=== PATIENT | male | born 1965 | race African-American/Black ===

== ENCOUNTER 2018-04-20 12:25 | Inpatient (IN) | payer MEDICAID ==
[~2018-04-20] VITALS: Ht 180.3 cm; Wt 138.1 kg
[2018-04-20] MEDS ORDERED: ASPIRIN 81 MG TABLET CHEW PO ONE (13:00)
[2018-04-20 13:22] LABS: ALBUMIN 3.1 g/dL (3.4-5.0); ANION GAP 9 mmol/L (5-15); CALCIUM 8.3 mg/dL (8.5-10.1); CHLORIDE 105 mmol/L (98-107)
[2018-04-20 13:28] LABS: ALANINE AMINOTRANSFERASE 33 U/L (12-78); ALKALINE PHOSPHATASE 77 U/L (45-117); BASOPHILS # (AUTO) 0.06 x10^3/uL (0-0.1); BASOPHILS % (AUTO) 1 % (0-1); BILIRUBIN,TOTAL 0.8 mg/dL (0.2-1.0); CREATININE 1.66 mg/dL (0.7-1.3); EOSINOPHILS # (AUTO) 0.27 x10^3/uL (0-0.4); EOSINOPHILS % (AUTO) 3 % (1-7); LYMPHOCYTES # (AUTO) 2.59 x10^3/uL (1-3.4); LYMPHOCYTES % (AUTO) 29 % (22-44); MD NO; MEAN CORPUSCULAR HEMOGLOBIN 31.4 pg (27.5-34.5); MEAN CORPUSCULAR HGB CONC 33.7 g/dL (33.2-36.2); MEAN CORPUSCULAR VOLUME 93.1 fL (81-97); MEAN PLATELET VOLUME 12.4 fL (7.4-10.4); MONOCYTES # (AUTO) 0.92 x10^3/uL (0.2-0.8); MONOCYTES % (AUTO) 10 % (2-9); NEUTROPHILS # (AUTO) 4.99 x10^3/uL (1.8-6.8); NEUTROPHILS % (AUTO) 57 % (42-75); PLATELET COUNT 162 x10^3/uL (130-400); RED BLOOD COUNT 4.96 x10^6/uL (4.38-5.82); RED CELL DISTRIBUTION WIDTH 15.7 % (9.4-14.8); TOTAL PROTEIN 6.7 g/dL (6.4-8.2); TROPONIN I < 0.015 ng/mL (0.000-0.045)
[2018-04-20] MEDS ORDERED: PLEASE ENTER ALLERGIES MC SCH (14:00)
[2018-04-20] MEDS: SODIUM CHLORIDE 0.9% 1,000 ML IV SCH (14:32)
[2018-04-20] MEDS ORDERED: FURO20TA3 PO (14:35)
[2018-04-20] MEDS ORDERED: ATOR-2 PO (14:35)
[2018-04-20] MEDS ORDERED: HYDR-3343 PO (14:35)
[2018-04-20] MEDS ORDERED: POT25TAB PO (14:35)
[2018-04-20] MEDS ORDERED: SPIR25TA3 PO (14:35)
[2018-04-20] MEDS ORDERED: METO-99 PO (14:35)
[2018-04-20] MEDS ORDERED: TIOT18CA INH (14:35)
[2018-04-20] MEDS ORDERED: ONDANSETRON 2MG/ML, 2ML IVPush PRN (15:00)
[2018-04-20] MEDS ORDERED: FUROSEMIDE 40 MG/4 ML IV ONE (15:00)
[2018-04-20] MEDS ORDERED: ALBUTEROL SULFATE 2.5 MG/3 ML NPPB PRN (17:00)
[2018-04-20 17:05] VITALS: BP 115/76
[2018-04-20] MEDS ORDERED: IPRATROPIUM 0.5 MG/2.5 ML INHA ONE (17:41)
[2018-04-20 18:40] VITALS: BP 129/83
[2018-04-20 18:50] LABS: TROPONIN I < 0.015 ng/mL (0.000-0.045)
[2018-04-20] MEDS: HEPARIN 5,000 UNITS/ML, 1ML SQ SCH (22:45)
[2018-04-21 00:47] LABS: BASOPHILS # (AUTO) 0.07 x10^3/uL (0-0.1); BASOPHILS % (AUTO) 1 % (0-1); EOSINOPHILS # (AUTO) 0.28 x10^3/uL (0-0.4); EOSINOPHILS % (AUTO) 4 % (1-7); LYMPHOCYTES # (AUTO) 2.94 x10^3/uL (1-3.4); LYMPHOCYTES % (AUTO) 38 % (22-44); MD NO; MEAN CORPUSCULAR HEMOGLOBIN 32.1 pg (27.5-34.5); MEAN CORPUSCULAR HGB CONC 34.3 g/dL (33.2-36.2); MEAN CORPUSCULAR VOLUME 93.5 fL (81-97); MEAN PLATELET VOLUME 12.1 fL (7.4-10.4); MONOCYTES # (AUTO) 0.87 x10^3/uL (0.2-0.8); MONOCYTES % (AUTO) 11 % (2-9); NEUTROPHILS % (AUTO) 46 % (42-75); PLATELET COUNT 161 x10^3/uL (130-400); RED BLOOD COUNT 4.76 x10^6/uL (4.38-5.82); RED CELL DISTRIBUTION WIDTH 15.3 % (9.4-14.8)
[2018-04-21] MEDS ORDERED: ATOR20TA9 PO (00:49)
[2018-04-21] MEDS ORDERED: POTA20TA89 PO (00:49)
[2018-04-21] MEDS: IPRATROPIUM 0.5 MG/2.5 ML INHA NPPB SCH ×5 (01:00→20:26)
[2018-04-21 01:01] LABS: TROPONIN I < 0.015 ng/mL (0.000-0.045)
[2018-04-21] MEDS: ACETAMINOPHEN 325 MG TABLET PO PRN ×2 (01:01→20:37)
[2018-04-21 01:05] LABS: ALANINE AMINOTRANSFERASE 35 U/L (12-78); ALBUMIN 3.1 g/dL (3.4-5.0); ANION GAP 9 mmol/L (5-15); CALCIUM 8.5 mg/dL (8.5-10.1); CHLORIDE 107 mmol/L (98-107); CREATININE 1.61 mg/dL (0.7-1.3)
[2018-04-21 01:16] LABS: ALKALINE PHOSPHATASE 81 U/L (45-117); BILIRUBIN,TOTAL 0.6 mg/dL (0.2-1.0); THYROID STIMULATING HORMONE 0.881 mIU/L (0.358-3.740); TOTAL PROTEIN 6.7 g/dL (6.4-8.2)
[2018-04-21 02:21] VITALS: BP 115/66
[2018-04-21] MEDS: SODIUM CHLORIDE 0.9% 1,000 ML IV SCH (03:52)
[2018-04-21] MEDS ORDERED: PNEUMOCOCCAL 23 VACCINE IM-VACC ONE (07:00)
[2018-04-21 07:36] VITALS: BP 144/102
[2018-04-21] MEDS: HEPARIN 5,000 UNITS/ML, 1ML SQ SCH ×2 (08:44→20:37)
[2018-04-21] MEDS ORDERED: MAGNESIUM SULFATE PMX 2GM/50ML 50 ML IV ONE (09:00)
[2018-04-21] MEDS ORDERED: FUROSEMIDE 40 MG/4 ML IV ONE (09:30)
[2018-04-21] MEDS ORDERED: POTASSIUM CHLORIDE 20 MEQ TAB.ER.PRT PO ONE (09:30)
[2018-04-21 14:03] VITALS: BP 149/87
[2018-04-21 19:34] VITALS: BP 143/84
[2018-04-22 01:16] VITALS: BP 134/73
[2018-04-22] MEDS: IPRATROPIUM 0.5 MG/2.5 ML INHA NPPB SCH ×2 (03:10→08:31)
[2018-04-22 07:27] VITALS: BP 142/78
[2018-04-22] MEDS: HEPARIN 5,000 UNITS/ML, 1ML SQ SCH (09:33)
[2018-04-22] MEDS ORDERED: POTASSIUM CHLORIDE 20 MEQ TAB.ER.PRT PO ONE (10:30)
[2018-04-22] MEDS ORDERED: FUROSEMIDE 40 MG/4 ML IV ONE (10:30)
== END 2018-04-22 12:45 | disposition home or self-care (01) | DRG 313 ==
LOC: ED 14:09 → SUATTDRO 14:14 → EDIP 14:17 → 5SO 15:36
PROVIDERS: ADMIT Hospitalist; ATTEND Hospitalist
DX: R07.2 Precordial pain (principal); E43 Unspecified severe protein-calorie malnutrition; Z68.41 Body mass index [BMI] 40.0-44.9, adult; I16.1 Hypertensive emergency; N18.4 Chronic kidney disease, stage 4 (severe); I13.0 Hypertensive heart and chronic kidney disease with heart failure and stage 1 through stage 4 chronic kidney disease, or unspecified chronic kidney disease; J98.11 Atelectasis; E66.01 Morbid (severe) obesity due to excess calories; F17.210 Nicotine dependence, cigarettes, uncomplicated; E78.5 Hyperlipidemia, unspecified; I50.9 Heart failure, unspecified; I27.20 Pulmonary hypertension, unspecified; Z82.49 Family history of ischemic heart disease and other diseases of the circulatory system; Z86.79 Personal history of other diseases of the circulatory system; Z95.1 Presence of aortocoronary bypass graft; Z83.3 Family history of diabetes mellitus; Z23 Encounter for immunization; Z90.49 Acquired absence of other specified parts of digestive tract
CPT/HCPCS: 36415; 99285; J7644; 71046; 78582; 80053; 83735; 83880; 84100; 84443; 84484; 85025; 85379; 90732; 93005; 93308; 93321; 93325; 94640; J1644; J1940; A9540; A9558; C9898; J3475; J7030

== ENCOUNTER 2018-04-24 15:26 | Inpatient (IN) | payer MEDICAID ==
[~2018-04-24] VITALS: Ht 180.3 cm; Wt 137.5 kg
[~2018-04-24 15:26] MED LIST: ATOR-2 PO; ATOR20TA9 PO; FURO20TA3 PO; HYDR-3343 PO; METO-99 PO; POT25TAB PO; POTA20TA89 PO; SPIR25TA5 PO; TIOT18CA INH
[2018-04-24] MEDS ORDERED: METOPROLOL 1 MG/ML, 5ML ONE (16:16)
[2018-04-24 16:23] LABS: BASOPHILS # (AUTO) 0.08 x10^3/uL (0-0.1); BASOPHILS % (AUTO) 1 % (0-1); EOSINOPHILS # (AUTO) 0.22 x10^3/uL (0-0.4); EOSINOPHILS % (AUTO) 2 % (1-7); LYMPHOCYTES % (AUTO) 31 % (22-44); MD NO; MEAN CORPUSCULAR HEMOGLOBIN 31.5 pg (27.5-34.5); MEAN CORPUSCULAR HGB CONC 33.8 g/dL (33.2-36.2); MEAN PLATELET VOLUME 12.3 fL (7.4-10.4); MONOCYTES # (AUTO) 1.25 x10^3/uL (0.2-0.8); MONOCYTES % (AUTO) 14 % (2-9); NEUTROPHILS # (AUTO) 4.75 x10^3/uL (1.8-6.8); NEUTROPHILS % (AUTO) 52 % (42-75); PLATELET COUNT 176 x10^3/uL (130-400); RED BLOOD COUNT 5.19 x10^6/uL (4.38-5.82); RED CELL DISTRIBUTION WIDTH 15.7 % (9.4-14.8)
[2018-04-24] MEDS ORDERED: METOPROLOL 1 MG/ML, 5ML IVPush ONE (16:30)
[2018-04-24 16:32] LABS: ALANINE AMINOTRANSFERASE 34 U/L (12-78); ALBUMIN 3.2 g/dL (3.4-5.0); ANION GAP 7 mmol/L (5-15); CALCIUM 8.4 mg/dL (8.5-10.1); CHLORIDE 112 mmol/L (98-107); CREATININE 1.95 mg/dL (0.7-1.3)
[2018-04-24 16:36] LABS: ALKALINE PHOSPHATASE 83 U/L (45-117); BILIRUBIN,TOTAL 0.8 mg/dL (0.2-1.0); TOTAL PROTEIN 7.4 g/dL (6.4-8.2); TROPONIN I < 0.015 ng/mL (0.000-0.045)
[2018-04-24] MEDS ORDERED: SODIUM CHLORIDE 0.9% 1,000ML IVBOLUS ONE (17:00)
[2018-04-24] MEDS ORDERED: VERAPAMIL 2.5 MG/ML, 2ML IVPush ONE ×2 (17:00→17:30)
[2018-04-24] MEDS ORDERED: VERAPAMIL 2.5 MG/ML, 2ML ONE ×2 (17:04→17:18)
[2018-04-24] MEDS ORDERED: POLYETHYLENE GLYCOL 17 GM PACKET PO PRN (18:00)
[2018-04-24] MEDS: METOPROLOL TARTRATE 50 MG TABLET PO SCH ×2 (18:00→21:30)
[2018-04-24] MEDS ORDERED: BISACODYL 10 MG SUPP PR PRN (18:00)
[2018-04-24] MEDS ORDERED: DIGOXIN 0.25 MG/ML, 2ML ONE (18:00)
[2018-04-24] MEDS ORDERED: SODIUM CHLORIDE FLUSH 10ML SYR IVF PRN (18:00)
[2018-04-24] MEDS ORDERED: ONDANSETRON 2MG/ML, 2ML IVPush PRN (18:00)
[2018-04-24] MEDS ORDERED: DIGOXIN 0.25 MG/ML, 2ML IVPush ONE (18:00)
[2018-04-24] MEDS ORDERED: HEPARIN 25,000 UNITS/500ML PMX 500 ML ONE (18:29)
[2018-04-24 18:33] LABS: THYROID STIMULATING HORMONE 1.05 mIU/L (0.358-3.740)
[2018-04-24 18:41] VITALS: BP 123/69
[2018-04-24] MEDS ORDERED: MAGNESIUM SULFATE PMX 2GM/50ML 50 ML IV ONE (19:00)
[2018-04-24] MEDS ORDERED: HEPARIN 5,000 UNITS/ML, 1ML IV ONE (19:00)
[2018-04-24] MEDS: HEPARIN 25,000 UNITS/500ML PMX 500 ML IV PRN (19:11)
[2018-04-24 20:08] VITALS: BP 107/66
[2018-04-24] MEDS ORDERED: CLON0.1T PO (20:14)
[2018-04-24 21:26] VITALS: BP 103/70
[2018-04-24] MEDS: ATORVASTATIN 20 MG TABLET PO SCH (21:29)
[2018-04-24] MEDS: NICOTINE 14MG/24 HR PATCH.TD24 TD SCH (21:30)
[2018-04-24] MEDS: SODIUM CHLORIDE FLUSH 10ML SYR IVF SCH (21:31)
[2018-04-24 22:35] LABS: TROPONIN I 0.016 ng/mL (0.000-0.045)
[2018-04-24] MEDS: ALBUTEROL/IPRATROPIUM 2.5MG/0.5MG, 3 ML NPPB PRN (23:34)
[2018-04-25] VITALS (7 sets, daily range): BP systolic 108–154; BP diastolic 60–88
[2018-04-25] MEDS ORDERED: DIGOXIN 0.25 MG/ML, 2ML IVPush ONE
[2018-04-25] MEDS: HEPARIN 5,000 UNITS/ML, 1ML IV PRN ×3 (01:51→17:17)
[2018-04-25 04:32] LABS: BASOPHILS # (AUTO) 0.07 x10^3/uL (0-0.1); BASOPHILS % (AUTO) 1 % (0-1); EOSINOPHILS # (AUTO) 0.31 x10^3/uL (0-0.4); EOSINOPHILS % (AUTO) 4 % (1-7); LYMPHOCYTES % (AUTO) 35 % (22-44); MD NO; MEAN CORPUSCULAR HGB CONC 34.4 g/dL (33.2-36.2); MEAN PLATELET VOLUME 12.2 fL (7.4-10.4); MONOCYTES % (AUTO) 12 % (2-9); NEUTROPHILS # (AUTO) 4.11 x10^3/uL (1.8-6.8); NEUTROPHILS % (AUTO) 48 % (42-75); PLATELET COUNT 152 x10^3/uL (130-400); RED BLOOD COUNT 5.02 x10^6/uL (4.38-5.82); RED CELL DISTRIBUTION WIDTH 15.1 % (9.4-14.8)
[2018-04-25 04:44] LABS: ALANINE AMINOTRANSFERASE 31 U/L (12-78); ANION GAP 6 mmol/L (5-15); CALCIUM 8.6 mg/dL (8.5-10.1); CHLORIDE 111 mmol/L (98-107)
[2018-04-25 04:49] LABS: ALKALINE PHOSPHATASE 77 U/L (45-117); BILIRUBIN,TOTAL 0.7 mg/dL (0.2-1.0); CREATININE 1.79 mg/dL (0.7-1.3); TOTAL PROTEIN 6.9 g/dL (6.4-8.2)
[2018-04-25] MEDS: FUROSEMIDE 40 MG/4 ML IV SCH ×2 (09:23→17:15)
[2018-04-25] MEDS: SODIUM CHLORIDE FLUSH 10ML SYR IVF SCH ×2 (09:28→21:49)
[2018-04-25] MEDS: SENNA/DOCUSATE TABLET PO SCH (09:29)
[2018-04-25] MEDS: Tiotropium Bromide** (Spiriva**) 18 MCG INH SCH (09:57)
[2018-04-25] MEDS ORDERED: NITROGLYCERIN 0.4 MG BOTTLE (25 TABS) SL PRN (10:00)
[2018-04-25] MEDS ORDERED: NITROGLYCERIN 0.4 MG/SPRAY SL PRN (10:00)
[2018-04-25 10:09] LABS: TROPONIN I < 0.015 ng/mL (0.000-0.045)
[2018-04-25] MEDS: ASPIRIN 81 MG TABLET CHEW PO SCH (10:47)
[2018-04-25] MEDS: METOPROLOL TARTRATE 50 MG TABLET PO SCH ×3 (12:44→21:49)
[2018-04-25] MEDS: HEPARIN 25,000 UNITS/500ML PMX 500 ML IV PRN (13:37)
[2018-04-25] MEDS ORDERED: PHARMACY MAY ADJ FOR RENAL FX MC PRN (16:30)
[2018-04-25] MEDS: NICOTINE 14MG/24 HR PATCH.TD24 TD SCH (17:16)
[2018-04-25] MEDS: ALBUTEROL/IPRATROPIUM 2.5MG/0.5MG, 3 ML NPPB PRN (19:55)
[2018-04-25] MEDS: ATORVASTATIN 20 MG TABLET PO SCH (21:48)
[2018-04-26 03:00] VITALS: BP 118/72
[2018-04-26] MEDS: HEPARIN 25,000 UNITS/500ML PMX 500 ML IV PRN ×2 (04:52→17:51)
[2018-04-26 05:01] LABS: BASOPHILS # (AUTO) 0.13 x10^3/uL (0-0.1); BASOPHILS % (AUTO) 2 % (0-1); EOSINOPHILS # (AUTO) 0.27 x10^3/uL (0-0.4); EOSINOPHILS % (AUTO) 3 % (1-7); LYMPHOCYTES # (AUTO) 3.03 x10^3/uL (1-3.4); LYMPHOCYTES % (AUTO) 37 % (22-44); MD NO; MEAN CORPUSCULAR HGB CONC 34.1 g/dL (33.2-36.2); MEAN CORPUSCULAR VOLUME 93.9 fL (81-97); MEAN PLATELET VOLUME 12.8 fL (7.4-10.4); MONOCYTES # (AUTO) 0.91 x10^3/uL (0.2-0.8); MONOCYTES % (AUTO) 11 % (2-9); NEUTROPHILS # (AUTO) 3.96 x10^3/uL (1.8-6.8); NEUTROPHILS % (AUTO) 48 % (42-75); PLATELET COUNT 152 x10^3/uL (130-400); RED BLOOD COUNT 4.89 x10^6/uL (4.38-5.82)
[2018-04-26 05:17] LABS: ANION GAP 9 mmol/L (5-15); CALCIUM 8.3 mg/dL (8.5-10.1); CHLORIDE 110 mmol/L (98-107)
[2018-04-26 05:22] LABS: CHOLESTEROL, TOTAL 131 mg/dL (140-239); CREATININE 1.86 mg/dL (0.7-1.3); HDL CHOL % 25 % (26-37); HDL CHOLESTEROL (DIRECT) 33 mg/dL (40-60); LDL CHOLESTEROL,CALCULATED 74 mg/dL (54-169); LDL/HDL RATIO 2.2 (0.5-3.0); TRIGLYCERIDES 120 mg/dL (50-200); VLDL CHOLESTEROL 24 mg/dL (0-25)
[2018-04-26] MEDS: HEPARIN 5,000 UNITS/ML, 1ML IV PRN ×2 (05:55→18:58)
[2018-04-26] MEDS: METOPROLOL TARTRATE 50 MG TABLET PO SCH ×3 (06:36→22:45)
[2018-04-26] MEDS: Tiotropium Bromide** (Spiriva**) 18 MCG INH SCH (08:07)
[2018-04-26 08:20] VITALS: BP 129/86
[2018-04-26] MEDS: SENNA/DOCUSATE TABLET PO SCH (09:00)
[2018-04-26] MEDS: SODIUM CHLORIDE FLUSH 10ML SYR IVF SCH ×2 (09:02→20:09)
[2018-04-26] MEDS: FUROSEMIDE 40 MG/4 ML IV SCH (09:02)
[2018-04-26] MEDS: ASPIRIN 81 MG TABLET CHEW PO SCH (09:02)
[2018-04-26 13:45] VITALS: BP 150/99
[2018-04-26] MEDS: ALBUTEROL/IPRATROPIUM 2.5MG/0.5MG, 3 ML NPPB PRN (14:00)
[2018-04-26] MEDS ORDERED: SODIUM BICARB 8.4%,50ML SYR. 150 MEQ in DEXTROSE 5% 1,000 ML IV SCH (16:00)
[2018-04-26] MEDS: NICOTINE 14MG/24 HR PATCH.TD24 TD SCH (17:52)
[2018-04-26 19:14] VITALS: BP 119/77
[2018-04-26] MEDS: ATORVASTATIN 20 MG TABLET PO SCH (20:07)
[2018-04-26] MEDS ORDERED: ACETYLCYSTEINE 600 MG CAPSULE PO SCH (21:00)
[2018-04-27 01:34] LABS: ANION GAP 7 mmol/L (5-15); CALCIUM 8.7 mg/dL (8.5-10.1); CHLORIDE 108 mmol/L (98-107); CREATININE 1.82 mg/dL (0.7-1.3)
[2018-04-27 02:00] VITALS: BP 122/78
[2018-04-27] MEDS: HEPARIN 25,000 UNITS/500ML PMX 500 ML IV PRN ×3 (06:14→12:34)
[2018-04-27] MEDS: METOPROLOL TARTRATE 50 MG TABLET PO SCH ×3 (06:16→20:32)
[2018-04-27] MEDS: ASPIRIN 81 MG TABLET CHEW PO SCH (08:23)
[2018-04-27] MEDS: SODIUM CHLORIDE FLUSH 10ML SYR IVF SCH ×2 (08:23→20:33)
[2018-04-27 08:24] VITALS: BP 138/74
[2018-04-27] MEDS: Tiotropium Bromide** (Spiriva**) 18 MCG INH SCH (08:24)
[2018-04-27] MEDS: SENNA/DOCUSATE TABLET PO SCH (08:24)
[2018-04-27] MEDS ORDERED: FUROSEMIDE 40 MG/4 ML IV SCH (09:00)
[2018-04-27] MEDS ORDERED: FENTANYL PF 100 MCG/2ML ONE (09:24)
[2018-04-27] MEDS ORDERED: MIDAZOLAM 1 MG/ML, 5ML ONE (09:24)
[2018-04-27] MEDS ORDERED: NITROGLYCERIN 5 MG/ML, 10ML ONE (09:25)
[2018-04-27] MEDS ORDERED: VERAPAMIL 2.5 MG/ML, 2ML ONE (09:25)
[2018-04-27] MEDS ORDERED: DIPHENHYDRAMINE 50 MG/ML, 1ML ONE (09:25)
[2018-04-27] MEDS ORDERED: LIDOCAINE-MPF 2%, 2ML ONE (09:26)
[2018-04-27] MEDS ORDERED: HEPARIN 1,000 UNITS/ML, 10ML ONE (10:08)
[2018-04-27] MEDS ORDERED: BIVALIRUDIN 250 MG ONE (10:11)
[2018-04-27] MEDS ORDERED: TICAGRELOR 90 MG TABLET ONE (10:53)
[2018-04-27] MEDS: SODIUM CHLORIDE 0.9% 1,000 ML IV SCH ×2 (11:39→18:27)
[2018-04-27] MEDS: ALBUTEROL/IPRATROPIUM 2.5MG/0.5MG, 3 ML NPPB PRN (12:20)
[2018-04-27] MEDS ORDERED: PROPOFOL 10 MG/ML, 20ML ONE (13:15)
[2018-04-27 14:43] VITALS: BP 132/85
[2018-04-27] MEDS ORDERED: AMIODARONE 150 MG in DEXTROSE 5% 100 ML IV ONE (15:00)
[2018-04-27] MEDS ORDERED: AMIODARONE 900 MG in DEXTROSE 5% 482 ML IV PRN (15:00)
[2018-04-27] MEDS ORDERED: FILTER 0.22 MICRON IV PRN (15:30)
[2018-04-27] MEDS: NICOTINE 14MG/24 HR PATCH.TD24 TD SCH (18:30)
[2018-04-27] MEDS: HEPARIN 5,000 UNITS/ML, 1ML IV PRN (20:21)
[2018-04-27 20:24] VITALS: BP 115/61
[2018-04-27] MEDS: ATORVASTATIN 20 MG TABLET PO SCH (20:31)
[2018-04-27] MEDS: TICAGRELOR 90 MG TABLET PO SCH (20:32)
[2018-04-28] MEDS: HEPARIN 25,000 UNITS/500ML PMX 500 ML IV PRN ×2 (01:21→13:44)
[2018-04-28] MEDS: ACETAMINOPHEN 325 MG TABLET PO PRN ×4 (01:25→21:49)
[2018-04-28 01:30] VITALS: BP_SYST 125; BP_SYST 156; BP_DIAS 101; BP_DIAS 71
[2018-04-28 02:45] LABS: ANION GAP 7 mmol/L (5-15); CALCIUM 8.2 mg/dL (8.5-10.1); CHLORIDE 105 mmol/L (98-107); CREATININE 1.77 mg/dL (0.7-1.3)
[2018-04-28] MEDS: SODIUM CHLORIDE 0.9% 1,000 ML IV SCH (03:39)
[2018-04-28 05:12] VITALS: BP 154/91
[2018-04-28] MEDS: METOPROLOL TARTRATE 50 MG TABLET PO SCH ×3 (05:16→21:37)
[2018-04-28 06:27] VITALS: BP 154/94
[2018-04-28] MEDS: TICAGRELOR 90 MG TABLET PO SCH ×2 (08:05→21:37)
[2018-04-28] MEDS: ASPIRIN 81 MG TABLET CHEW PO SCH (08:05)
[2018-04-28] MEDS: FUROSEMIDE 40 MG TABLET PO SCH (08:05)
[2018-04-28] MEDS: SENNA/DOCUSATE TABLET PO SCH (09:00)
[2018-04-28] MEDS: Tiotropium Bromide** (Spiriva**) 18 MCG INH SCH (09:00)
[2018-04-28] MEDS: POTASSIUM CHLORIDE 20 MEQ TAB.ER.PRT PO SCH ×2 (09:05→17:23)
[2018-04-28] MEDS: SODIUM CHLORIDE FLUSH 10ML SYR IVF SCH ×2 (09:14→21:38)
[2018-04-28] MEDS: AMIODARONE 200 MG TABLET PO SCH ×2 (11:31→21:37)
[2018-04-28] MEDS: ALBUTEROL/IPRATROPIUM 2.5MG/0.5MG, 3 ML NPPB PRN (11:45)
[2018-04-28 14:00] VITALS: BP 162/84
[2018-04-28] MEDS: NICOTINE 14MG/24 HR PATCH.TD24 TD SCH (17:23)
[2018-04-28 19:34] VITALS: BP 146/98
[2018-04-28] MEDS: ATORVASTATIN 20 MG TABLET PO SCH (21:37)
[2018-04-28 21:38] VITALS: BP 135/85
[2018-04-29] VITALS (7 sets, daily range): BP systolic 130–170; BP diastolic 69–104
[2018-04-29] MEDS: HEPARIN 25,000 UNITS/500ML PMX 500 ML IV PRN (02:23)
[2018-04-29 05:16] LABS: CHLORIDE 106 mmol/L (98-107)
[2018-04-29 05:24] LABS: ANION GAP 9 mmol/L (5-15); CALCIUM 8.9 mg/dL (8.5-10.1); CREATININE 1.68 mg/dL (0.7-1.3)
[2018-04-29] MEDS: ACETAMINOPHEN 325 MG TABLET PO PRN (05:38)
[2018-04-29] MEDS: METOPROLOL TARTRATE 50 MG TABLET PO SCH ×3 (05:38→21:01)
[2018-04-29] MEDS: Tiotropium Bromide** (Spiriva**) 18 MCG INH SCH (09:00)
[2018-04-29] MEDS: SENNA/DOCUSATE TABLET PO SCH (09:02)
[2018-04-29] MEDS: SODIUM CHLORIDE FLUSH 10ML SYR IVF SCH ×2 (09:02→21:01)
[2018-04-29] MEDS: AMIODARONE 200 MG TABLET PO SCH ×2 (09:02→21:01)
[2018-04-29] MEDS: ASPIRIN 81 MG TABLET CHEW PO SCH (09:02)
[2018-04-29] MEDS: FUROSEMIDE 40 MG TABLET PO SCH (09:03)
[2018-04-29] MEDS: TICAGRELOR 90 MG TABLET PO SCH ×2 (09:03→21:53)
[2018-04-29] MEDS: ALBUTEROL/IPRATROPIUM 2.5MG/0.5MG, 3 ML NPPB PRN ×2 (09:18→19:39)
[2018-04-29] MEDS ORDERED: OMNIPAQUE 350 MG/ML, 150 ML BOTTLE ONE (10:15)
[2018-04-29] MEDS: APIXABAN 5 MG TABLET PO SCH ×2 (12:04→21:53)
[2018-04-29 16:13] LABS: ANION GAP 5 mmol/L (5-15); CALCIUM 9.2 mg/dL (8.5-10.1); CHLORIDE 105 mmol/L (98-107)
[2018-04-29 16:14] LABS: CREATININE 1.76 mg/dL (0.7-1.3)
[2018-04-29] MEDS: POTASSIUM CHLORIDE 20 MEQ TAB.ER.PRT PO SCH (17:44)
[2018-04-29] MEDS: NICOTINE 14MG/24 HR PATCH.TD24 TD SCH (17:44)
[2018-04-29] MEDS: ATORVASTATIN 20 MG TABLET PO SCH (21:01)
[2018-04-29] MEDS ORDERED: hydrALAzine 20 MG/ML, 1ML IV PRN (21:30)
[2018-04-30 00:30] VITALS: BP_SYST 135; BP_SYST 147; BP_SYST 158; BP_DIAS 73; BP_DIAS 85; BP_DIAS 97
[2018-04-30] MEDS ORDERED: LABETALOL 5MG/ML, 20ML IVPush ONE (01:00)
[2018-04-30 02:45] VITALS: BP 112/59
[2018-04-30 05:12] VITALS: BP 150/84
[2018-04-30] MEDS: METOPROLOL TARTRATE 50 MG TABLET PO SCH ×2 (05:13→13:03)
[2018-04-30 06:43] VITALS: BP 165/94
[2018-04-30 07:06] VITALS: BP 144/95
[2018-04-30] MEDS: SENNA/DOCUSATE TABLET PO SCH (09:00)
[2018-04-30] MEDS: POTASSIUM CHLORIDE 20 MEQ TAB.ER.PRT PO SCH (09:50)
[2018-04-30] MEDS: FUROSEMIDE 40 MG TABLET PO SCH (09:51)
[2018-04-30] MEDS: APIXABAN 5 MG TABLET PO SCH (09:51)
[2018-04-30] MEDS: AMIODARONE 200 MG TABLET PO SCH (09:51)
[2018-04-30] MEDS: ASPIRIN 81 MG TABLET CHEW PO SCH (09:51)
[2018-04-30] MEDS: TICAGRELOR 90 MG TABLET PO SCH (09:51)
[2018-04-30] MEDS: SODIUM CHLORIDE FLUSH 10ML SYR IVF SCH (09:52)
[2018-04-30] MEDS: Tiotropium Bromide** (Spiriva**) 18 MCG INH SCH (09:52)
[2018-04-30] MEDS: ACETAMINOPHEN 325 MG TABLET PO PRN (10:02)
[2018-04-30 11:01] VITALS: BP 126/82
[2018-04-30] MEDS ORDERED: ASPI-515 PO (11:33)
[2018-04-30] MEDS ORDERED: AMIO200T42 PO (11:33)
[2018-04-30] MEDS ORDERED: PRED20TA PO (11:33)
[2018-04-30] MEDS ORDERED: TICA90TA PO (11:33)
[2018-04-30] MEDS ORDERED: METO50TA82 PO (11:33)
[2018-04-30] MEDS ORDERED: NITR0.4T SL (11:33)
[2018-04-30] MEDS ORDERED: APIX5TAB PO (11:33)
[2018-04-30] MEDS ORDERED: ATOR20TA9 PO (11:33)
[2018-04-30] MEDS ORDERED: POTA20TA6 PO ×2 (11:33→14:55)
[2018-04-30] MEDS ORDERED: FURO40TA6 PO (11:35)
== END 2018-04-30 14:03 | disposition home or self-care (01) | DRG 248 ==
LOC: ED 17:42 → EDIP 17:43 → ED 17:55 → 5SO 18:45 → DCLOUNGE 04-30 13:43
PROVIDERS: ADMIT Hospitalist; ATTEND Hospitalist
PROC: 02703DZ Dilation of Coronary Artery, One Artery with Intraluminal Device, Percutaneous Approach (ICD-10-PCS; 2018-04-27)
PROC: 4A023N7 Measurement of Cardiac Sampling and Pressure, Left Heart, Percutaneous Approach (ICD-10-PCS; 2018-04-27)
PROC: B2111ZZ Fluoroscopy of Multiple Coronary Arteries using Low Osmolar Contrast (ICD-10-PCS; 2018-04-27)
PROC: B2151ZZ Fluoroscopy of Left Heart using Low Osmolar Contrast (ICD-10-PCS; 2018-04-27)
PROC: 5A2204Z Restoration of Cardiac Rhythm, Single (ICD-10-PCS; principal; 2018-04-27 13:00)
DX: I25.10 Atherosclerotic heart disease of native coronary artery without angina pectoris (principal); I50.33 Acute on chronic diastolic (congestive) heart failure; D68.59 Other primary thrombophilia; E44.1 Mild protein-calorie malnutrition; I13.0 Hypertensive heart and chronic kidney disease with heart failure and stage 1 through stage 4 chronic kidney disease, or unspecified chronic kidney disease; I48.92 Unspecified atrial flutter; J98.11 Atelectasis; N17.9 Acute kidney failure, unspecified; Z68.41 Body mass index [BMI] 40.0-44.9, adult; E66.01 Morbid (severe) obesity due to excess calories; E78.5 Hyperlipidemia, unspecified; E87.6 Hypokalemia; F17.210 Nicotine dependence, cigarettes, uncomplicated; I48.91 Unspecified atrial fibrillation; N18.3 Chronic kidney disease, stage 3 (moderate); M10.9 Gout, unspecified; Z71.6 Tobacco abuse counseling; Z79.899 Other long term (current) drug therapy; Z82.49 Family history of ischemic heart disease and other diseases of the circulatory system; Z86.79 Personal history of other diseases of the circulatory system; Z91.14 Patient's other noncompliance with medication regimen; Z95.5 Presence of coronary angioplasty implant and graft
CPT/HCPCS: 36415; 73630; 92960; 93458; 99285; J7620; 71046; 71275; 80048; 80053; 80061; 80162; 83735; 83880; 84443; 84484; 84550; 85025; 85520; 93005; 93312; 93321; 93325; 94640; 94660; 96374; 96375; 99156; 99157; C1769; C1876; C1894; J0583; J1644; J1940; J2250; J2704; J3010; J3490; J7070; Q9967; C1725; C1887; J0282; J1160; J1200; J3475; J7030; J7512

== ENCOUNTER 2018-05-09 09:33 | Emergency (ER) | payer MEDICAID ==
[~2018-05-09] VITALS: Ht 180.3 cm; Wt 139.5 kg
[~2018-05-09 09:33] MED LIST changes: +AMIO200T42 PO; +APIX5TAB PO; +ASPI-515 PO; +CLON0.1T PO; +FURO40TA6 PO; +METO50TA82 PO; +NITR0.4T SL; +POTA20TA6 PO; +PRED20TA PO; +TICA90TA PO
[2018-05-09] MEDS ORDERED: METO25TA35 PO (09:55)
[2018-05-09] MEDS ORDERED: CLON0.25 PO (09:56)
[2018-05-09 10:38] LABS: BASOPHILS # (AUTO) 0.05 x10^3/uL (0-0.1); BASOPHILS % (AUTO) 1 % (0-1); EOSINOPHILS # (AUTO) 0.19 x10^3/uL (0-0.4); EOSINOPHILS % (AUTO) 2 % (1-7); LYMPHOCYTES # (AUTO) 1.89 x10^3/uL (1-3.4); LYMPHOCYTES % (AUTO) 20 % (22-44); MD NO; MEAN PLATELET VOLUME 12.2 fL (7.4-10.4); MONOCYTES # (AUTO) 0.62 x10^3/uL (0.2-0.8); MONOCYTES % (AUTO) 7 % (2-9); NEUTROPHILS # (AUTO) 6.79 x10^3/uL (1.8-6.8); NEUTROPHILS % (AUTO) 71 % (42-75); PLATELET COUNT 172 x10^3/uL (130-400); RED BLOOD COUNT 4.94 x10^6/uL (4.38-5.82); RED CELL DISTRIBUTION WIDTH 15.8 % (9.4-14.8)
[2018-05-09 10:48] LABS: INTERNATIONAL NORMALIZED RATIO 1.06 (0.93-1.1); PROTHROMBIN TIME 10.9 Seconds (9.6-11.5)
[2018-05-09 10:50] LABS: ALANINE AMINOTRANSFERASE 34 U/L (12-78); ALBUMIN 3.2 g/dL (3.4-5.0); ANION GAP 7 mmol/L (5-15); CALCIUM 8.3 mg/dL (8.5-10.1); CHLORIDE 113 mmol/L (98-107); CREATININE 1.62 mg/dL (0.7-1.3)
[2018-05-09 10:54] LABS: ALKALINE PHOSPHATASE 83 U/L (45-117); BILIRUBIN,TOTAL 0.7 mg/dL (0.2-1.0); TOTAL PROTEIN 7.1 g/dL (6.4-8.2); TROPONIN I < 0.015 ng/mL (0.000-0.045)
[2018-05-09 12:08] VITALS: BP 187/104
== END 2018-05-09 12:22 | disposition left against medical advice (07) ==
LOC: ED 12:16
DX: M10.9 Gout, unspecified (principal); E78.5 Hyperlipidemia, unspecified; I50.9 Heart failure, unspecified; I11.0 Hypertensive heart disease with heart failure
CPT/HCPCS: 36415; 71045; 80053; 83880; 84484; 85025; 85610; 85730; 93005; 99285

== ENCOUNTER 2018-05-09 13:39 | Inpatient (IN) | payer MEDICAID ==
[~2018-05-09] VITALS: Ht 180.3 cm; Wt 138.7 kg
[~2018-05-09 13:39] MED LIST changes: +CLON0.25 PO; +METO25TA35 PO
[2018-05-09] MEDS ORDERED: SODIUM CHLORIDE FLUSH 10ML SYR IVF ONE (14:30)
[2018-05-09] MEDS ORDERED: COLCHICINE 0.6 MG TABLET PO ONE (14:30)
[2018-05-09] MEDS ORDERED: MORPHINE SULFATE 4 MG/ML, 1ML IVPush PRN (14:30)
[2018-05-09] MEDS ORDERED: COLCHICINE 0.6 MG TABLET ONE (14:37)
[2018-05-09] MEDS: PLEASE ENTER HEIGHT AND WEIGHT MC SCH ×2 (14:43→14:45)
[2018-05-09 14:56] LABS: TROPONIN I < 0.015 ng/mL (0.000-0.045)
[2018-05-09 17:35] VITALS: BP 158/99
[2018-05-09] MEDS ORDERED: ENOXAPARIN 40 MG/0.4 ML SQ SCH (19:00)
[2018-05-09] MEDS ORDERED: morphine SULFATE 10 MG/ML, 1ML IVPush PRN (19:00)
[2018-05-09] MEDS ORDERED: ONDANSETRON 2MG/ML, 2ML IVPush PRN (19:00)
[2018-05-09] MEDS ORDERED: LABETALOL 5MG/ML, 20ML IVPush PRN (19:00)
[2018-05-09] MEDS ORDERED: ONDANSETRON ODT 4 MG PO PRN (19:00)
[2018-05-09] MEDS ORDERED: POLYETHYLENE GLYCOL 17 GM PACKET PO PRN (19:00)
[2018-05-09] MEDS ORDERED: NITROGLYCERIN 0.4 MG BOTTLE (25 TABS) SL PRN (19:30)
[2018-05-09] MEDS ORDERED: CLONAZEPAM 0.25 MG PO SCH (19:30)
[2018-05-09 19:54] LABS: ALBUMIN 3.2 g/dL (3.4-5.0); ANION GAP 7 mmol/L (5-15); BASOPHILS # (AUTO) 0.06 x10^3/uL (0-0.1); BASOPHILS % (AUTO) 1 % (0-1); CALCIUM 8.5 mg/dL (8.5-10.1); CHLORIDE 112 mmol/L (98-107); CREATININE 1.49 mg/dL (0.7-1.3); EOSINOPHILS # (AUTO) 0.24 x10^3/uL (0-0.4); EOSINOPHILS % (AUTO) 3 % (1-7); LYMPHOCYTES # (AUTO) 2.68 x10^3/uL (1-3.4); LYMPHOCYTES % (AUTO) 29 % (22-44); MD NO; MEAN CORPUSCULAR HEMOGLOBIN 32.1 pg (27.5-34.5); MEAN CORPUSCULAR HGB CONC 34.1 g/dL (33.2-36.2); MEAN CORPUSCULAR VOLUME 94.2 fL (81-97); MEAN PLATELET VOLUME 12.2 fL (7.4-10.4); MONOCYTES # (AUTO) 1.12 x10^3/uL (0.2-0.8); MONOCYTES % (AUTO) 12 % (2-9); NEUTROPHILS # (AUTO) 5.28 x10^3/uL (1.8-6.8); NEUTROPHILS % (AUTO) 56 % (42-75); PLATELET COUNT 165 x10^3/uL (130-400); RED BLOOD COUNT 4.91 x10^6/uL (4.38-5.82); RED CELL DISTRIBUTION WIDTH 15.8 % (9.4-14.8)
[2018-05-09 19:57] LABS: FREE T4 (FREE THYROXINE) 1.19 ng/dL (0.76-1.46)
[2018-05-09 20:04] VITALS: BP 223/128
[2018-05-09 20:11] VITALS: BP 198/129
[2018-05-09] MEDS: methylPREDNISolone SOD SUCC 125 MG/2 ML IVPush SCH (20:58)
[2018-05-09] MEDS: ATORVASTATIN 40 MG TABLET PO SCH (20:59)
[2018-05-09] MEDS: AMIODARONE 200 MG TABLET PO SCH (20:59)
[2018-05-09] MEDS: METOPROLOL TARTRATE 50 MG TABLET PO SCH (21:00)
[2018-05-09] MEDS: APIXABAN 5 MG TABLET PO SCH (21:00)
[2018-05-09] MEDS ORDERED: IPRATROPIUM 0.5 MG/2.5 ML INHA HHN SCH (21:30)
[2018-05-09] MEDS ORDERED: ACETAMINOPHEN 325 MG TABLET ONE (21:55)
[2018-05-09] MEDS: ACETAMINOPHEN 325 MG TABLET PO PRN (22:13)
[2018-05-09] MEDS: TICAGRELOR 90 MG TABLET PO SCH (22:14)
[2018-05-10] MEDS ORDERED: ALBUTEROL/IPRATROPIUM 2.5MG/0.5MG, 3 ML ONE ×2 (00:55→06:40)
[2018-05-10 03:35] VITALS: BP 144/92
[2018-05-10] MEDS: methylPREDNISolone SOD SUCC 125 MG/2 ML IVPush SCH ×3 (05:37→21:07)
[2018-05-10] MEDS: ACETAMINOPHEN 325 MG TABLET PO PRN ×3 (05:46→21:08)
[2018-05-10 05:58] LABS: BASOPHILS # (AUTO) 0.02 x10^3/uL (0-0.1); BASOPHILS % (AUTO) 0 % (0-1); EOSINOPHILS % (AUTO) 0 % (1-7); LYMPHOCYTES # (AUTO) 0.76 x10^3/uL (1-3.4); LYMPHOCYTES % (AUTO) 8 % (22-44); MD NO; MEAN CORPUSCULAR HEMOGLOBIN 31.7 pg (27.5-34.5); MEAN CORPUSCULAR HGB CONC 34.1 g/dL (33.2-36.2); MEAN CORPUSCULAR VOLUME 93.1 fL (81-97); MEAN PLATELET VOLUME 12.7 fL (7.4-10.4); MONOCYTES # (AUTO) 0.04 x10^3/uL (0.2-0.8); MONOCYTES % (AUTO) 1 % (2-9); NEUTROPHILS # (AUTO) 8.45 x10^3/uL (1.8-6.8); NEUTROPHILS % (AUTO) 91 % (42-75); PLATELET COUNT 179 x10^3/uL (130-400); RED BLOOD COUNT 5.11 x10^6/uL (4.38-5.82)
[2018-05-10 06:14] LABS: ALBUMIN 3.3 g/dL (3.4-5.0)
[2018-05-10 06:27] LABS: ALANINE AMINOTRANSFERASE 33 U/L (12-78); ALKALINE PHOSPHATASE 86 U/L (45-117); ANION GAP 10 mmol/L (5-15); BILIRUBIN,TOTAL 0.9 mg/dL (0.2-1.0); CHLORIDE 111 mmol/L (98-107); CREATININE 1.89 mg/dL (0.7-1.3); THYROID STIMULATING HORMONE 0.802 mIU/L (0.358-3.740); TOTAL PROTEIN 7.8 g/dL (6.4-8.2)
[2018-05-10 06:34] VITALS: BP 125/82
[2018-05-10] MEDS ORDERED: ALBUTEROL/IPRATROPIUM 2.5MG/0.5MG, 3 ML NPPB PRN (07:00)
[2018-05-10] MEDS: ASPIRIN 81 MG TABLET EC PO SCH (08:30)
[2018-05-10] MEDS: APIXABAN 5 MG TABLET PO SCH ×2 (08:30→21:09)
[2018-05-10] MEDS: AMIODARONE 200 MG TABLET PO SCH ×2 (08:31→21:08)
[2018-05-10] MEDS: SENNA/DOCUSATE TABLET PO SCH (08:31)
[2018-05-10] MEDS: TICAGRELOR 90 MG TABLET PO SCH ×2 (08:31→21:08)
[2018-05-10] MEDS: METOPROLOL TARTRATE 50 MG TABLET PO SCH ×3 (08:31→21:08)
[2018-05-10] MEDS: ALBUTEROL/IPRATROPIUM 2.5MG/0.5MG, 3 ML NPPB SCH ×3 (08:45→20:55)
[2018-05-10] MEDS ORDERED: IPRATROPIUM 0.5 MG/2.5 ML INHA HHN SCH (09:00)
[2018-05-10] MEDS ORDERED: COLCHICINE 0.6 MG TABLET PO SCH (09:00)
[2018-05-10] MEDS ORDERED: ALBUTEROL SULFATE 2.5 MG/3 ML NPPB SCH (09:00)
[2018-05-10] MEDS: SODIUM CHLORIDE 0.9% 500 ML IV SCH ×2 (10:34→17:03)
[2018-05-10] MEDS: NICOTINE 14MG/24 HR PATCH.TD24 TD SCH (12:43)
[2018-05-10 12:50] VITALS: BP 143/85
[2018-05-10] MEDS: Tiotropium Bromide** (Spiriva**) 18 MCG) INH SCH (16:30)
[2018-05-10 20:24] VITALS: BP 151/85
[2018-05-10] MEDS: ATORVASTATIN 40 MG TABLET PO SCH (21:07)
[2018-05-10] MEDS: NEUTRA PHOS K 250 MG TABLET PO SCH (21:08)
[2018-05-10] MEDS ORDERED: LABETALOL 5MG/ML, 20ML IVPush PRN (21:30)
[2018-05-11] MEDS: ALBUTEROL/IPRATROPIUM 2.5MG/0.5MG, 3 ML NPPB SCH ×4 (03:05→19:33)
[2018-05-11 03:08] VITALS: BP 162/78
[2018-05-11] MEDS: methylPREDNISolone SOD SUCC 125 MG/2 ML IVPush SCH (05:19)
[2018-05-11 05:41] LABS: ALBUMIN 3.1 g/dL (3.4-5.0); CALCIUM 8.8 mg/dL (8.5-10.1); CHLORIDE 112 mmol/L (98-107)
[2018-05-11 05:50] LABS: ANION GAP 7 mmol/L (5-15); CREATININE 1.73 mg/dL (0.7-1.3)
[2018-05-11 06:06] LABS: BASOPHILS # (AUTO) 0.01 x10^3/uL (0-0.1); BASOPHILS % (AUTO) 0 % (0-1); EOSINOPHILS % (AUTO) 0 % (1-7); LYMPHOCYTES # (AUTO) 0.93 x10^3/uL (1-3.4); LYMPHOCYTES % (AUTO) 5 % (22-44); MD SCAN; MEAN CORPUSCULAR HEMOGLOBIN 31.9 pg (27.5-34.5); MEAN CORPUSCULAR HGB CONC 33.7 g/dL (33.2-36.2); MEAN CORPUSCULAR VOLUME 94.7 fL (81-97); MEAN PLATELET VOLUME 12.2 fL (7.4-10.4); MONOCYTES # (AUTO) 0.58 x10^3/uL (0.2-0.8); MONOCYTES % (AUTO) 3 % (2-9); NEUTROPHILS # (AUTO) 16.65 x10^3/uL (1.8-6.8); NEUTROPHILS % (AUTO) 92 % (42-75); PLATELET COUNT 176 x10^3/uL (130-400); RED BLOOD COUNT 4.71 x10^6/uL (4.38-5.82); RED CELL DISTRIBUTION WIDTH 16.1 % (9.4-14.8)
[2018-05-11 08:13] VITALS: BP 124/62
[2018-05-11] MEDS: NEUTRA PHOS K 250 MG TABLET PO SCH ×2 (09:43→19:50)
[2018-05-11] MEDS: TICAGRELOR 90 MG TABLET PO SCH ×2 (09:43→19:51)
[2018-05-11] MEDS: METOPROLOL TARTRATE 50 MG TABLET PO SCH ×3 (09:44→19:51)
[2018-05-11] MEDS: AMIODARONE 200 MG TABLET PO SCH ×2 (09:44→19:51)
[2018-05-11] MEDS: APIXABAN 5 MG TABLET PO SCH ×2 (09:44→19:51)
[2018-05-11] MEDS: ASPIRIN 81 MG TABLET EC PO SCH (09:44)
[2018-05-11] MEDS: Tiotropium Bromide** (Spiriva**) 18 MCG) INH SCH (09:44)
[2018-05-11] MEDS: SENNA/DOCUSATE TABLET PO SCH (09:45)
[2018-05-11] MEDS: NICOTINE 14MG/24 HR PATCH.TD24 TD SCH (12:36)
[2018-05-11 13:03] VITALS: BP 162/84
[2018-05-11 14:38] VITALS: BP 145/68
[2018-05-11 19:49] VITALS: BP 163/80
[2018-05-11] MEDS: ATORVASTATIN 40 MG TABLET PO SCH (19:51)
[2018-05-12 01:47] VITALS: BP 143/82
[2018-05-12] MEDS: ALBUTEROL/IPRATROPIUM 2.5MG/0.5MG, 3 ML NPPB SCH ×3 (03:00→15:00)
[2018-05-12 06:02] LABS: ALANINE AMINOTRANSFERASE 44 U/L (12-78); ANION GAP 7 mmol/L (5-15); CALCIUM 8.7 mg/dL (8.5-10.1); CHLORIDE 114 mmol/L (98-107); CREATININE 1.57 mg/dL (0.7-1.3)
[2018-05-12 06:04] LABS: ALKALINE PHOSPHATASE 87 U/L (45-117); BILIRUBIN,TOTAL 0.3 mg/dL (0.2-1.0); TOTAL PROTEIN 6.7 g/dL (6.4-8.2)
[2018-05-12 06:13] LABS: MEAN CORPUSCULAR HEMOGLOBIN 31.1 pg (27.5-34.5); MEAN CORPUSCULAR HGB CONC 32.8 g/dL (33.2-36.2); MEAN CORPUSCULAR VOLUME 94.8 fL (81-97); MEAN PLATELET VOLUME 12.5 fL (7.4-10.4); PLATELET COUNT 183 x10^3/uL (130-400); RED BLOOD COUNT 4.62 x10^6/uL (4.38-5.82); RED CELL DISTRIBUTION WIDTH 16.3 % (9.4-14.8)
[2018-05-12 07:23] LABS: BASOPHILS # (AUTO) 0.01 x10^3/uL (0-0.1); BASOPHILS % (AUTO) 0 % (0-1); EOSINOPHILS # (AUTO) 0.02 x10^3/uL (0-0.4); EOSINOPHILS % (AUTO) 0 % (1-7); LYMPHOCYTES # (AUTO) 1.11 x10^3/uL (1-3.4); LYMPHOCYTES % (AUTO) 7 % (22-44); MD SCAN; MONOCYTES # (AUTO) 0.86 x10^3/uL (0.2-0.8); MONOCYTES % (AUTO) 6 % (2-9); NEUTROPHILS # (AUTO) 13.11 x10^3/uL (1.8-6.8); NEUTROPHILS % (AUTO) 87 % (42-75)
[2018-05-12] MEDS: SENNA/DOCUSATE TABLET PO SCH (09:00)
[2018-05-12] MEDS: Tiotropium Bromide** (Spiriva**) 18 MCG) INH SCH (09:00)
[2018-05-12 09:25] VITALS: BP 159/71
[2018-05-12] MEDS: METOPROLOL TARTRATE 50 MG TABLET PO SCH ×2 (09:32→15:32)
[2018-05-12] MEDS: ASPIRIN 81 MG TABLET EC PO SCH (09:32)
[2018-05-12] MEDS: TICAGRELOR 90 MG TABLET PO SCH (09:33)
[2018-05-12] MEDS: NEUTRA PHOS K 250 MG TABLET PO SCH (09:33)
[2018-05-12] MEDS: APIXABAN 5 MG TABLET PO SCH (09:34)
[2018-05-12] MEDS: AMIODARONE 200 MG TABLET PO SCH (09:39)
[2018-05-12] MEDS: NICOTINE 14MG/24 HR PATCH.TD24 TD SCH (12:10)
[2018-05-12] MEDS ORDERED: PRED10TA PO (13:47)
[2018-05-12] MEDS ORDERED: ALLO300T PO (13:50)
[2018-05-12 15:04] VITALS: BP 167/85
== END 2018-05-12 18:30 | disposition home or self-care (01) | DRG 682 ==
LOC: ED 15:38 → EDIP 15:54 → 4EST 17:31
PROVIDERS: ADMIT Hospitalist; ATTEND Hospitalist
DX: N17.9 Acute kidney failure, unspecified (principal); J96.01 Acute respiratory failure with hypoxia; E44.1 Mild protein-calorie malnutrition; Z68.41 Body mass index [BMI] 40.0-44.9, adult; I13.0 Hypertensive heart and chronic kidney disease with heart failure and stage 1 through stage 4 chronic kidney disease, or unspecified chronic kidney disease; I48.92 Unspecified atrial flutter; I50.32 Chronic diastolic (congestive) heart failure; J44.1 Chronic obstructive pulmonary disease with (acute) exacerbation; D68.69 Other thrombophilia; M10.9 Gout, unspecified; D72.829 Elevated white blood cell count, unspecified; E66.01 Morbid (severe) obesity due to excess calories; F17.200 Nicotine dependence, unspecified, uncomplicated; I25.10 Atherosclerotic heart disease of native coronary artery without angina pectoris; I48.91 Unspecified atrial fibrillation; I71.2 Thoracic aortic aneurysm, without rupture; N18.9 Chronic kidney disease, unspecified; T38.0X5A Adverse effect of glucocorticoids and synthetic analogues, initial encounter; Z82.49 Family history of ischemic heart disease and other diseases of the circulatory system; Z86.79 Personal history of other diseases of the circulatory system; Z95.5 Presence of coronary angioplasty implant and graft; Z90.49 Acquired absence of other specified parts of digestive tract
CPT/HCPCS: 36415; 73620; 99285; J7620; 71250; 76770; 80048; 80053; 82040; 83735; 83880; 84100; 84439; 84443; 84484; 84550; 85025; 87040; 93005; 93970; 94640; J2405; J2930; J7040; J7512

== ENCOUNTER 2018-05-20 21:29 | Inpatient (IN) | payer MEDICAID ==
[~2018-05-20] VITALS: Ht 180.3 cm; Wt 137.5 kg
[~2018-05-20 21:29] MED LIST changes: +ALLO300T PO; +PRED10TA PO
[2018-05-20] MEDS ORDERED: SODIUM CHLORIDE FLUSH 10ML SYR IVF ONE (22:00)
[2018-05-20 22:02] LABS: BASOPHILS # (AUTO) 0.06 x10^3/uL (0-0.1); BASOPHILS % (AUTO) 1 % (0-1); EOSINOPHILS # (AUTO) 0.23 x10^3/uL (0-0.4); EOSINOPHILS % (AUTO) 3 % (1-7); LYMPHOCYTES # (AUTO) 2.21 x10^3/uL (1-3.4); LYMPHOCYTES % (AUTO) 27 % (22-44); MD NO; MEAN CORPUSCULAR HEMOGLOBIN 31.7 pg (27.5-34.5); MEAN CORPUSCULAR HGB CONC 33.9 g/dL (33.2-36.2); MEAN CORPUSCULAR VOLUME 93.4 fL (81-97); MEAN PLATELET VOLUME 11.7 fL (7.4-10.4); MONOCYTES # (AUTO) 0.49 x10^3/uL (0.2-0.8); MONOCYTES % (AUTO) 6 % (2-9); NEUTROPHILS # (AUTO) 5.15 x10^3/uL (1.8-6.8); NEUTROPHILS % (AUTO) 63 % (42-75); PLATELET COUNT 174 x10^3/uL (130-400); RED BLOOD COUNT 5.13 x10^6/uL (4.38-5.82); RED CELL DISTRIBUTION WIDTH 16.6 % (9.4-14.8)
[2018-05-20 22:12] LABS: ALANINE AMINOTRANSFERASE 44 U/L (12-78); ANION GAP 8 mmol/L (5-15); CALCIUM 8.2 mg/dL (8.5-10.1); CHLORIDE 111 mmol/L (98-107); CREATININE 1.55 mg/dL (0.7-1.3); INTERNATIONAL NORMALIZED RATIO 0.99 (0.93-1.1); PROTHROMBIN TIME 10.2 Seconds (9.6-11.5)
[2018-05-20 22:15] LABS: ALKALINE PHOSPHATASE 96 U/L (45-117); BILIRUBIN,TOTAL 0.6 mg/dL (0.2-1.0); TOTAL PROTEIN 6.4 g/dL (6.4-8.2)
[2018-05-20] MEDS: METOPROLOL TARTRATE 50 MG TABLET PO SCH (23:30)
[2018-05-20] MEDS ORDERED: NITROGLYCERIN 0.4 MG BOTTLE (25 TABS) SL PRN (23:30)
[2018-05-20] MEDS ORDERED: BISACODYL 10 MG SUPP PR PRN (23:30)
[2018-05-20] MEDS ORDERED: ACETAMINOPHEN 325 MG TABLET PO PRN (23:30)
[2018-05-20] MEDS ORDERED: ATORVASTATIN 40 MG TABLET PO SCH (23:30)
[2018-05-20] MEDS ORDERED: POLYETHYLENE GLYCOL 17 GM PACKET PO PRN (23:30)
[2018-05-20] MEDS ORDERED: ONDANSETRON 2MG/ML, 2ML IVPush PRN (23:30)
[2018-05-21] MEDS: TICAGRELOR 90 MG TABLET PO SCH ×2 (00:53→08:51)
[2018-05-21] MEDS: APIXABAN 5 MG TABLET PO SCH ×2 (00:54→08:51)
[2018-05-21] MEDS: AMIODARONE 200 MG TABLET PO SCH ×2 (00:54→08:51)
[2018-05-21] MEDS: SODIUM CHLORIDE FLUSH 10ML SYR IVF SCH ×2 (00:54→08:52)
[2018-05-21] MEDS ORDERED: IPRATROPIUM 0.5 MG/2.5 ML INHA ONE ×2 (02:16→06:45)
[2018-05-21 02:38] VITALS: BP 150/98
[2018-05-21 04:47] LABS: BASOPHILS # (AUTO) 0.04 x10^3/uL (0-0.1); BASOPHILS % (AUTO) 1 % (0-1); EOSINOPHILS % (AUTO) 3 % (1-7); LYMPHOCYTES # (AUTO) 2.17 x10^3/uL (1-3.4); LYMPHOCYTES % (AUTO) 26 % (22-44); MD NO; MEAN CORPUSCULAR HEMOGLOBIN 32.2 pg (27.5-34.5); MEAN CORPUSCULAR HGB CONC 34.1 g/dL (33.2-36.2); MEAN CORPUSCULAR VOLUME 94.5 fL (81-97); MEAN PLATELET VOLUME 11.6 fL (7.4-10.4); MONOCYTES # (AUTO) 0.64 x10^3/uL (0.2-0.8); MONOCYTES % (AUTO) 8 % (2-9); NEUTROPHILS # (AUTO) 5.23 x10^3/uL (1.8-6.8); NEUTROPHILS % (AUTO) 63 % (42-75); PLATELET COUNT 170 x10^3/uL (130-400); RED BLOOD COUNT 5.05 x10^6/uL (4.38-5.82); RED CELL DISTRIBUTION WIDTH 16.5 % (9.4-14.8)
[2018-05-21 05:07] VITALS: BP 143/80
[2018-05-21 07:02] VITALS: BP 143/83
[2018-05-21] MEDS: METOPROLOL TARTRATE 50 MG TABLET PO SCH (08:52)
[2018-05-21] MEDS ORDERED: ASPIRIN 81 MG TABLET EC PO SCH (09:00)
[2018-05-21] MEDS ORDERED: SENNA/DOCUSATE TABLET PO SCH (09:00)
[2018-05-21] MEDS ORDERED: FUROSEMIDE 40 MG TABLET PO SCH (09:00)
[2018-05-21] MEDS ORDERED: ALLOPURINOL 300 MG TABLET PO SCH (09:00)
[2018-05-21] MEDS ORDERED: POTASSIUM CHLORIDE 20 MEQ TAB.ER.PRT PO SCH (09:00)
[2018-05-21] MEDS: IPRATROPIUM 0.5 MG/2.5 ML INHA HHN SCH ×2 (09:51→15:40)
[2018-05-21 13:08] VITALS: BP 131/89
[2018-05-21 15:05] VITALS: BP 142/79
== END 2018-05-21 16:04 | disposition home or self-care (01) | DRG 204 ==
LOC: ED 22:12 → EDIP 22:55 → 4NOR 05-21
PROVIDERS: ADMIT Internal Medicine; ATTEND Internal Medicine
DX: R04.2 Hemoptysis (principal); I50.32 Chronic diastolic (congestive) heart failure; I13.0 Hypertensive heart and chronic kidney disease with heart failure and stage 1 through stage 4 chronic kidney disease, or unspecified chronic kidney disease; D68.69 Other thrombophilia; E44.0 Moderate protein-calorie malnutrition; J98.11 Atelectasis; Z68.41 Body mass index [BMI] 40.0-44.9, adult; I25.10 Atherosclerotic heart disease of native coronary artery without angina pectoris; E66.01 Morbid (severe) obesity due to excess calories; N18.3 Chronic kidney disease, stage 3 (moderate); E03.9 Hypothyroidism, unspecified; F17.210 Nicotine dependence, cigarettes, uncomplicated; I48.91 Unspecified atrial fibrillation; M10.9 Gout, unspecified; E78.5 Hyperlipidemia, unspecified; Z79.01 Long term (current) use of anticoagulants; Z72.89 Other problems related to lifestyle; Z95.5 Presence of coronary angioplasty implant and graft; Z90.49 Acquired absence of other specified parts of digestive tract; Z79.899 Other long term (current) drug therapy
CPT/HCPCS: 36415; 99285; J7644; 71045; 71046; 80053; 84439; 84443; 85025; 85610; 85730; 94640

== ENCOUNTER 2018-08-12 23:07 | Inpatient (IN) | payer MEDICAID ==
[~2018-08-12] VITALS: Ht 180.3 cm; Wt 143.6 kg
[2018-08-13] MEDS ORDERED: DIPHENHYDRAMINE 50 MG/ML, 1ML IVPush ONE (00:30)
[2018-08-13] MEDS ORDERED: methylPREDNISolone SOD SUCC 125 MG/2 ML IVPush ONE (00:30)
[2018-08-13] MEDS ORDERED: methylPREDNISolone SOD SUCC 125 MG/2 ML ONE (00:36)
[2018-08-13] MEDS ORDERED: DIPHENHYDRAMINE 50 MG/ML, 1ML ONE (00:36)
[2018-08-13 00:41] LABS: BASOPHILS # (AUTO) 0.04 x10^3/uL (0-0.1); BASOPHILS % (AUTO) 1 % (0-1); EOSINOPHILS % (AUTO) 3 % (1-7); LYMPHOCYTES # (AUTO) 2.08 x10^3/uL (1-3.4); LYMPHOCYTES % (AUTO) 23 % (22-44); MD NO; MEAN CORPUSCULAR HEMOGLOBIN 30.5 pg (27.5-34.5); MEAN CORPUSCULAR HGB CONC 33.3 g/dL (33.2-36.2); MEAN CORPUSCULAR VOLUME 91.6 fL (81-97); MEAN PLATELET VOLUME 11.6 fL (7.4-10.4); MONOCYTES # (AUTO) 1.25 x10^3/uL (0.2-0.8); MONOCYTES % (AUTO) 14 % (2-9); NEUTROPHILS # (AUTO) 5.23 x10^3/uL (1.8-6.8); NEUTROPHILS % (AUTO) 59 % (42-75); PLATELET COUNT 164 x10^3/uL (130-400); RED BLOOD COUNT 4.36 x10^6/uL (4.38-5.82); RED CELL DISTRIBUTION WIDTH 15.4 % (9.4-14.8)
[2018-08-13 00:53] LABS: ALBUMIN 3.2 g/dL (3.4-5.0); ANION GAP 6 mmol/L (5-15); CALCIUM 8.3 mg/dL (8.5-10.1); CHLORIDE 112 mmol/L (98-107); CREATININE 1.49 mg/dL (0.7-1.3)
[2018-08-13] MEDS ORDERED: CLOP75TA PO (02:17)
[2018-08-13] MEDS ORDERED: IRBE1TAB37 PO (02:17)
[2018-08-13] MEDS ORDERED: AMLO10TA6 PO (02:17)
[2018-08-13] MEDS ORDERED: ALBU18HF INH (02:25)
[2018-08-13 02:43] LABS: TROPONIN I < 0.015 ng/mL (0.000-0.045)
[2018-08-13 03:17] VITALS: BP 158/98
[2018-08-13] MEDS ORDERED: ALBUTEROL/IPRATROPIUM 2.5MG/0.5MG, 3 ML NPPB PRN (05:30)
[2018-08-13] MEDS ORDERED: D5%-0.45NACL+KCL 20MEQ 1,000 ML IV SCH (05:38)
[2018-08-13] MEDS ORDERED: NITROGLYCERIN 0.4 MG BOTTLE (25 TABS) SL PRN ×2 (06:00)
[2018-08-13] MEDS: ENOXAPARIN 40 MG/0.4 ML SQ SCH ×2 (06:00→06:16)
[2018-08-13] MEDS ORDERED: ACETAMINOPHEN 325 MG TABLET PO PRN (06:00)
[2018-08-13] MEDS ORDERED: hydrALAzine 20 MG/ML, 1ML IVPush PRN (06:00)
[2018-08-13] MEDS ORDERED: ONDANSETRON 2MG/ML, 2ML IVPush PRN (06:00)
[2018-08-13] MEDS ORDERED: morphine SULFATE 10 MG/ML, 1ML IVPush PRN (06:00)
[2018-08-13] MEDS: methylPREDNISolone SOD SUCC 40 MG/ML IV SCH ×3 (06:15→22:17)
[2018-08-13] MEDS: CEFTRIAXONE PMX 1GM/50ML 50 ML IV SCH (06:15)
[2018-08-13] MEDS: DIPHENHYDRAMINE 25 MG CAPSULE PO SCH ×3 (06:16→17:27)
[2018-08-13] MEDS: FUROSEMIDE 40 MG/4 ML IV SCH ×3 (06:16→17:27)
[2018-08-13 06:40] LABS: TROPONIN I < 0.015 ng/mL (0.000-0.045)
[2018-08-13 06:48] VITALS: BP 140/75
[2018-08-13 07:19] LABS: RAPID INFLUENZA A Negative (Negative); RAPID INFLUENZA B Negative (Negative)
[2018-08-13] MEDS: ALBUTEROL/IPRATROPIUM 2.5MG/0.5MG, 3 ML NPPB SCH ×3 (07:20→22:30)
[2018-08-13] MEDS: POLYETHYLENE GLYCOL 17 GM PACKET PO SCH (08:35)
[2018-08-13] MEDS: FAMOTIDINE 20 MG TABLET PO SCH ×2 (08:37→22:16)
[2018-08-13] MEDS: POTASSIUM CHLORIDE 20 MEQ TAB.ER.PRT PO SCH (08:37)
[2018-08-13] MEDS: HYDROCHLOROTHIAZIDE 12.5 MG CAPSULE PO SCH (08:38)
[2018-08-13] MEDS: AZITHROMYCIN 500 MG TABLET PO SCH (08:38)
[2018-08-13] MEDS: CLOPIDOGREL 75 MG TABLET PO SCH (08:38)
[2018-08-13] MEDS: METOPROLOL TARTRATE 50 MG TABLET PO SCH ×2 (08:39→22:17)
[2018-08-13] MEDS: ASPIRIN 81 MG TABLET EC PO SCH (08:39)
[2018-08-13] MEDS: AMIODARONE 200 MG TABLET PO SCH ×2 (08:40→22:16)
[2018-08-13] MEDS ORDERED: IPRATROPIUM 0.5 MG/2.5 ML INHA HHN SCH (09:00)
[2018-08-13] MEDS ORDERED: IRBESARTAN 150 MG TABLET PO SCH (09:00)
[2018-08-13 11:19] LABS: TROPONIN I < 0.015 ng/mL (0.000-0.045)
[2018-08-13 13:07] VITALS: BP 127/73
[2018-08-13 19:42] VITALS: BP 139/86
[2018-08-13] MEDS ORDERED: ATORVASTATIN 40 MG TABLET PO SCH (21:00)
[2018-08-14] MEDS: DIPHENHYDRAMINE 25 MG CAPSULE PO SCH
[2018-08-14 00:51] VITALS: BP 148/90
[2018-08-14] MEDS: ALBUTEROL/IPRATROPIUM 2.5MG/0.5MG, 3 ML NPPB SCH ×3 (03:30→16:20)
[2018-08-14] MEDS: ENOXAPARIN 40 MG/0.4 ML SQ SCH (05:47)
[2018-08-14] MEDS: methylPREDNISolone SOD SUCC 40 MG/ML IV SCH (05:48)
[2018-08-14] MEDS: CEFTRIAXONE PMX 1GM/50ML 50 ML IV SCH (05:48)
[2018-08-14 06:16] LABS: ALANINE AMINOTRANSFERASE 25 U/L (12-78); ALBUMIN 3.2 g/dL (3.4-5.0); ANION GAP 11 mmol/L (5-15); CALCIUM 8.9 mg/dL (8.5-10.1); CHLORIDE 108 mmol/L (98-107); MEAN CORPUSCULAR HEMOGLOBIN 30.9 pg (27.5-34.5); MEAN CORPUSCULAR HGB CONC 34.2 g/dL (33.2-36.2); MEAN CORPUSCULAR VOLUME 90.4 fL (81-97); RED BLOOD COUNT 4.26 x10^6/uL (4.38-5.82); RED CELL DISTRIBUTION WIDTH 15.9 % (9.4-14.8)
[2018-08-14] MEDS: GUAIFENESIN/DM 200-20MG, 10ML UDC PO PRN ×2 (06:18→15:13)
[2018-08-14 06:19] LABS: ALKALINE PHOSPHATASE 104 U/L (45-117); BILIRUBIN,TOTAL 0.3 mg/dL (0.2-1.0); CREATININE 1.45 mg/dL (0.7-1.3); TOTAL PROTEIN 6.7 g/dL (6.4-8.2)
[2018-08-14 06:31] VITALS: BP 127/76
[2018-08-14 06:45] LABS: BASOPHILS # (AUTO) 0.02 x10^3/uL (0-0.1); BASOPHILS % (AUTO) 0 % (0-1); EOSINOPHILS % (AUTO) 0 % (1-7); LYMPHOCYTES # (AUTO) 1.12 x10^3/uL (1-3.4); LYMPHOCYTES % (AUTO) 9 % (22-44); MD SCAN; MEAN PLATELET VOLUME 12.1 fL (7.4-10.4); MONOCYTES # (AUTO) 0.94 x10^3/uL (0.2-0.8); MONOCYTES % (AUTO) 7 % (2-9); NEUTROPHILS % (AUTO) 84 % (42-75); PLATELET COUNT 221 x10^3/uL (130-400)
[2018-08-14] MEDS: POLYETHYLENE GLYCOL 17 GM PACKET PO SCH (09:00)
[2018-08-14] MEDS: POTASSIUM CHLORIDE 20 MEQ TAB.ER.PRT PO SCH (09:00)
[2018-08-14] MEDS: AZITHROMYCIN 500 MG TABLET PO SCH (10:27)
[2018-08-14] MEDS: AMIODARONE 200 MG TABLET PO SCH (10:27)
[2018-08-14] MEDS: FAMOTIDINE 20 MG TABLET PO SCH (10:27)
[2018-08-14] MEDS: HYDROCHLOROTHIAZIDE 12.5 MG CAPSULE PO SCH (10:27)
[2018-08-14] MEDS: ASPIRIN 81 MG TABLET EC PO SCH (10:27)
[2018-08-14] MEDS: CLOPIDOGREL 75 MG TABLET PO SCH (10:27)
[2018-08-14] MEDS: METOPROLOL TARTRATE 50 MG TABLET PO SCH (10:28)
[2018-08-14] MEDS: FUROSEMIDE 40 MG/4 ML IV SCH (10:28)
[2018-08-14] MEDS ORDERED: CLOP75TA52 PO (10:37)
[2018-08-14] MEDS ORDERED: APIX5TAB PO (10:37)
[2018-08-14 12:11] VITALS: BP 126/79
[2018-08-14] MEDS ORDERED: FUROSEMIDE 20 MG TABLET PO SCH (17:00)
[2018-08-14] MEDS ORDERED: CLON0.1T PO (17:10)
[2018-08-14] MEDS ORDERED: AMLO10TA6 PO (17:10)
[2018-08-14] MEDS ORDERED: POTA10TA11 PO (17:10)
[2018-08-14] MEDS ORDERED: FURO20TA3 PO (17:10)
[2018-08-14] MEDS ORDERED: TIOT18CA INH (17:10)
[2018-08-14] MEDS ORDERED: AMIO200T42 PO (17:10)
[2018-08-14] MEDS ORDERED: ALBU18HF INH (17:10)
[2018-08-14] MEDS ORDERED: METO25TA35 PO (17:10)
[2018-08-14] MEDS ORDERED: CLOP75TA PO (17:10)
[2018-08-14] MEDS ORDERED: HYDR12.53 PO (17:10)
[2018-08-14] MEDS ORDERED: AZIT500T5 PO (17:10)
[2018-08-14] MEDS ORDERED: PRED10TA PO (17:10)
[2018-08-14] MEDS ORDERED: ATOR20TA9 PO (17:10)
[2018-08-14] MEDS ORDERED: ASPI-515 PO (17:10)
== END 2018-08-14 17:45 | disposition home or self-care (01) | DRG 291 ==
LOC: ED 08-13 00:26 → 4WST 08-13 02:34
PROVIDERS: ADMIT Hospitalist; ATTEND Hospitalist
DX: I13.0 Hypertensive heart and chronic kidney disease with heart failure and stage 1 through stage 4 chronic kidney disease, or unspecified chronic kidney disease (principal); I50.43 Acute on chronic combined systolic (congestive) and diastolic (congestive) heart failure; D68.69 Other thrombophilia; E44.0 Moderate protein-calorie malnutrition; E87.0 Hyperosmolality and hypernatremia; J44.1 Chronic obstructive pulmonary disease with (acute) exacerbation; Z68.41 Body mass index [BMI] 40.0-44.9, adult; E66.2 Morbid (severe) obesity with alveolar hypoventilation; E78.5 Hyperlipidemia, unspecified; F17.210 Nicotine dependence, cigarettes, uncomplicated; I25.10 Atherosclerotic heart disease of native coronary artery without angina pectoris; I48.91 Unspecified atrial fibrillation; M10.9 Gout, unspecified; N18.9 Chronic kidney disease, unspecified; R13.10 Dysphagia, unspecified; T38.0X5A Adverse effect of glucocorticoids and synthetic analogues, initial encounter; T78.3XXA Angioneurotic edema, initial encounter; J38.4 Edema of larynx; Z90.49 Acquired absence of other specified parts of digestive tract; Y92.89 Other specified places as the place of occurrence of the external cause; Z59.0 Homelessness; Z95.5 Presence of coronary angioplasty implant and graft; Z91.19 Patient's noncompliance with other medical treatment and regimen
CPT/HCPCS: 36415; 36600; 70360; 87400; 99285; J7620; 71045; 80048; 80053; 82040; 82803; 83735; 83880; 84100; 84484; 85025; 87081; 87880; 93005; 94640; 96374; 96375; C8929; G0378; J0696; J1650; J1940; Q9957; J1200; J2920; J2930; J3480; Q0163

== ENCOUNTER 2018-08-19 21:19 | Inpatient (IN) | payer MEDICAID ==
[~2018-08-19] VITALS: Ht 180.3 cm; Wt 143.9 kg
[~2018-08-19 21:19] MED LIST changes: +ALBU18HF INH; +AMLO10TA6 PO; +AZIT500T5 PO; +CLOP75TA PO; +CLOP75TA52 PO; +HYDR12.53 PO; +IRBE1TAB37 PO; +POTA10TA11 PO
[2018-08-19] MEDS ORDERED: ACETAMINOPHEN 500 MG TABLET PO ONE (21:30)
[2018-08-19] MEDS ORDERED: ACETAMINOPHEN 500 MG TABLET ONE (21:37)
[2018-08-19] MEDS ORDERED: ALBUTEROL/IPRATROPIUM 2.5MG/0.5MG, 3 ML NPPB PRN (21:40)
[2018-08-19] MEDS ORDERED: ALBUTEROL SULFATE 2.5 MG/3 ML NPPB ONE (22:00)
[2018-08-19 22:02] LABS: BASOPHILS # (AUTO) 0.02 x10^3/uL (0-0.1); BASOPHILS % (AUTO) 0 % (0-1); EOSINOPHILS # (AUTO) 0.19 x10^3/uL (0-0.4); EOSINOPHILS % (AUTO) 3 % (1-7); LYMPHOCYTES % (AUTO) 19 % (22-44); MD NO; MEAN CORPUSCULAR HEMOGLOBIN 29.7 pg (27.5-34.5); MEAN CORPUSCULAR HGB CONC 33.1 g/dL (33.2-36.2); MEAN CORPUSCULAR VOLUME 89.9 fL (81-97); MEAN PLATELET VOLUME 11.1 fL (7.4-10.4); MONOCYTES # (AUTO) 0.65 x10^3/uL (0.2-0.8); MONOCYTES % (AUTO) 9 % (2-9); NEUTROPHILS # (AUTO) 4.81 x10^3/uL (1.8-6.8); NEUTROPHILS % (AUTO) 69 % (42-75); PLATELET COUNT 187 x10^3/uL (130-400); RED BLOOD COUNT 4.36 x10^6/uL (4.38-5.82); RED CELL DISTRIBUTION WIDTH 15.9 % (9.4-14.8)
[2018-08-19 22:13] LABS: ALANINE AMINOTRANSFERASE 50 U/L (12-78); ALBUMIN 2.9 g/dL (3.4-5.0); ANION GAP 10 mmol/L (5-15); CALCIUM 8.1 mg/dL (8.5-10.1); CHLORIDE 113 mmol/L (98-107); CREATININE 1.63 mg/dL (0.7-1.3)
[2018-08-19 22:18] LABS: ALKALINE PHOSPHATASE 84 U/L (45-117); BILIRUBIN,TOTAL 0.5 mg/dL (0.2-1.0); TOTAL PROTEIN 6.2 g/dL (6.4-8.2); TROPONIN I < 0.015 ng/mL (0.000-0.045)
[2018-08-19] MEDS ORDERED: AZITHROMYCIN 250 MG TABLET ONE (22:24)
[2018-08-19] MEDS ORDERED: CEFTRIAXONE PMX 1GM/50ML 50 ML ONE (22:24)
[2018-08-19] MEDS ORDERED: POTASSIUM CHLORIDE 20 MEQ PACKET ONE (22:24)
[2018-08-19] MEDS ORDERED: CEFTRIAXONE PMX 1GM/50ML 50 ML IV ONE (22:30)
[2018-08-19] MEDS ORDERED: POTASSIUM CHLORIDE 20 MEQ TAB.ER.PRT PO ONE ×2 (22:30→23:30)
[2018-08-19] MEDS ORDERED: AZITHROMYCIN 500 MG TABLET PO ONE (22:30)
[2018-08-19] MEDS ORDERED: ALBUTEROL SULFATE 2.5 MG/3 ML ONE (22:39)
[2018-08-19] MEDS ORDERED: morphine SULFATE 10 MG/ML, 1ML IVPush PRN (23:30)
[2018-08-19] MEDS ORDERED: PROMETHAZINE 25 MG/ML, 1ML IM PRN (23:30)
[2018-08-19] MEDS ORDERED: GABAPENTIN 300 MG CAPSULE PO PRN (23:30)
[2018-08-19] MEDS ORDERED: FUROSEMIDE 40 MG/4 ML IV ONE (23:30)
[2018-08-19] MEDS ORDERED: ONDANSETRON 2MG/ML, 2ML IVPush PRN (23:30)
[2018-08-19] MEDS ORDERED: hydrALAzine 20 MG/ML, 1ML IVPush PRN (23:30)
[2018-08-19] MEDS ORDERED: LABETALOL 5MG/ML, 20ML IVPush PRN (23:30)
[2018-08-19] MEDS ORDERED: ONDANSETRON ODT 4 MG PO PRN (23:30)
[2018-08-19] MEDS ORDERED: BISACODYL 10 MG SUPP PR PRN (23:30)
[2018-08-19] MEDS ORDERED: POLYETHYLENE GLYCOL 17 GM PACKET PO PRN (23:30)
[2018-08-19] MEDS ORDERED: DOCUSATE 100 MG CAPSULE PO PRN (23:30)
[2018-08-19 23:49] LABS: HEMOGLOBIN A1C 6.5 % (4.2-6.3)
[2018-08-19 23:50] LABS: FREE T4 (FREE THYROXINE) 1.25 ng/dL (0.76-1.46); THYROID STIMULATING HORMONE 2.11 mIU/L (0.358-3.740)
[2018-08-19 23:52] VITALS: BP 135/94
[2018-08-20] MEDS: methylPREDNISolone SOD SUCC 125 MG/2 ML IVPush SCH ×2 (00:22→06:16)
[2018-08-20] MEDS: HEPARIN 5,000 UNITS/ML, 1ML SQ SCH ×3 (00:23→16:00)
[2018-08-20] MEDS: DOXYCYCLINE 100MG TABLET PO SCH ×3 (00:40→20:41)
[2018-08-20] MEDS: ATORVASTATIN 40 MG TABLET PO SCH ×2 (00:49→20:41)
[2018-08-20] MEDS: AMIODARONE 200 MG TABLET PO SCH ×3 (00:50→20:41)
[2018-08-20 01:14] LABS: MICROSCOPIC NOT IND
[2018-08-20 01:16] LABS: CULTURE INDICATED? NO
[2018-08-20 03:12] VITALS: BP 164/99
[2018-08-20 04:51] LABS: BASOPHILS % (AUTO) 0 % (0-1); EOSINOPHILS # (AUTO) 0.02 x10^3/uL (0-0.4); EOSINOPHILS % (AUTO) 0 % (1-7); LYMPHOCYTES # (AUTO) 0.84 x10^3/uL (1-3.4); LYMPHOCYTES % (AUTO) 14 % (22-44); MD NO; MEAN CORPUSCULAR HEMOGLOBIN 30.9 pg (27.5-34.5); MEAN CORPUSCULAR HGB CONC 34.2 g/dL (33.2-36.2); MEAN CORPUSCULAR VOLUME 90.1 fL (81-97); MEAN PLATELET VOLUME 11.4 fL (7.4-10.4); MONOCYTES # (AUTO) 0.14 x10^3/uL (0.2-0.8); MONOCYTES % (AUTO) 2 % (2-9); NEUTROPHILS # (AUTO) 4.98 x10^3/uL (1.8-6.8); NEUTROPHILS % (AUTO) 83 % (42-75); PLATELET COUNT 186 x10^3/uL (130-400); RED BLOOD COUNT 4.62 x10^6/uL (4.38-5.82)
[2018-08-20 05:01] LABS: ALBUMIN 3.2 g/dL (3.4-5.0); ANION GAP 7 mmol/L (5-15); CALCIUM 8.5 mg/dL (8.5-10.1); CHLORIDE 111 mmol/L (98-107)
[2018-08-20 05:04] LABS: ALANINE AMINOTRANSFERASE 50 U/L (12-78); ALKALINE PHOSPHATASE 92 U/L (45-117); BILIRUBIN,TOTAL 0.6 mg/dL (0.2-1.0); CHOL/HDL RATIO 2.9; CHOLESTEROL, TOTAL 131 mg/dL (140-239); CREATININE 1.47 mg/dL (0.7-1.3); HDL CHOL % 34 % (26-37); HDL CHOLESTEROL (DIRECT) 45 mg/dL (40-60); LDL CHOLESTEROL,CALCULATED 70 mg/dL (54-169); LDL/HDL RATIO 1.6 (0.5-3.0); TOTAL PROTEIN 6.8 g/dL (6.4-8.2); TRIGLYCERIDES 80 mg/dL (50-200); VLDL CHOLESTEROL 16 mg/dL (0-25)
[2018-08-20] MEDS ORDERED: ALBUTEROL/IPRATROPIUM 2.5MG/0.5MG, 3 ML NPPB SCH (06:00)
[2018-08-20] MEDS: CARVEDILOL 6.25 MG TABLET PO SCH ×2 (06:17→16:40)
[2018-08-20 07:25] VITALS: BP 134/79
[2018-08-20] MEDS: CLOPIDOGREL 75 MG TABLET PO SCH (09:01)
[2018-08-20] MEDS: AMLODIPINE 10 MG TAB PO SCH (09:01)
[2018-08-20] MEDS: POTASSIUM CHLORIDE 20 MEQ TAB.ER.PRT PO SCH ×2 (09:02→16:40)
[2018-08-20] MEDS: FUROSEMIDE 20 MG/2 ML IV SCH ×2 (09:02→16:40)
[2018-08-20] MEDS ORDERED: ALBUTEROL/IPRATROPIUM 2.5MG/0.5MG, 3 ML NPPB PRN (09:30)
[2018-08-20] MEDS: ALBUTEROL/IPRATROPIUM 2.5MG/0.5MG, 3 ML NPPB SCH ×3 (11:12→19:11)
[2018-08-20 13:40] VITALS: BP 149/90
[2018-08-20] MEDS: methylPREDNISolone SOD SUCC 40 MG/ML IVPush SCH (16:40)
[2018-08-20 20:22] VITALS: BP 148/77
[2018-08-20] MEDS: ACETAMINOPHEN 325 MG TABLET PO PRN (20:43)
[2018-08-21] MEDS: methylPREDNISolone SOD SUCC 40 MG/ML IVPush SCH ×2 (01:21→08:45)
[2018-08-21] MEDS: ACETAMINOPHEN 325 MG TABLET PO PRN ×2 (01:21→05:54)
[2018-08-21 01:29] VITALS: BP 150/94
[2018-08-21 04:43] LABS: ANION GAP 7 mmol/L (5-15); CALCIUM 9.3 mg/dL (8.5-10.1); CHLORIDE 111 mmol/L (98-107)
[2018-08-21] MEDS: CARVEDILOL 6.25 MG TABLET PO SCH (05:54)
[2018-08-21 07:20] VITALS: BP 137/76
[2018-08-21] MEDS ORDERED: FUROSEMIDE 40 MG TABLET PO SCH (07:30)
[2018-08-21] MEDS: HEPARIN 5,000 UNITS/ML, 1ML SQ SCH ×2 (08:00)
[2018-08-21] MEDS ORDERED: GUAI5SYR PO (08:44)
[2018-08-21] MEDS ORDERED: LORA10TA45 PO (08:44)
[2018-08-21] MEDS: DOXYCYCLINE 100MG TABLET PO SCH (08:45)
[2018-08-21] MEDS: POTASSIUM CHLORIDE 20 MEQ TAB.ER.PRT PO SCH (08:45)
[2018-08-21] MEDS: AMIODARONE 200 MG TABLET PO SCH (08:45)
[2018-08-21] MEDS: AMLODIPINE 10 MG TAB PO SCH (08:45)
[2018-08-21] MEDS: CLOPIDOGREL 75 MG TABLET PO SCH (08:45)
== END 2018-08-21 10:49 | disposition home or self-care (01) | DRG 291 ==
LOC: ED 22:06 → 3NE 22:40 → 4EST 23:39 → DCLOUNGE 08-21 09:45
PROVIDERS: ADMIT Internal Medicine; ATTEND Internal Medicine
DX: I13.0 Hypertensive heart and chronic kidney disease with heart failure and stage 1 through stage 4 chronic kidney disease, or unspecified chronic kidney disease (principal); I50.33 Acute on chronic diastolic (congestive) heart failure; E43 Unspecified severe protein-calorie malnutrition; J44.1 Chronic obstructive pulmonary disease with (acute) exacerbation; J98.11 Atelectasis; Z68.42 Body mass index [BMI] 45.0-49.9, adult; J44.0 Chronic obstructive pulmonary disease with (acute) lower respiratory infection; D68.69 Other thrombophilia; M1A.9XX0 Chronic gout, unspecified, without tophus (tophi); N18.3 Chronic kidney disease, stage 3 (moderate); T78.3XXA Angioneurotic edema, initial encounter; F17.200 Nicotine dependence, unspecified, uncomplicated; E87.6 Hypokalemia; E78.5 Hyperlipidemia, unspecified; E66.01 Morbid (severe) obesity due to excess calories; M54.9 Dorsalgia, unspecified; I48.0 Paroxysmal atrial fibrillation; I25.10 Atherosclerotic heart disease of native coronary artery without angina pectoris; G47.33 Obstructive sleep apnea (adult) (pediatric); Z91.14 Patient's other noncompliance with medication regimen; Z91.19 Patient's noncompliance with other medical treatment and regimen; Z95.5 Presence of coronary angioplasty implant and graft; Z90.49 Acquired absence of other specified parts of digestive tract; Z88.8 Allergy status to other drugs, medicaments and biological substances; Z88.5 Allergy status to narcotic agent; Z91.013 Allergy to seafood
CPT/HCPCS: 36415; 99285; J7613; J7620; 71045; 80048; 80053; 80061; 81003; 83036; 83605; 83735; 83880; 84439; 84443; 84484; 85025; 87040; 93005; 94640; G0378; J0696; J1644; J1940; J2920; J2930

== ENCOUNTER 2018-08-26 09:13 | Emergency (ER) | payer MEDICAID ==
[~2018-08-26] VITALS: Ht 180.3 cm; Wt 141.0 kg
[~2018-08-26 09:13] MED LIST changes: +GUAI5SYR PO; +LORA10TA45 PO
[2018-08-26] MEDS ORDERED: ALBUTEROL/IPRATROPIUM 2.5MG/0.5MG, 3 ML ONE (09:28)
[2018-08-26] MEDS ORDERED: methylPREDNISolone SOD SUCC 125 MG/2 ML IVP ONE (09:30)
[2018-08-26] MEDS ORDERED: ALBUTEROL/IPRATROPIUM 2.5MG/0.5MG, 3 ML NPPB ONE (09:30)
[2018-08-26] MEDS ORDERED: methylPREDNISolone SOD SUCC 125 MG/2 ML ONE (09:44)
[2018-08-26 09:54] LABS: MEAN CORPUSCULAR HEMOGLOBIN 29.9 pg (27.5-34.5); MEAN CORPUSCULAR VOLUME 90.7 fL (81-97); MEAN PLATELET VOLUME 11.2 fL (7.4-10.4); PLATELET COUNT 177 x10^3/uL (130-400); RED BLOOD COUNT 4.54 x10^6/uL (4.38-5.82); RED CELL DISTRIBUTION WIDTH 16.1 % (9.4-14.8)
[2018-08-26 10:03] LABS: INTERNATIONAL NORMALIZED RATIO 1.05 (0.93-1.1); PROTHROMBIN TIME 11.1 Seconds (9.6-11.5)
[2018-08-26 10:04] LABS: ALBUMIN 3.2 g/dL (3.4-5.0); ANION GAP 5 mmol/L (5-15); CALCIUM 8.1 mg/dL (8.5-10.1); CHLORIDE 112 mmol/L (98-107)
[2018-08-26 10:10] LABS: ALANINE AMINOTRANSFERASE 39 U/L (12-78); ALKALINE PHOSPHATASE 80 U/L (45-117); BILIRUBIN,TOTAL 0.5 mg/dL (0.2-1.0); CREATININE 1.42 mg/dL (0.7-1.3); TOTAL PROTEIN 6.2 g/dL (6.4-8.2)
[2018-08-26 10:30] LABS: BASOPHILS # (AUTO) 0.02 x10^3/uL (0-0.1); BASOPHILS % (AUTO) 0 % (0-1); EOSINOPHILS # (AUTO) 0.01 x10^3/uL (0-0.4); EOSINOPHILS % (AUTO) 0 % (1-7); LYMPHOCYTES # (AUTO) 1.05 x10^3/uL (1-3.4); LYMPHOCYTES % (AUTO) 11 % (22-44); MD SCAN; MONOCYTES # (AUTO) 0.61 x10^3/uL (0.2-0.8); MONOCYTES % (AUTO) 6 % (2-9); NEUTROPHILS # (AUTO) 8.03 x10^3/uL (1.8-6.8); NEUTROPHILS % (AUTO) 83 % (42-75)
[2018-08-26 12:42] VITALS: BP 145/94
== END 2018-08-26 12:44 | disposition home or self-care (01) ==
LOC: ED 09:51
DX: J44.1 Chronic obstructive pulmonary disease with (acute) exacerbation (principal); I50.9 Heart failure, unspecified; E78.5 Hyperlipidemia, unspecified; I48.92 Unspecified atrial flutter; E66.9 Obesity, unspecified; I11.0 Hypertensive heart disease with heart failure; Z87.891 Personal history of nicotine dependence
CPT/HCPCS: 36415; 71045; 71250; 80053; 83880; 85025; 85610; 85730; 93005; 94640; 96374; 99284; J2930; J7620

== ENCOUNTER 2018-09-09 08:56 | Emergency (ER) | payer MEDICAID ==
[~2018-09-09] VITALS: Ht 180.3 cm; Wt 145.0 kg
[~2018-09-09 08:56] MED LIST changes: +ATOR20TA37 PO; -ATOR20TA9 PO; +HYDR12.517 PO; -HYDR12.53 PO
[2018-09-09] MEDS ORDERED: ALBUTEROL/IPRATROPIUM 2.5MG/0.5MG, 3 ML NPPB ONE (09:00)
[2018-09-09] MEDS ORDERED: ALBUTEROL/IPRATROPIUM 2.5MG/0.5MG, 3 ML ONE (09:02)
[2018-09-09 09:37] LABS: ALANINE AMINOTRANSFERASE 35 U/L (12-78); ANION GAP 8 mmol/L (5-15); CALCIUM 8.1 mg/dL (8.5-10.1); CHLORIDE 110 mmol/L (98-107); CREATININE 1.19 mg/dL (0.7-1.3)
[2018-09-09 09:40] LABS: MEAN CORPUSCULAR HEMOGLOBIN 30.2 pg (27.5-34.5); MEAN CORPUSCULAR HGB CONC 33.5 g/dL (33.2-36.2); MEAN CORPUSCULAR VOLUME 90.3 fL (81-97); RED BLOOD COUNT 4.58 x10^6/uL (4.38-5.82); RED CELL DISTRIBUTION WIDTH 17.6 % (9.4-14.8)
[2018-09-09 09:42] LABS: ALKALINE PHOSPHATASE 84 U/L (45-117); BILIRUBIN,TOTAL 0.9 mg/dL (0.2-1.0); TOTAL PROTEIN 6.2 g/dL (6.4-8.2); TROPONIN I < 0.015 ng/mL (0.000-0.045)
[2018-09-09 10:03] LABS: BASOPHILS # (AUTO) 0.05 x10^3/uL (0-0.1); BASOPHILS % (AUTO) 1 % (0-1); EOSINOPHILS # (AUTO) 0.27 x10^3/uL (0-0.4); EOSINOPHILS % (AUTO) 4 % (1-7); LYMPHOCYTES % (AUTO) 22 % (22-44); MD SCAN; MEAN PLATELET VOLUME 11.5 fL (7.4-10.4); MONOCYTES # (AUTO) 0.79 x10^3/uL (0.2-0.8); MONOCYTES % (AUTO) 10 % (2-9); NEUTROPHILS # (AUTO) 4.88 x10^3/uL (1.8-6.8); NEUTROPHILS % (AUTO) 63 % (42-75); PLATELET COUNT 142 x10^3/uL (130-400)
[2018-09-09 11:15] VITALS: BP 179/96
== END 2018-09-09 11:51 | disposition home or self-care (01) ==
LOC: ED 08:59
DX: J42 Unspecified chronic bronchitis (principal); E78.5 Hyperlipidemia, unspecified; I50.9 Heart failure, unspecified; I11.0 Hypertensive heart disease with heart failure
CPT/HCPCS: 36415; 71045; 80053; 83605; 83880; 84484; 85025; 93005; 99284; J7620

== ENCOUNTER 2018-10-12 12:28 | Inpatient (IN) | payer MEDICAID ==
[~2018-10-12] VITALS: Ht 182.9 cm; Wt 140.0 kg
[~2018-10-12 12:28] MED LIST changes: -CLON0.1T PO; +CLON0.1T22 PO
--- NOTE | 2018-10-12 12:33 | NUR ---
BIB EMS FROM [facility]. PT C/O LEFT SIDE NON RADIATING CP, INCREASES WITH PALPATIONS AND WHEN LYING PRONE. CHORONIC SOB ON HOME 02 2.5L AT NIGHT BUT RPTS INCREASED SOB OVER PAST WEEK. EKG COMPLETED, MONITORS IN PLACE. CALL LIGHT W/I REACH
[2018-10-12] MEDS ORDERED: METO-99 PO (12:53)
[2018-10-12] MEDS ORDERED: FURO40TA6 PO (12:53)
[2018-10-12] MEDS ORDERED: DOXA1TAB2 PO (12:55)
--- NOTE | 2018-10-12 12:57 | NUR ---
DR FRANKLIN AT BEDSIDE. ASSESSMENT REVIEWED, POC DISCUSSED. ORDERS REC'D. CALL LIGHT W/I REACH
[2018-10-12 13:38] LABS: MEAN CORPUSCULAR HEMOGLOBIN 30.3 pg (27.5-34.5); MEAN CORPUSCULAR HGB CONC 33.6 g/dL (33.2-36.2); MEAN CORPUSCULAR VOLUME 90.1 fL (81-97); MEAN PLATELET VOLUME 11.9 fL (7.4-10.4); PLATELET COUNT 163 x10^3/uL (130-400); RED BLOOD COUNT 4.34 x10^6/uL (4.38-5.82)
[2018-10-12 13:44] LABS: ANION GAP 7 mmol/L (5-15); CALCIUM 8.2 mg/dL (8.5-10.1); CHLORIDE 112 mmol/L (98-107); CREATININE 1.19 mg/dL (0.7-1.3)
[2018-10-12 13:48] LABS: TROPONIN I < 0.015 ng/mL (0.000-0.045)
[2018-10-12 13:56] LABS: BASOPHILS # (AUTO) 0.04 x10^3/uL (0-0.1); BASOPHILS % (AUTO) 1 % (0-1); EOSINOPHILS # (AUTO) 0.33 x10^3/uL (0-0.4); EOSINOPHILS % (AUTO) 5 % (1-7); LYMPHOCYTES % (AUTO) 25 % (22-44); MD SCAN; MONOCYTES # (AUTO) 0.78 x10^3/uL (0.2-0.8); MONOCYTES % (AUTO) 13 % (2-9); NEUTROPHILS # (AUTO) 3.46 x10^3/uL (1.8-6.8); NEUTROPHILS % (AUTO) 57 % (42-75)
[2018-10-12] MEDS ORDERED: FUROSEMIDE 40 MG/4 ML IV ONE (14:30)
[2018-10-12] MEDS ORDERED: POTASSIUM CHLORIDE 40 MEQ in SODIUM CHLORIDE 0.9% 500 ML IV ONE (14:30)
--- NOTE | 2018-10-12 15:06 | NUR ---
PT VERY UNCOMFORTABLE ON SHON, DUE TO HIS LARGE GIRTH HE IS DIFFICULTY FOR HIM TO BREATHE. PT OOB TO RECLINER CHAIR WITH EFFECT. CALL LIGHT W/I REACH, VSS.
[2018-10-12] MEDS ORDERED: FUROSEMIDE 40 MG/4 ML ONE (15:08)
[2018-10-12] MEDS ORDERED: ONDANSETRON ODT 4 MG PO PRN (15:30)
[2018-10-12] MEDS ORDERED: BISACODYL 10 MG SUPP PR PRN (15:30)
[2018-10-12] MEDS ORDERED: ALBUTEROL SULFATE 2.5 MG/3 ML NPPB PRN ×2 (15:30→18:00)
[2018-10-12] MEDS ORDERED: hydrALAzine 20 MG/ML, 1ML IVPush PRN (15:30)
[2018-10-12] MEDS ORDERED: NITROGLYCERIN 0.4 MG BOTTLE (25 TABS) SL PRN (15:30)
[2018-10-12] MEDS ORDERED: TRAZODONE 50MG TABLET PO PRN (15:30)
[2018-10-12] MEDS ORDERED: DOCUSATE 100 MG CAPSULE PO PRN (15:30)
[2018-10-12] MEDS ORDERED: ONDANSETRON 2MG/ML, 2ML IVPush PRN (15:30)
[2018-10-12] MEDS ORDERED: POLYETHYLENE GLYCOL 17 GM PACKET PO PRN (15:30)
[2018-10-12] MEDS ORDERED: PLEASE ENTER ALLERGIES MC SCH (16:00)
[2018-10-12 16:28] LABS: FREE T4 (FREE THYROXINE) 1.31 ng/dL (0.76-1.46); TROPONIN I < 0.015 ng/mL (0.000-0.045)
[2018-10-12] MEDS ORDERED: NICOTINE 21 MG/24 HR PATCH.TD24 ONE (16:50)
[2018-10-12] MEDS ORDERED: HEPARIN 5,000 UNITS/ML, 1ML ONE (16:50)
[2018-10-12] MEDS ORDERED: methylPREDNISolone SOD SUCC 125 MG/2 ML ONE (16:51)
[2018-10-12] MEDS ORDERED: CEFTRIAXONE PMX 1GM/50ML 50 ML ONE (16:51)
[2018-10-12] MEDS: HEPARIN 5,000 UNITS/ML, 1ML SQ SCH (16:59)
[2018-10-12] MEDS: CEFTRIAXONE PMX 1GM/50ML 50 ML IV SCH (16:59)
[2018-10-12] MEDS: NICOTINE 21 MG/24 HR PATCH.TD24 TD SCH (17:00)
[2018-10-12] MEDS: methylPREDNISolone SOD SUCC 125 MG/2 ML IVPush SCH ×2 (17:06→22:11)
--- NOTE | 2018-10-12 17:45 | NUR ---
CARDIAC DIET MEAL TRAY PROVIDED
[2018-10-12] MEDS ORDERED: ALBUTEROL SULFATE 2.5 MG/3 ML ONE (19:02)
[2018-10-12] MEDS: ALBUTEROL SULFATE 2.5 MG/3 ML NPPB SCH (19:44)
[2018-10-12 19:48] VITALS: BP 185/110
[2018-10-12] MEDS: FUROSEMIDE 40 MG TABLET PO SCH (20:02)
[2018-10-12] MEDS: ATORVASTATIN 20 MG TABLET PO SCH (20:02)
[2018-10-12] MEDS: DOXAZOSIN 1MG TABLET PO SCH (20:03)
[2018-10-12] MEDS: METOPROLOL TARTRATE 100 MG TABLET PO SCH (20:04)
[2018-10-12] MEDS: ACETAMINOPHEN 325 MG TABLET PO PRN (20:11)
[2018-10-12] MEDS: NYSTATIN 500,000 UNITS/5 ML UDC PO SCH (20:48)
[2018-10-12] MEDS ORDERED: FUROSEMIDE 40 MG TABLET PO ONE (21:00)
[2018-10-12] MEDS ORDERED: BUDESONIDE 0.5 MG/2 ML INHA INH SCH (21:00)
[2018-10-12 21:49] LABS: TROPONIN I < 0.015 ng/mL (0.000-0.045)
[2018-10-12 22:11] VITALS: BP 125/81
[2018-10-12] MEDS: GUAIFENESIN/COD200MG-20MG/10ML LIQUID PO PRN (22:11)
[2018-10-13 00:42] VITALS: BP 159/75
[2018-10-13] MEDS ORDERED: CLON0.5T11 PO (01:02)
[2018-10-13] MEDS: HEPARIN 5,000 UNITS/ML, 1ML SQ SCH ×4 (01:38→23:52)
[2018-10-13] MEDS: ACETAMINOPHEN 325 MG TABLET PO PRN (02:36)
[2018-10-13] MEDS: CEFTRIAXONE PMX 1GM/50ML 50 ML IV SCH ×2 (05:23→17:13)
[2018-10-13] MEDS: methylPREDNISolone SOD SUCC 125 MG/2 ML IVPush SCH ×4 (05:24→23:07)
[2018-10-13] MEDS: NYSTATIN 500,000 UNITS/5 ML UDC PO SCH ×4 (05:28→20:13)
[2018-10-13 05:29] LABS: BASOPHILS # (AUTO) 0.03 x10^3/uL (0-0.1); BASOPHILS % (AUTO) 1 % (0-1); EOSINOPHILS # (AUTO) 0.01 x10^3/uL (0-0.4); EOSINOPHILS % (AUTO) 0 % (1-7); LYMPHOCYTES # (AUTO) 0.67 x10^3/uL (1-3.4); LYMPHOCYTES % (AUTO) 11 % (22-44); MD NO; MEAN CORPUSCULAR HEMOGLOBIN 30.4 pg (27.5-34.5); MEAN CORPUSCULAR HGB CONC 33.4 g/dL (33.2-36.2); MEAN CORPUSCULAR VOLUME 91.1 fL (81-97); MEAN PLATELET VOLUME 12.3 fL (7.4-10.4); MONOCYTES # (AUTO) 0.03 x10^3/uL (0.2-0.8); MONOCYTES % (AUTO) 1 % (2-9); NEUTROPHILS # (AUTO) 5.31 x10^3/uL (1.8-6.8); NEUTROPHILS % (AUTO) 88 % (42-75); PLATELET COUNT 177 x10^3/uL (130-400); RED CELL DISTRIBUTION WIDTH 16.8 % (9.4-14.8)
[2018-10-13 05:34] LABS: ANION GAP 6 mmol/L (5-15); CHLORIDE 111 mmol/L (98-107); CREATININE 1.39 mg/dL (0.7-1.3)
[2018-10-13 07:19] VITALS: BP 155/103
[2018-10-13] MEDS: PANTOPROZOLE 40MG TABLET PO SCH (07:44)
[2018-10-13] MEDS: CETIRIZINE 10 MG TABLET PO SCH (07:45)
[2018-10-13] MEDS: METOPROLOL TARTRATE 100 MG TABLET PO SCH ×2 (07:45→20:12)
[2018-10-13] MEDS: FUROSEMIDE 40 MG TABLET PO SCH ×2 (07:47→20:13)
[2018-10-13] MEDS: CLOPIDOGREL 75 MG TABLET PO SCH (07:49)
[2018-10-13] MEDS: AMLODIPINE 10 MG TAB PO SCH (07:49)
[2018-10-13] MEDS: ALBUTEROL SULFATE 2.5 MG/3 ML NPPB SCH ×2 (09:00→21:15)
[2018-10-13 12:00] VITALS: BP 125/75
[2018-10-13] MEDS: NICOTINE 21 MG/24 HR PATCH.TD24 TD SCH (15:24)
[2018-10-13] MEDS: GUAIFENESIN/COD200MG-20MG/10ML LIQUID PO PRN (15:34)
[2018-10-13 19:36] VITALS: BP 136/87
[2018-10-13 20:11] VITALS: BP 140/92
[2018-10-13] MEDS: ATORVASTATIN 20 MG TABLET PO SCH (20:12)
[2018-10-13] MEDS: DOXAZOSIN 1MG TABLET PO SCH (20:13)
[2018-10-14 00:41] VITALS: BP 144/88
[2018-10-14 04:19] VITALS: BP 135/75
[2018-10-14] MEDS: ACETAMINOPHEN 325 MG TABLET PO PRN (04:20)
[2018-10-14] MEDS: NYSTATIN 500,000 UNITS/5 ML UDC PO SCH ×2 (05:10→10:54)
[2018-10-14] MEDS: methylPREDNISolone SOD SUCC 125 MG/2 ML IVPush SCH ×2 (05:10→10:55)
[2018-10-14] MEDS: CEFTRIAXONE PMX 1GM/50ML 50 ML IV SCH (05:11)
[2018-10-14 05:32] LABS: BASOPHILS # (AUTO) 0.08 x10^3/uL (0-0.1); BASOPHILS % (AUTO) 1 % (0-1); EOSINOPHILS % (AUTO) 0 % (1-7); LYMPHOCYTES # (AUTO) 0.89 x10^3/uL (1-3.4); LYMPHOCYTES % (AUTO) 7 % (22-44); MD NO; MEAN CORPUSCULAR HEMOGLOBIN 30.4 pg (27.5-34.5); MEAN CORPUSCULAR HGB CONC 33.6 g/dL (33.2-36.2); MEAN CORPUSCULAR VOLUME 90.6 fL (81-97); MONOCYTES # (AUTO) 0.41 x10^3/uL (0.2-0.8); MONOCYTES % (AUTO) 3 % (2-9); NEUTROPHILS # (AUTO) 12.27 x10^3/uL (1.8-6.8); NEUTROPHILS % (AUTO) 90 % (42-75); PLATELET COUNT 189 x10^3/uL (130-400); RED BLOOD COUNT 4.52 x10^6/uL (4.38-5.82)
[2018-10-14 05:43] LABS: ANION GAP 10 mmol/L (5-15); CALCIUM 9.1 mg/dL (8.5-10.1); CHLORIDE 111 mmol/L (98-107)
[2018-10-14 07:56] VITALS: BP 153/88
[2018-10-14] MEDS: CLOPIDOGREL 75 MG TABLET PO SCH (08:04)
[2018-10-14] MEDS: CETIRIZINE 10 MG TABLET PO SCH (08:04)
[2018-10-14] MEDS: METOPROLOL TARTRATE 100 MG TABLET PO SCH (08:04)
[2018-10-14] MEDS: AMLODIPINE 10 MG TAB PO SCH (08:04)
[2018-10-14] MEDS: HEPARIN 5,000 UNITS/ML, 1ML SQ SCH (08:05)
[2018-10-14] MEDS: PANTOPROZOLE 40MG TABLET PO SCH (08:09)
[2018-10-14] MEDS: FUROSEMIDE 40 MG TABLET PO SCH (09:00)
[2018-10-14] MEDS ORDERED: PANT40TA5 PO (10:58)
[2018-10-14] MEDS ORDERED: METH4TAB2 PO (10:58)
[2018-10-14] MEDS: GUAIFENESIN/COD200MG-20MG/10ML LIQUID PO PRN (11:04)
[2018-10-14] MEDS: ALBUTEROL SULFATE 2.5 MG/3 ML NPPB SCH (11:10)
== END 2018-10-14 14:59 | disposition home or self-care (01) | DRG 291 ==
LOC: ED 14:11 → EDIP 14:12 → 5SO 19:37
PROVIDERS: ADMIT Hospitalist; ATTEND Hospitalist
PROC: 5A09357 Assistance with Respiratory Ventilation, Less than 24 Consecutive Hours, Continuous Positive Airway Pressure (ICD-10-PCS; principal; 2018-10-13)
DX: I13.0 Hypertensive heart and chronic kidney disease with heart failure and stage 1 through stage 4 chronic kidney disease, or unspecified chronic kidney disease (principal); I50.33 Acute on chronic diastolic (congestive) heart failure; J81.0 Acute pulmonary edema; J44.1 Chronic obstructive pulmonary disease with (acute) exacerbation; Z68.41 Body mass index [BMI] 40.0-44.9, adult; Z99.81 Dependence on supplemental oxygen; Z91.19 Patient's noncompliance with other medical treatment and regimen; F17.200 Nicotine dependence, unspecified, uncomplicated; T78.3XXA Angioneurotic edema, initial encounter; M10.9 Gout, unspecified; I48.0 Paroxysmal atrial fibrillation; I25.10 Atherosclerotic heart disease of native coronary artery without angina pectoris; N18.9 Chronic kidney disease, unspecified; G47.33 Obstructive sleep apnea (adult) (pediatric); E78.5 Hyperlipidemia, unspecified; E66.9 Obesity, unspecified; Z95.5 Presence of coronary angioplasty implant and graft; Z90.49 Acquired absence of other specified parts of digestive tract; Z98.49 Cataract extraction status, unspecified eye; Z87.01 Personal history of pneumonia (recurrent)
CPT/HCPCS: 36415; 99285; J7613; 71045; 80048; 82040; 83605; 83880; 84439; 84443; 84484; 85025; 85651; 87040; 87070; 87077; 87205; 93005; 93306; 94640; 94660; 96365; 96366; 96368; 96372; 96375; G0378; J0696; J1644; J1940; J3480; J2930; J7040

== ENCOUNTER 2018-10-18 18:44 | Emergency (ER) | payer MEDICAID ==
[~2018-10-18 18:44] MED LIST changes: -AMLO10TA6 PO; +AMLO10TA8 PO; +CLON0.5T11 PO; +DOXA1TAB2 PO; +METH4TAB2 PO; +PANT40TA5 PO
--- NOTE | 2018-10-18 19:05 | NUR ---
REPORT FROM KEMI TAVARES.
--- NOTE | 2018-10-18 19:10 | NUR ---
PT AWAITING CT.
--- NOTE | 2018-10-18 19:14 | NUR ---
PT TO CT VIA [facility].
--- NOTE | 2018-10-18 19:17 | NUR ---
report to CHAITANYA Villegas, Patient ADEN WHELAN from [facility], placed on monitoring coordinator and pulse ox upon intial contact, MD Bernal to bedside at approx 1850, patient off to CT now via gurney, labs and xray have been to bedside prior to CT. patient pleasant and conversant, reports L arm pain/tingling, posterior neck pain, and chronic chest pain.
[2018-10-18 19:20] LABS: INTERNATIONAL NORMALIZED RATIO 1.02 (0.93-1.1); PROTHROMBIN TIME 10.8 Seconds (9.6-11.5)
[2018-10-18 19:22] LABS: ALBUMIN 3.2 g/dL (3.4-5.0); ANION GAP 6 mmol/L (5-15); CALCIUM 8.2 mg/dL (8.5-10.1); CHLORIDE 112 mmol/L (98-107); CREATININE 1.34 mg/dL (0.7-1.3)
[2018-10-18 19:24] LABS: BASOPHILS # (AUTO) 0.06 x10^3/uL (0-0.1); BASOPHILS % (AUTO) 1 % (0-1); EOSINOPHILS # (AUTO) 0.35 x10^3/uL (0-0.4); EOSINOPHILS % (AUTO) 5 % (1-7); LYMPHOCYTES # (AUTO) 1.85 x10^3/uL (1-3.4); LYMPHOCYTES % (AUTO) 26 % (22-44); MD NO; MEAN CORPUSCULAR HEMOGLOBIN 30.3 pg (27.5-34.5); MEAN CORPUSCULAR HGB CONC 33.5 g/dL (33.2-36.2); MEAN CORPUSCULAR VOLUME 90.4 fL (81-97); MEAN PLATELET VOLUME 11.6 fL (7.4-10.4); MONOCYTES # (AUTO) 0.41 x10^3/uL (0.2-0.8); MONOCYTES % (AUTO) 6 % (2-9); NEUTROPHILS # (AUTO) 4.52 x10^3/uL (1.8-6.8); NEUTROPHILS % (AUTO) 63 % (42-75); PLATELET COUNT 175 x10^3/uL (130-400); RED BLOOD COUNT 4.78 x10^6/uL (4.38-5.82)
[2018-10-18 19:26] LABS: TROPONIN I < 0.015 ng/mL (0.000-0.045)
--- NOTE | 2018-10-18 19:45 | NUR ---
PT RESTING IN BED, MONITOR IN PLACE. NO ACUTE DISTRESS NOTED.
--- NOTE | 2018-10-18 20:05 | NUR ---
MD TO BEDSIDE FOR PT UPDATE AND D/C.
[2018-10-18 20:15] VITALS: BP 136/90
--- NOTE | 2018-10-18 20:15 | NUR ---
Patient given discharge instructions and they have confirmed that they understand the instructions. Patient pushed in wheelchair to discharge. Pt left with all personal belongings, discharge paperwork, prescription, and taxi voucher.
== END 2018-10-18 20:17 | disposition home or self-care (01) ==
LOC: ED 19:37
DX: M54.12 Radiculopathy, cervical region (principal); R05 Cough; R07.9 Chest pain, unspecified; F17.200 Nicotine dependence, unspecified, uncomplicated; I11.0 Hypertensive heart disease with heart failure; I50.9 Heart failure, unspecified; J44.9 Chronic obstructive pulmonary disease, unspecified; E66.9 Obesity, unspecified; I48.92 Unspecified atrial flutter; Z72.9 Problem related to lifestyle, unspecified
CPT/HCPCS: 36415; 71045; 72125; 80048; 82040; 83880; 84484; 85025; 85610; 85730; 93005; 99284

== ENCOUNTER 2018-10-30 19:09 | Emergency (ER) | payer MEDICAID ==
[~2018-10-30] VITALS: Ht 185.4 cm; Wt 142.2 kg
[2018-10-30 19:22] VITALS: BP 182/112
--- NOTE | 2018-10-30 20:20 | NUR ---
pt ambulated to room from lobby with steady gait.
--- NOTE | 2018-10-30 20:51 | NUR ---
pt resting in [facility] at this time;
== END 2018-10-30 22:14 | disposition home or self-care (01) ==
LOC: ED 21:39
DX: S46.312A Strain of muscle, fascia and tendon of triceps, left arm, initial encounter (principal); I50.9 Heart failure, unspecified; E78.5 Hyperlipidemia, unspecified; I11.0 Hypertensive heart disease with heart failure; J44.9 Chronic obstructive pulmonary disease, unspecified; I48.92 Unspecified atrial flutter; N28.9 Disorder of kidney and ureter, unspecified; X58.XXXA Exposure to other specified factors, initial encounter; Y93.89 Activity, other specified; Y92.89 Other specified places as the place of occurrence of the external cause; Y99.8 Other external cause status
CPT/HCPCS: 93005; 99283

== ENCOUNTER 2018-11-16 12:05 | Emergency (ER) | payer MEDICAID ==
[~2018-11-16] VITALS: Ht 154.9 cm; Wt 136.8 kg
[2018-11-16 12:20] VITALS: BP 167/86
--- NOTE | 2018-11-16 12:25 | NUR ---
pt bib [facility] pt with left arm numbness since today. pt moving left arm and has good equal bilateral info print press operator. assessment completed. awaiting md. call light in reach.
--- NOTE | 2018-11-16 13:30 | NUR ---
PT RESTING IN BED. US AT BEDSIDE
--- NOTE | 2018-11-16 14:07 | NUR ---
Report from Gayle TAVARES.
--- NOTE | 2018-11-16 14:09 | NUR ---
REPORT GIVEN TO MEGAN TAVARES
== END 2018-11-16 15:18 | disposition home or self-care (01) ==
LOC: ED 12:54
DX: M79.632 Pain in left forearm (principal); E78.5 Hyperlipidemia, unspecified; I11.0 Hypertensive heart disease with heart failure; I50.9 Heart failure, unspecified; J44.9 Chronic obstructive pulmonary disease, unspecified; Z72.9 Problem related to lifestyle, unspecified
CPT/HCPCS: 99284

== ENCOUNTER 2018-12-15 04:18 | Inpatient (IN) | payer MEDICAID ==
[~2018-12-15] VITALS: Ht 185.4 cm; Wt 136.0 kg
--- NOTE | 2018-12-15 04:48 | NUR ---
YASIR MAX AT BEDSIDE EVALUATING PT
[2018-12-15] MEDS ORDERED: SODIUM CHLORIDE FLUSH 10ML SYR IVF ONE (05:00)
--- NOTE | 2018-12-15 05:02 | NUR ---
DURING ASSESSMENT BY THE PA, THE PT REPORTS INCREASING SOB WITH EXERTION. PT WILL RECEIVE A CARDIAC WORKOUT
[2018-12-15 05:23] LABS: BASOPHILS # (AUTO) 0.06 x10^3/uL (0-0.1); BASOPHILS % (AUTO) 1 % (0-1); EOSINOPHILS % (AUTO) 4 % (1-7); LYMPHOCYTES # (AUTO) 1.72 x10^3/uL (1-3.4); LYMPHOCYTES % (AUTO) 22 % (22-44); MD NO; MEAN CORPUSCULAR HGB CONC 33.4 g/dL (33.2-36.2); MEAN CORPUSCULAR VOLUME 86.9 fL (81-97); MEAN PLATELET VOLUME 11.2 fL (7.4-10.4); MONOCYTES # (AUTO) 0.77 x10^3/uL (0.2-0.8); MONOCYTES % (AUTO) 10 % (2-9); NEUTROPHILS # (AUTO) 4.96 x10^3/uL (1.8-6.8); NEUTROPHILS % (AUTO) 64 % (42-75); PLATELET COUNT 162 x10^3/uL (130-400); RED BLOOD COUNT 4.56 x10^6/uL (4.38-5.82); RED CELL DISTRIBUTION WIDTH 16.4 % (9.4-14.8)
[2018-12-15] MEDS ORDERED: FAMOTIDINE 20 MG TABLET ONE (05:23)
[2018-12-15] MEDS ORDERED: DIPHENHYDRAMINE 50 MG CAPSULE ONE (05:23)
--- NOTE | 2018-12-15 05:26 | NUR ---
PT MEDICATED PER EMAR. 5 RIGHTS ADDRESSED. PT WAS SLEEPING UPON ENTERING ROOM, AROUSES TO VERBAL STIMULI. SINUS TACH ON MONITOR AT 110, SPO2 93% ON RA.
[2018-12-15 05:30] LABS: ALANINE AMINOTRANSFERASE 33 U/L (12-78); ALBUMIN 2.9 g/dL (3.4-5.0); ANION GAP 7 mmol/L (5-15); CALCIUM 8.1 mg/dL (8.5-10.1); CHLORIDE 117 mmol/L (98-107)
[2018-12-15] MEDS ORDERED: FAMOTIDINE 20 MG TABLET PO ONE (05:30)
[2018-12-15] MEDS ORDERED: DIPHENHYDRAMINE 25 MG CAPSULE PO ONE (05:30)
[2018-12-15 05:34] LABS: ALKALINE PHOSPHATASE 76 U/L (45-117); BILIRUBIN,TOTAL 0.5 mg/dL (0.2-1.0); TOTAL PROTEIN 6.5 g/dL (6.4-8.2); TROPONIN I < 0.015 ng/mL (0.000-0.045)
--- NOTE | 2018-12-15 05:56 | NUR ---
IV ESTABLISHED IN RIGHT AC. PT TO BE ADMITTED PER DR. FORMAN
[2018-12-15] MEDS ORDERED: FUROSEMIDE 40 MG/4 ML IV ONE (06:00)
[2018-12-15] MEDS ORDERED: FUROSEMIDE 40 MG/4 ML ONE (06:26)
[2018-12-15] MEDS ORDERED: SODIUM CHLORIDE FLUSH 10ML SYR IVF PRN (06:30)
--- NOTE | 2018-12-15 06:32 | NUR ---
PT MEDICATED PER EMAR. 5 RIGHTS ADDRESSED.
--- NOTE | 2018-12-15 07:00 | NUR ---
REPORT TO CHAITANYA ALDANA
--- NOTE | 2018-12-15 07:09 | NUR ---
RECEIVED REPORT FROM JUSTINE TAVARES. PT RESTING IN BED.
--- NOTE | 2018-12-15 07:38 | NUR ---
PT CONTINUES TO PULL OFF HIS OXYGEN AND DESTROY THE BED, WITH SHEETS ON FLOOR.
--- NOTE | 2018-12-15 08:30 | NUR ---
PT GIVEN CARDIAC DIET TRAY.
--- NOTE | 2018-12-15 09:15 | NUR ---
PT SITTING AT EDGE OF BED. EATING AND USING URINAL. PT EASILY AWOKEN WITH TOUCH. SPOKE WITH RT ABOUT PT BEING ON BIPAP. PT IS TOLERATING OXGEN AT 2 LITERS NC. AT 95%. PT INS NO RESP DISTRESS.
--- NOTE | 2018-12-15 09:28 | NUR ---
education given on the beenfits of optiflow and abg blood draw. Pt agreed to the plan of care as discussed by Dr. Harkins. RT notified. technical sales consultant at bs.
--- NOTE | 2018-12-15 09:38 | NUR ---
LAB INTO DRAW ABGS.
--- NOTE | 2018-12-15 09:48 | NUR ---
3RD PET CARE ATTENDANT ATTEMPT FOR ABG.
--- NOTE | 2018-12-15 10:21 | NUR ---
PT ON HIGH FLOW OPTI-FLOW AT 40%. PT PULLING OFF CANNULA AND INSTRUCTED TO KEEP IT OFF
--- NOTE | 2018-12-15 10:21 | NUR ---
Yoon hernandez in ED - 12/15/18 at 1041 by BONNIE HI FLOW NASAL CANNULA ON PT. PT TRYING TO TAKE OXYGEN OFF.
--- NOTE | 2018-12-15 10:40 | NUR ---
ABG RESULTED BACK. PER DR. VILCHIS- PT WILL BE OFF OF OPTI-FLOW AND WILL STILL GO TO ICU DUE TO LIPS SWELLING AND ANGIOEDEMA
--- NOTE | 2018-12-15 11:53 | NUR ---
Break RN note: Pt sitting on edge of gurney, drowsy but arousable. Pt states he wants to sit up instead of lie down. Pt denies other needs.
[2018-12-15] MEDS ORDERED: DILTIAZEM 5 MG/ML, 5ML IVPush PRN (12:00)
[2018-12-15] MEDS ORDERED: ONDANSETRON 2MG/ML, 2ML IVPush PRN (12:00)
[2018-12-15] MEDS: ENOXAPARIN 40 MG/0.4 ML SQ SCH ×2 (12:00→12:12)
[2018-12-15] MEDS ORDERED: MAGNESIUM SULFATE PMX 2GM/50ML 50 ML IV ONE (12:00)
[2018-12-15] MEDS ORDERED: ENOXAPARIN 40 MG/0.4 ML ONE (12:07)
[2018-12-15] MEDS ORDERED: methylPREDNISolone SOD SUCC 125 MG/2 ML ONE (12:07)
[2018-12-15] MEDS: methylPREDNISolone SOD SUCC 125 MG/2 ML IVPush SCH ×2 (12:12→18:25)
[2018-12-15 12:28] LABS: TROPONIN I < 0.015 ng/mL (0.000-0.045)
--- NOTE | 2018-12-15 13:00 | NUR ---
urine collected and sent to lab.
[2018-12-15 13:07] LABS: MICROSCOPIC NOT IND
[2018-12-15 13:08] LABS: CULTURE INDICATED? NO
[2018-12-15 13:21] LABS: AMPHETAMINE SCREEN, URINE Negative (Negative); BARBITURATE SCREEN, URINE Negative (Negative); BENZODIAZEPINE SCREEN, URINE Negative (Negative); CANNABINOID SCREEN, URINE Negative (Negative); COCAINE SCREEN, URINE Negative (Negative); METHADONE SCREEN, URINE Negative (Negative); OPIATE SCREEN, URINE Negative (Negative)
--- NOTE | 2018-12-15 14:07 | NUR ---
pt resting in bed. awaiting ccu bed.
--- NOTE | 2018-12-15 15:19 | NUR ---
received bed and will call report
--- NOTE | 2018-12-15 15:28 | NUR ---
report given to florentino martins icu- pt ready for transfer.
[2018-12-15 18:54] LABS: TROPONIN I < 0.015 ng/mL (0.000-0.045)
[2018-12-15 19:32] VITALS: BP 128/87
[2018-12-15] MEDS ORDERED: FAMOTIDINE 20 MG/2 ML IVPush SCH (21:00)
[2018-12-16] MEDS: methylPREDNISolone SOD SUCC 125 MG/2 ML IVPush SCH ×2 (00:23→05:36)
[2018-12-16 04:30] LABS: BASOPHILS # (AUTO) 0.03 x10^3/uL (0-0.1); BASOPHILS % (AUTO) 1 % (0-1); EOSINOPHILS % (AUTO) 0 % (1-7); LYMPHOCYTES # (AUTO) 1.04 x10^3/uL (1-3.4); LYMPHOCYTES % (AUTO) 14 % (22-44); MD NO; MEAN CORPUSCULAR HEMOGLOBIN 28.1 pg (27.5-34.5); MEAN CORPUSCULAR HGB CONC 32.5 g/dL (33.2-36.2); MEAN CORPUSCULAR VOLUME 86.3 fL (81-97); MEAN PLATELET VOLUME 11.8 fL (7.4-10.4); MONOCYTES # (AUTO) 0.08 x10^3/uL (0.2-0.8); MONOCYTES % (AUTO) 1 % (2-9); NEUTROPHILS # (AUTO) 6.23 x10^3/uL (1.8-6.8); NEUTROPHILS % (AUTO) 84 % (42-75); PLATELET COUNT 173 x10^3/uL (130-400); RED BLOOD COUNT 4.74 x10^6/uL (4.38-5.82); RED CELL DISTRIBUTION WIDTH 16.3 % (9.4-14.8)
[2018-12-16 04:39] LABS: ALANINE AMINOTRANSFERASE 28 U/L (12-78); ALBUMIN 2.9 g/dL (3.4-5.0); ANION GAP 8 mmol/L (5-15); CALCIUM 8.5 mg/dL (8.5-10.1); CHLORIDE 114 mmol/L (98-107); CREATININE 1.25 mg/dL (0.7-1.3)
[2018-12-16 04:41] LABS: ALKALINE PHOSPHATASE 74 U/L (45-117); BILIRUBIN,TOTAL 0.5 mg/dL (0.2-1.0); TOTAL PROTEIN 6.6 g/dL (6.4-8.2)
[2018-12-16] MEDS: DILTIAZEM 125 MG in SODIUM CHLORIDE 0.9% 100 ML IV SCH (08:17)
[2018-12-16] MEDS ORDERED: ASPIRIN 325 MG TABLET ONE (08:40)
[2018-12-16] MEDS: METOPROLOL TARTRATE 50 MG TABLET PO SCH ×2 (08:50→20:36)
[2018-12-16] MEDS ORDERED: ASPIRIN 325 MG TABLET PO SCH (09:00)
[2018-12-16] MEDS ORDERED: ASPIRIN 325 MG TABLET PO ONE (09:30)
[2018-12-16] MEDS: ENOXAPARIN 40 MG/0.4 ML SQ SCH (13:56)
[2018-12-16] MEDS: methylPREDNISolone SOD SUCC 40 MG/ML IVPush SCH ×3 (13:56→23:35)
[2018-12-16 16:18] VITALS: BP 137/87
[2018-12-16] MEDS ORDERED: ACETAMINOPHEN 325 MG TABLET PO PRN (20:00)
[2018-12-16 20:32] VITALS: BP 129/77
[2018-12-16] MEDS: ALBUTEROL SULFATE 2.5 MG/3 ML NPPB PRN (23:49)
[2018-12-17 01:37] VITALS: BP 116/76
[2018-12-17] MEDS: methylPREDNISolone SOD SUCC 40 MG/ML IVPush SCH ×4 (05:02→23:12)
[2018-12-17] MEDS: ASPIRIN 325 MG TABLET PO SCH (05:02)
[2018-12-17] MEDS: DILTIAZEM 125 MG in SODIUM CHLORIDE 0.9% 100 ML IV SCH (05:03)
[2018-12-17 06:34] LABS: MEAN CORPUSCULAR HEMOGLOBIN 28.9 pg (27.5-34.5); MEAN CORPUSCULAR HGB CONC 32.9 g/dL (33.2-36.2); MEAN CORPUSCULAR VOLUME 87.8 fL (81-97); MEAN PLATELET VOLUME 12.2 fL (7.4-10.4); PLATELET COUNT 193 x10^3/uL (130-400); RED BLOOD COUNT 4.58 x10^6/uL (4.38-5.82); RED CELL DISTRIBUTION WIDTH 16.9 % (9.4-14.8)
[2018-12-17 06:43] LABS: CALCIUM 8.7 mg/dL (8.5-10.1); CHLORIDE 113 mmol/L (98-107)
[2018-12-17 06:49] LABS: ALANINE AMINOTRANSFERASE 33 U/L (12-78); ALBUMIN 2.9 g/dL (3.4-5.0); ALKALINE PHOSPHATASE 77 U/L (45-117); ANION GAP 7 mmol/L (5-15); BILIRUBIN,TOTAL 0.4 mg/dL (0.2-1.0); CREATININE 1.52 mg/dL (0.7-1.3); TOTAL PROTEIN 6.9 g/dL (6.4-8.2)
[2018-12-17 06:53] LABS: BASOPHILS # (AUTO) 0.01 x10^3/uL (0-0.1); BASOPHILS % (AUTO) 0 % (0-1); EOSINOPHILS % (AUTO) 0 % (1-7); LYMPHOCYTES # (AUTO) 0.79 x10^3/uL (1-3.4); LYMPHOCYTES % (AUTO) 7 % (22-44); MD SCAN; MONOCYTES # (AUTO) 0.44 x10^3/uL (0.2-0.8); MONOCYTES % (AUTO) 4 % (2-9); NEUTROPHILS # (AUTO) 10.98 x10^3/uL (1.8-6.8); NEUTROPHILS % (AUTO) 90 % (42-75)
[2018-12-17 07:32] VITALS: BP 116/75
[2018-12-17] MEDS: METOPROLOL TARTRATE 50 MG TABLET PO SCH ×2 (09:00→20:36)
[2018-12-17 10:49] VITALS: BP 130/82
[2018-12-17] MEDS ORDERED: FUROSEMIDE 40 MG/4 ML IV ONE (11:00)
[2018-12-17] MEDS: ENOXAPARIN 40 MG/0.4 ML SQ SCH (11:40)
[2018-12-17 12:43] VITALS: BP 129/78
[2018-12-17] MEDS: FUROSEMIDE 20 MG/2 ML IV SCH (16:23)
[2018-12-17 20:34] VITALS: BP 145/94
[2018-12-18 01:31] VITALS: BP 158/88
[2018-12-18] MEDS: DILTIAZEM 125 MG in SODIUM CHLORIDE 0.9% 100 ML IV SCH (01:47)
[2018-12-18] MEDS: ASPIRIN 325 MG TABLET PO SCH (05:25)
[2018-12-18] MEDS: methylPREDNISolone SOD SUCC 40 MG/ML IVPush SCH ×3 (05:25→17:43)
[2018-12-18 05:56] LABS: ANION GAP 5 mmol/L (5-15); CALCIUM 8.5 mg/dL (8.5-10.1); CHLORIDE 112 mmol/L (98-107); CREATININE 1.67 mg/dL (0.7-1.3)
[2018-12-18 07:06] VITALS: BP 135/87
[2018-12-18] MEDS: FUROSEMIDE 20 MG/2 ML IV SCH ×2 (08:14→17:43)
[2018-12-18] MEDS: METOPROLOL TARTRATE 50 MG TABLET PO SCH ×2 (08:14→21:47)
[2018-12-18] MEDS: ENOXAPARIN 40 MG/0.4 ML SQ SCH (12:11)
[2018-12-18 12:34] VITALS: BP 155/90
[2018-12-18] MEDS: ALBUTEROL SULFATE 2.5 MG/3 ML NPPB PRN (14:06)
[2018-12-19] MEDS: methylPREDNISolone SOD SUCC 40 MG/ML IVPush SCH ×3 (00:01→11:54)
[2018-12-19] MEDS: ASPIRIN 325 MG TABLET PO SCH (06:00)
[2018-12-19] MEDS: METOPROLOL TARTRATE 50 MG TABLET PO SCH (07:59)
[2018-12-19] MEDS: FUROSEMIDE 20 MG/2 ML IV SCH (08:00)
[2018-12-19] MEDS: ENOXAPARIN 40 MG/0.4 ML SQ SCH (11:54)
== END 2018-12-19 13:35 | disposition home or self-care (01) | DRG 915 ==
LOC: ED 05:13 → EDIP 06:20 → ICU 15:51 → 5SO 12-16 15:22 → CCU 12-18 13:30 → DCLOUNGE 12-19 13:30
PROVIDERS: ADMIT Hospitalist; ATTEND Hospitalist
PROC: 5A09357 Assistance with Respiratory Ventilation, Less than 24 Consecutive Hours, Continuous Positive Airway Pressure (ICD-10-PCS; principal; 2018-12-18)
DX: T78.3XXA Angioneurotic edema, initial encounter (principal); I50.33 Acute on chronic diastolic (congestive) heart failure; J96.01 Acute respiratory failure with hypoxia; G93.41 Metabolic encephalopathy; I13.0 Hypertensive heart and chronic kidney disease with heart failure and stage 1 through stage 4 chronic kidney disease, or unspecified chronic kidney disease; I48.92 Unspecified atrial flutter; J44.1 Chronic obstructive pulmonary disease with (acute) exacerbation; D68.69 Other thrombophilia; E87.1 Hypo-osmolality and hyponatremia; I71.2 Thoracic aortic aneurysm, without rupture; E66.9 Obesity, unspecified; E78.5 Hyperlipidemia, unspecified; E87.6 Hypokalemia; F17.200 Nicotine dependence, unspecified, uncomplicated; G47.33 Obstructive sleep apnea (adult) (pediatric); I25.10 Atherosclerotic heart disease of native coronary artery without angina pectoris; I27.20 Pulmonary hypertension, unspecified; I48.0 Paroxysmal atrial fibrillation; N18.3 Chronic kidney disease, stage 3 (moderate); Z59.0 Homelessness; Z79.82 Long term (current) use of aspirin; Z91.14 Patient's other noncompliance with medication regimen; Z91.19 Patient's noncompliance with other medical treatment and regimen; Z95.5 Presence of coronary angioplasty implant and graft; Z88.6 Allergy status to analgesic agent; Z91.013 Allergy to seafood; Z68.39 Body mass index [BMI] 39.0-39.9, adult
CPT/HCPCS: 36415; 36600; 99285; J3490; J7613; 71045; 80048; 80053; 80307; 81003; 82140; 82803; 83735; 83880; 84100; 84443; 84484; 85025; 87081; 93005; 94640; 94660; 96365; 96375; G0378; J1650; J1940; 92523-GN; J2920; J2930; J3475; Q0163

== ENCOUNTER 2018-12-21 12:47 | Emergency (ER) | payer MEDICAID ==
[~2018-12-21] VITALS: Ht 185.4 cm; Wt 136.4 kg
--- NOTE | 2018-12-21 13:16 | NUR ---
SUSAN WHELAN FROM THE [facility] WHERE HE DEVELOPED CHEST PAIN AT 8:00 AM. PT PLACED IN ROOM AND PLACED ON BP, CARDIAC AND CONT. PULSE OXIMETER. ASSESSMENT COMPLETED. EKG DONE AND PRESENTED TO
[2018-12-21] MEDS ORDERED: ASPIRIN 81 MG TABLET CHEW PO ONE (13:30)
[2018-12-21] MEDS ORDERED: KETOROLAC 30 MG/1 ML ONE (13:57)
[2018-12-21] MEDS ORDERED: ASPIRIN 81 MG TABLET CHEW ONE (13:57)
[2018-12-21] MEDS ORDERED: KETOROLAC 30 MG/1 ML IM ONE (14:00)
[2018-12-21 14:18] LABS: ALANINE AMINOTRANSFERASE 113 U/L (12-78); ALBUMIN 3.1 g/dL (3.4-5.0); ANION GAP 8 mmol/L (5-15); CALCIUM 7.7 mg/dL (8.5-10.1); CHLORIDE 113 mmol/L (98-107)
[2018-12-21 14:23] LABS: ALKALINE PHOSPHATASE 77 U/L (45-117); BILIRUBIN,TOTAL 0.7 mg/dL (0.2-1.0); CREATININE 1.49 mg/dL (0.7-1.3); TOTAL PROTEIN 6.3 g/dL (6.4-8.2); TROPONIN I < 0.015 ng/mL (0.000-0.045)
[2018-12-21 14:36] LABS: MD YES; MEAN CORPUSCULAR HEMOGLOBIN 27.8 pg (27.5-34.5); MEAN CORPUSCULAR HGB CONC 31.6 g/dL (33.2-36.2); MEAN CORPUSCULAR VOLUME 87.9 fL (81-97); MEAN PLATELET VOLUME 13.1 fL (7.4-10.4); PLATELET COUNT 189 x10^3/uL (130-400); RED BLOOD COUNT 5.33 x10^6/uL (4.38-5.82); RED CELL DISTRIBUTION WIDTH 16.7 % (9.4-14.8)
[2018-12-21 14:38] LABS: EOS% (MANUAL) 1 % (1-7); LYMPH#(MANUAL) 1.55 x10^3/uL (1-3.4); LYMPHS% (MANUAL) 15 % (22-44); METAMYELOCYTES% (MANUAL) 1 % (0-1); MONOS#(MANUAL) 0.52 x10^3/uL (0.3-2.7); MONOS% (MANUAL) 5 % (2-9); SEG#(MANUAL) 8.03 x10^3/uL (1.8-6.8); SEGS% (MANUAL) 78 % (42-75)
[2018-12-21 14:42] LABS: ANISOCYTOSIS 1+; TARGET CELLS 1+
[2018-12-21 14:43] LABS: POLYCHROMASIA 1+
[2018-12-21 14:46] LABS: <PLATELET ESTIMATE> ADEQUATE; <PLT MORPHOLOGY> NORMAL PLT MORPH
--- NOTE | 2018-12-21 14:57 | NUR ---
PT RESTING IN BED. PT FALLING ASLEEP IN BED.
[2018-12-21] MEDS ORDERED: OMNIPAQUE 350 MG/ML, 150 ML BOTTLE ONE (15:29)
[2018-12-21] MEDS ORDERED: ESMOLOL/NS PMX 250 ML IV ONE (15:53)
[2018-12-21] MEDS ORDERED: DILTIAZEM 5 MG/ML, 10ML ONE (16:13)
--- NOTE | 2018-12-21 16:20 | NUR ---
PT GIVEN CARDIZEM FOR HIGH HEART RATE.
[2018-12-21] MEDS ORDERED: DILTIAZEM 5 MG/ML, 5ML IVPush ONE (16:30)
[2018-12-21 16:32] VITALS: BP 163/82
--- NOTE | 2018-12-21 16:48 | NUR ---
PER ERP DR. LIU RODRIGUES FOR OREN.
== END 2018-12-21 16:49 | disposition home or self-care (01) ==
LOC: ED 16:47
DX: I48.2 Chronic atrial fibrillation (principal); I71.01 Dissection of thoracic aorta
CPT/HCPCS: 36415; 71045; 71275; 80053; 84484; 85025; 93005; 96372; 96374; 99284; J1885; Q9967

== ENCOUNTER 2019-05-14 09:11 | Emergency (ER) | payer MEDICAID ==
[~2019-05-14] VITALS: Ht 182.9 cm; Wt 134.8 kg
[2019-05-14 11:40] VITALS: BP 119/55
== END 2019-05-14 12:16 | disposition home or self-care (01) ==
LOC: ED 11:33
DX: R07.89 Other chest pain (principal); R06.00 Dyspnea, unspecified; R60.0 Localized edema; J44.9 Chronic obstructive pulmonary disease, unspecified; E78.5 Hyperlipidemia, unspecified; I11.0 Hypertensive heart disease with heart failure; I50.9 Heart failure, unspecified; R51 Headache
CPT/HCPCS: 36415; 70450; 71046; 80053; 80307; 83880; 84484; 85025; 93005; 99284

== ENCOUNTER 2019-08-01 17:39 | Inpatient (IN) | payer MEDICAID ==
[~2019-08-01] VITALS: Ht 182.9 cm; Wt 159.5 kg
[~2019-08-01 17:39] MED LIST changes: +ASPI-496 PO; +AZIT500T10 PO; -AZIT500T5 PO; +HYDR50TA13 PO; -NITR0.4T SL; +NITR0.4T41 SL; +TOPI100T24 PO
--- NOTE | 2019-08-01 18:21 | NUR ---
PT PLACED ON ALL ROOM MONITORING DEVICES. VSS. EKG COMPLETED ON ARRIVAL. PT STATES HE FEELS MUCH BETTER SINCE GETTING ALBUTEROL AND DUONEB WITH [facility]. CALL LIGHT WITHIN REACH, WARM BLANKET PROVIDED.
[2019-08-01] MEDS ORDERED: methylPREDNISolone SOD SUCC 125 MG/2 ML IV ONE (18:30)
[2019-08-01] MEDS ORDERED: SODIUM CHLORIDE FLUSH 10ML SYR IVF ONE (18:30)
[2019-08-01 18:56] LABS: MEAN CORPUSCULAR HGB CONC 32.2 g/dL (33.2-36.2); MEAN CORPUSCULAR VOLUME 83.7 fL (81-97); PLATELET COUNT 162 x10^3/uL (130-400); RED BLOOD COUNT 5.25 x10^6/uL (4.38-5.82); RED CELL DISTRIBUTION WIDTH 21.7 % (9.4-14.8)
--- NOTE | 2019-08-01 18:56 | NUR ---
REPORT TO TONY TAVARES, TRANSFER OF CARE AT THIS TIME.
[2019-08-01 18:58] LABS: ALBUMIN 2.9 g/dL (3.4-5.0); ANION GAP 4 mmol/L (5-15); CHLORIDE 112 mmol/L (98-107); CREATININE 1.22 mg/dL (0.7-1.3)
[2019-08-01 19:06] LABS: TROPONIN I < 0.015 ng/mL (0.000-0.045)
[2019-08-01 19:13] LABS: ANISOCYTOSIS 1+; BASOPHILS # (AUTO) 0.04 x10^3/uL (0-0.1); BASOPHILS % (AUTO) 1 % (0-1); EOSINOPHILS # (AUTO) 0.32 x10^3/uL (0-0.4); EOSINOPHILS % (AUTO) 4 % (1-7); LYMPHOCYTES # (AUTO) 2.44 x10^3/uL (1-3.4); LYMPHOCYTES % (AUTO) 29 % (22-44); MD MORPH REVIEW ONLY; MONOCYTES # (AUTO) 0.68 x10^3/uL (0.2-0.8); MONOCYTES % (AUTO) 8 % (2-9); NEUTROPHILS # (AUTO) 4.97 x10^3/uL (1.8-6.8); NEUTROPHILS % (AUTO) 59 % (42-75)
[2019-08-01 19:14] LABS: <PLATELET ESTIMATE> ADEQUATE; GIANT PLATELETS 1+; LARGE PLATELETS 1+; OVALOCYTES 1+; POLYCHROMASIA 1+; TARGET CELLS 1+
--- NOTE | 2019-08-01 19:55 | NUR ---
PT RESTING CALMLY IN BED WITH EYES CLOSED. PT VSS, SEE CHARTED. PT GIVEN URINAL TO VOID. WILL CONTINUE TO MONITOR.
[2019-08-01] MEDS ORDERED: methylPREDNISolone SOD SUCC 125 MG/2 ML ONE (20:34)
[2019-08-01] MEDS ORDERED: SODIUM CHLORIDE FLUSH 10ML SYR IVF PRN (21:00)
[2019-08-01] MEDS ORDERED: APIX5TAB PO (21:02)
[2019-08-01] MEDS ORDERED: LISI-170 PO (21:02)
[2019-08-01] MEDS ORDERED: ACET-1600 PO (21:02)
[2019-08-01] MEDS ORDERED: SPIR25TA5 PO (21:02)
[2019-08-01] MEDS ORDERED: DILT240C55 PO (21:02)
[2019-08-01] MEDS ORDERED: TIOT4MIS5 INH (21:02)
--- NOTE | 2019-08-01 21:24 | NUR ---
REPORT GIVEN TO KEITH RN FLOOR RN
[2019-08-01 22:00] VITALS: BP 152/96
[2019-08-01] MEDS ORDERED: ALBUTEROL/IPRATROPIUM 2.5MG/0.5MG, 3 ML NPPB PRN (23:00)
[2019-08-01 23:24] LABS: TROPONIN I < 0.015 ng/mL (0.000-0.045)
[2019-08-02] MEDS ORDERED: ONDANSETRON ODT 4 MG PO PRN (00:30)
[2019-08-02] MEDS ORDERED: LIDODERM 5% PATCH TD PRN (00:30)
[2019-08-02] MEDS ORDERED: DIPHENHYDRAMINE 25 MG CAPSULE PO PRN (00:30)
[2019-08-02] MEDS: ENOXAPARIN 40 MG/0.4 ML SQ SCH ×2 (00:30→23:59)
[2019-08-02] MEDS ORDERED: DOCUSATE 100 MG CAPSULE PO PRN (00:30)
[2019-08-02] MEDS: CEFTRIAXONE PMX 2GM/50ML 50 ML IV SCH (01:07)
[2019-08-02] MEDS: BENZONATATE 100 MG CAPSULE PO SCH ×4 (01:13→21:48)
[2019-08-02 01:21] VITALS: BP 152/96
[2019-08-02] MEDS: AZITHROMYCIN 500 MG in SODIUM CHLORIDE 0.9% 250 ML IV SCH (01:46)
[2019-08-02 02:00] VITALS: BP 142/86
[2019-08-02 02:27] LABS: RAPID INFLUENZA A Negative (Negative); RAPID INFLUENZA B Negative (Negative)
[2019-08-02] MEDS: methylPREDNISolone SOD SUCC 40 MG/ML IVPush SCH ×4 (03:27→21:48)
[2019-08-02] MEDS: ALBUTEROL/IPRATROPIUM 2.5MG/0.5MG, 3 ML NPPB SCH ×5 (06:45→23:44)
[2019-08-02 07:38] VITALS: BP 141/81
[2019-08-02 13:13] VITALS: BP 157/72
[2019-08-02 19:13] VITALS: BP 145/78
[2019-08-03] MEDS: CEFTRIAXONE PMX 2GM/50ML 50 ML IV SCH (01:01)
[2019-08-03 01:51] VITALS: BP 155/92
[2019-08-03] MEDS: AZITHROMYCIN 500 MG in SODIUM CHLORIDE 0.9% 250 ML IV SCH (02:08)
[2019-08-03] MEDS: methylPREDNISolone SOD SUCC 40 MG/ML IVPush SCH ×2 (04:11→09:30)
[2019-08-03 04:57] LABS: ANION GAP 5 mmol/L (5-15); CALCIUM 8.6 mg/dL (8.5-10.1); CHLORIDE 115 mmol/L (98-107); CREATININE 1.18 mg/dL (0.7-1.3)
[2019-08-03 04:59] LABS: MEAN CORPUSCULAR HEMOGLOBIN 27.3 pg (27.5-34.5); MEAN CORPUSCULAR HGB CONC 32.3 g/dL (33.2-36.2); MEAN CORPUSCULAR VOLUME 84.5 fL (81-97); MEAN PLATELET VOLUME 11.9 fL (7.4-10.4); PLATELET COUNT 155 x10^3/uL (130-400); RED BLOOD COUNT 5.07 x10^6/uL (4.38-5.82); RED CELL DISTRIBUTION WIDTH 21.2 % (9.4-14.8)
[2019-08-03 05:32] VITALS: BP 156/97
[2019-08-03] MEDS: METOPROLOL TARTRATE 25 MG TABLET PO SCH ×2 (05:35→17:36)
[2019-08-03] MEDS: ASPIRIN 81 MG TABLET EC PO SCH (05:35)
[2019-08-03 05:48] LABS: BASOPHILS % (AUTO) 0 % (0-1); EOSINOPHILS # (AUTO) 0.06 x10^3/uL (0-0.4); EOSINOPHILS % (AUTO) 1 % (1-7); LYMPHOCYTES # (AUTO) 1.38 x10^3/uL (1-3.4); LYMPHOCYTES % (AUTO) 11 % (22-44); MD SCAN; MONOCYTES # (AUTO) 0.65 x10^3/uL (0.2-0.8); MONOCYTES % (AUTO) 5 % (2-9); NEUTROPHILS # (AUTO) 10.12 x10^3/uL (1.8-6.8); NEUTROPHILS % (AUTO) 83 % (42-75)
[2019-08-03] MEDS: ALBUTEROL/IPRATROPIUM 2.5MG/0.5MG, 3 ML NPPB SCH ×5 (07:00→23:00)
[2019-08-03 07:45] VITALS: BP 153/93
[2019-08-03] MEDS: BENZONATATE 100 MG CAPSULE PO SCH ×3 (08:17→21:24)
[2019-08-03] MEDS: NICOTINE 21 MG/24 HR PATCH.TD24 TD SCH (09:33)
[2019-08-03] MEDS: ACETAMINOPHEN 325 MG TABLET PO PRN ×2 (12:28→17:53)
[2019-08-03 12:51] VITALS: BP 160/95
[2019-08-03] MEDS: methylPREDNISolone SOD SUCC 125 MG/2 ML IVPush SCH (18:33)
[2019-08-03 19:03] VITALS: BP 153/94
[2019-08-03] MEDS ORDERED: ENOXAPARIN 40 MG/0.4 ML SQ SCH (21:00)
[2019-08-03] MEDS ORDERED: ENOXAPARIN 30 MG/0.3 ML SQ SCH (21:00)
[2019-08-03] MEDS: ENOXAPARIN 30 MG/0.3 ML SQ SCH (21:00)
[2019-08-04] VITALS (8 sets, daily range): BP systolic 142–178; BP diastolic 83–110
[2019-08-04] MEDS: CEFTRIAXONE PMX 2GM/50ML 50 ML IV SCH (01:03)
[2019-08-04] MEDS: methylPREDNISolone SOD SUCC 125 MG/2 ML IVPush SCH ×3 (01:03→12:41)
[2019-08-04] MEDS: AZITHROMYCIN 500 MG in SODIUM CHLORIDE 0.9% 250 ML IV SCH (01:20)
[2019-08-04] MEDS: ALBUTEROL/IPRATROPIUM 2.5MG/0.5MG, 3 ML NPPB SCH ×6 (02:48→22:20)
[2019-08-04] MEDS: METOPROLOL TARTRATE 25 MG TABLET PO SCH (05:15)
[2019-08-04] MEDS: ASPIRIN 81 MG TABLET EC PO SCH (05:15)
[2019-08-04] MEDS: GUAIFENESIN 200 MG TABLET PO SCH ×2 (06:15→09:00)
[2019-08-04] MEDS: hydrALAzine 20 MG/ML, 1ML IVPush PRN (08:08)
[2019-08-04] MEDS: ENOXAPARIN 30 MG/0.3 ML SQ SCH ×2 (09:00→19:56)
[2019-08-04] MEDS: NICOTINE 21 MG/24 HR PATCH.TD24 TD SCH (09:30)
[2019-08-04] MEDS: BENZONATATE 100 MG CAPSULE PO SCH ×3 (09:30→19:57)
[2019-08-04] MEDS: methylPREDNISolone SOD SUCC 40 MG/ML IVPush SCH (18:02)
[2019-08-04] MEDS: METOPROLOL TARTRATE 50 MG TABLET PO SCH (18:02)
[2019-08-04] MEDS: ACETAMINOPHEN 325 MG TABLET PO PRN (18:06)
[2019-08-04] MEDS: LISINOPRIL 20 MG TABLET PO SCH (19:57)
[2019-08-04] MEDS ORDERED: GUAIFENESIN/DM 200-20MG, 10ML UDC PO ONE (20:30)
[2019-08-05 00:08] VITALS: BP 174/112
[2019-08-05] MEDS: hydrALAzine 20 MG/ML, 1ML IVPush PRN (00:12)
[2019-08-05] MEDS: CEFTRIAXONE PMX 2GM/50ML 50 ML IV SCH (00:37)
[2019-08-05] MEDS: methylPREDNISolone SOD SUCC 40 MG/ML IVPush SCH ×2 (00:37→06:08)
[2019-08-05] MEDS: AZITHROMYCIN 500 MG in SODIUM CHLORIDE 0.9% 250 ML IV SCH (01:50)
[2019-08-05] MEDS: ALBUTEROL/IPRATROPIUM 2.5MG/0.5MG, 3 ML NPPB SCH ×3 (02:47→11:15)
[2019-08-05] MEDS: ACETAMINOPHEN 325 MG TABLET PO PRN (03:06)
[2019-08-05] MEDS: SODIUM CHLORIDE NASAL SPRAY 45ML BOTTLE NAS PRN ×2 (03:37→09:04)
[2019-08-05 03:38] VITALS: BP 149/83
[2019-08-05 06:06] VITALS: BP 152/92
[2019-08-05] MEDS: ASPIRIN 81 MG TABLET EC PO SCH (06:07)
[2019-08-05] MEDS: METOPROLOL TARTRATE 50 MG TABLET PO SCH (06:07)
[2019-08-05 07:45] VITALS: BP 159/106
[2019-08-05] MEDS: NICOTINE 21 MG/24 HR PATCH.TD24 TD SCH (08:58)
[2019-08-05] MEDS: BENZONATATE 100 MG CAPSULE PO SCH (08:59)
[2019-08-05] MEDS: LISINOPRIL 20 MG TABLET PO SCH (08:59)
[2019-08-05] MEDS: ENOXAPARIN 30 MG/0.3 ML SQ SCH (09:00)
[2019-08-05] MEDS ORDERED: CEFD300C37 PO (10:00)
[2019-08-05] MEDS ORDERED: NICO-487 TD (10:00)
[2019-08-05] MEDS ORDERED: LACT1TAB13 PO (10:00)
[2019-08-05] MEDS ORDERED: LISI-170 PO (10:00)
[2019-08-05] MEDS ORDERED: ASPI81TA45 PO (10:00)
[2019-08-05] MEDS ORDERED: AZIT500T PO (10:00)
[2019-08-05] MEDS ORDERED: LIDO700A20 TD (10:00)
[2019-08-05] MEDS ORDERED: BENZ-17 PO (10:00)
[2019-08-05] MEDS ORDERED: METO50TA82 PO (10:00)
[2019-08-05] MEDS ORDERED: FLUT1DIS3 INH (10:00)
[2019-08-05] MEDS ORDERED: PRED10TA PO (12:17)
[2019-08-05 12:50] VITALS: BP 160/106
== END 2019-08-05 13:30 | disposition home or self-care (01) | DRG 189 ==
LOC: ED 20:22 → EDIP 21:19 → 3N 21:41 → DCLOUNGE 08-05 13:00
PROVIDERS: ADMIT Internal Medicine; ATTEND Internal Medicine
DX: J96.01 Acute respiratory failure with hypoxia (principal); D68.69 Other thrombophilia; I50.32 Chronic diastolic (congestive) heart failure; J44.1 Chronic obstructive pulmonary disease with (acute) exacerbation; I13.0 Hypertensive heart and chronic kidney disease with heart failure and stage 1 through stage 4 chronic kidney disease, or unspecified chronic kidney disease; Z68.42 Body mass index [BMI] 45.0-49.9, adult; D72.829 Elevated white blood cell count, unspecified; E66.01 Morbid (severe) obesity due to excess calories; E78.5 Hyperlipidemia, unspecified; F17.200 Nicotine dependence, unspecified, uncomplicated; G47.33 Obstructive sleep apnea (adult) (pediatric); I25.10 Atherosclerotic heart disease of native coronary artery without angina pectoris; I27.20 Pulmonary hypertension, unspecified; I48.0 Paroxysmal atrial fibrillation; N18.3 Chronic kidney disease, stage 3 (moderate); Z59.0 Homelessness; Z91.14 Patient's other noncompliance with medication regimen; Z95.5 Presence of coronary angioplasty implant and graft; Z88.8 Allergy status to other drugs, medicaments and biological substances; Z91.013 Allergy to seafood
CPT/HCPCS: 36415; 87400; 96374; 99285; J7620; 71045; 80048; 82040; 83605; 83880; 84484; 85025; 87040; 87081; 87880; 93005; 94640; G0378; J0456; J0696; J0360; J2920; J2930; J7050; Q0163

== ENCOUNTER 2019-08-21 11:17 | Emergency (ER) | payer MEDICAID ==
[~2019-08-21] VITALS: Ht 182.9 cm; Wt 136.5 kg
[~2019-08-21 11:17] MED LIST changes: +ACET-1600 PO; +ASPI81TA45 PO; +AZIT500T PO; +BENZ-17 PO; +CEFD300C37 PO; +DILT240C55 PO; +FLUT1DIS3 INH; +LACT1TAB13 PO; +LIDO700A20 TD; +LISI-170 PO; +NICO-487 TD; +TIOT4MIS5 INH
[2019-08-21] MEDS ORDERED: AMLODIPINE 5 MG TABLET ONE (12:13)
[2019-08-21 12:57] VITALS: BP 163/86
[2019-08-21] MEDS ORDERED: AMLODIPINE 5 MG TABLET PO ONE (13:00)
== END 2019-08-21 14:03 | disposition home or self-care (01) ==
LOC: ED 13:57
DX: I10 Essential (primary) hypertension (principal); T46.4X5A Adverse effect of angiotensin-converting-enzyme inhibitors, initial encounter; J44.9 Chronic obstructive pulmonary disease, unspecified; F17.200 Nicotine dependence, unspecified, uncomplicated; E78.5 Hyperlipidemia, unspecified; E66.9 Obesity, unspecified; Z68.41 Body mass index [BMI] 40.0-44.9, adult; Z72.9 Problem related to lifestyle, unspecified
CPT/HCPCS: 80047; 93005; 99284

== ENCOUNTER 2019-08-22 09:27 | Emergency (ER) | payer MEDICAID ==
[~2019-08-22] VITALS: Ht 182.9 cm; Wt 131.0 kg
[2019-08-22] MEDS ORDERED: LIDOCAINE-MPF 1%, 5ML INFIL ONE (09:30)
[2019-08-22] MEDS ORDERED: DIPH,PERTUSS(ACELL),TET VAC/PF 0.5 ML IM-VACC ONE ×2 (09:30→09:51)
--- NOTE | 2019-08-22 09:34 | NUR ---
BIB [facility], PT WITH GLF, PT REPORTS +LOC. PT ON ELIQUIS FOR HX OF AL C STENTS. PT WITH 1 IN LAC TO CENTER OF FOREHEAD. PT REPORTED DIZZINESS PRIOR TO FALL. PT DENIES CP, SOB AT THIS TIME. ERPROVIDER IN TO EVAL PT. PT TO BP, CONT PULSE OX, CARD MONITOR
[2019-08-22] MEDS ORDERED: AMLODIPINE 5 MG TABLET ONE (09:51)
[2019-08-22] MEDS ORDERED: LIDOCAINE-MPF 1%, 5ML ONE (09:51)
--- NOTE | 2019-08-22 09:59 | NUR ---
PT MEDICATED PER NOV, PT NOW TO CT
[2019-08-22] MEDS ORDERED: PLEASE ENTER ALLERGIES MC SCH (10:00)
[2019-08-22] MEDS ORDERED: AMLODIPINE 5 MG TABLET PO ONE (10:00)
[2019-08-22 10:30] VITALS: BP 162/89
--- NOTE | 2019-08-22 10:43 | NUR ---
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 NO OTHER NEEDS AT THIS TIME
[2019-08-22 10:53] LABS: ANION GAP 4 mmol/L (5-15); CALCIUM 8.4 mg/dL (8.5-10.1); CHLORIDE 113 mmol/L (98-107); CREATININE 1.08 mg/dL (0.7-1.3)
[2019-08-22 11:12] LABS: MD YES; MEAN CORPUSCULAR HEMOGLOBIN 27.8 pg (27.5-34.5); MEAN CORPUSCULAR HGB CONC 32.8 g/dL (33.2-36.2); MEAN CORPUSCULAR VOLUME 84.8 fL (81-97); MEAN PLATELET VOLUME 11.1 fL (7.4-10.4); PLATELET COUNT 153 x10^3/uL (130-400); RED CELL DISTRIBUTION WIDTH 20.6 % (9.4-14.8)
[2019-08-22 11:14] LABS: ANISOCYTOSIS 1+; EOS% (MANUAL) 3 % (1-7); LYMPHS% (MANUAL) 23 % (22-44); MONOS#(MANUAL) 0.13 x10^3/uL (0.3-2.7); MONOS% (MANUAL) 2 % (2-9); POLYCHROMASIA 1+; SEG#(MANUAL) 4.68 x10^3/uL (1.8-6.8); SEGS% (MANUAL) 72 % (42-75); TARGET CELLS 1+
[2019-08-22 11:15] LABS: OVALOCYTES 1+
[2019-08-22 11:16] LABS: <PLATELET ESTIMATE> ADEQUATE; LARGE PLATELETS 2+
[2019-08-22] MEDS ORDERED: NEOSPORIN OINT. PKT 1 PACKET ONE (11:30)
== END 2019-08-22 12:07 | disposition home or self-care (01) ==
LOC: ED 11:52
DX: S01.81XA Laceration without foreign body of other part of head, initial encounter (principal); E78.5 Hyperlipidemia, unspecified; J44.9 Chronic obstructive pulmonary disease, unspecified; I11.0 Hypertensive heart disease with heart failure; I50.9 Heart failure, unspecified; I48.92 Unspecified atrial flutter; R55 Syncope and collapse; Z88.5 Allergy status to narcotic agent; X58.XXXA Exposure to other specified factors, initial encounter; Y93.89 Activity, other specified; Y92.89 Other specified places as the place of occurrence of the external cause; Y99.8 Other external cause status
CPT/HCPCS: 12051; 36415; 70450; 72125; 80048; 82040; 83735; 85025; 90471; 90715; 93005

== ENCOUNTER 2019-09-04 16:16 | Emergency (ER) | payer MEDICAID ==
[~2019-09-04] VITALS: Ht 182.9 cm; Wt 140.0 kg
--- NOTE | 2019-09-04 16:19 | NUR ---
CALLED FROM [facility] NO ANSWER
--- NOTE | 2019-09-04 16:27 | NUR ---
CALLED PT FROM [facility] NO ANSWER
--- NOTE | 2019-09-04 16:33 | NUR ---
PT TO ROOM FROM [facility].
--- NOTE | 2019-09-04 17:05 | NUR ---
BREAK RN FOR PRIMARY RN PETRA. PT RESTING IN POSITION OF COMFORT WITH EYES CLOSED, DENIES ANY PAIN AND NEED TO USE RESTROOM. A&OX4. RESP REGULAR AND UNLABORED, PULSE OX 95% RA. VSS. AWAITING EVALUATION BY ERP. CALL LIGHT IN REACH. FALL PRECUATIONS IN PLACE.
--- NOTE | 2019-09-04 17:20 | NUR ---
DR. FONTANA AT BEDSIDE FOR EVALUATION
--- NOTE | 2019-09-04 17:32 | NUR ---
REPORT AND CARE BACK TO PRIMARY CHAITANYA LAMBERT AT THIS TIME
[2019-09-04 18:16] LABS: MEAN CORPUSCULAR HGB CONC 32.9 g/dL (33.2-36.2); MEAN CORPUSCULAR VOLUME 85.3 fL (81-97); MEAN PLATELET VOLUME 11.6 fL (7.4-10.4); PLATELET COUNT 167 x10^3/uL (130-400); RED BLOOD COUNT 4.92 x10^6/uL (4.38-5.82); RED CELL DISTRIBUTION WIDTH 19.7 % (9.4-14.8)
[2019-09-04 18:24] LABS: ALANINE AMINOTRANSFERASE 26 U/L (12-78); ALBUMIN 2.8 g/dL (3.4-5.0); ANION GAP 4 mmol/L (5-15); CALCIUM 8.3 mg/dL (8.5-10.1); CHLORIDE 114 mmol/L (98-107); CREATININE 1.07 mg/dL (0.7-1.3)
[2019-09-04 18:28] LABS: ALKALINE PHOSPHATASE 98 U/L (45-117); BILIRUBIN,TOTAL 0.4 mg/dL (0.2-1.0); TOTAL PROTEIN 6.3 g/dL (6.4-8.2); TROPONIN I < 0.015 ng/mL (0.000-0.045)
[2019-09-04 18:33] LABS: BASOPHILS # (AUTO) 0.04 x10^3/uL (0-0.1); BASOPHILS % (AUTO) 1 % (0-1); EOSINOPHILS # (AUTO) 0.12 x10^3/uL (0-0.4); EOSINOPHILS % (AUTO) 2 % (1-7); LYMPHOCYTES # (AUTO) 1.95 x10^3/uL (1-3.4); LYMPHOCYTES % (AUTO) 30 % (22-44); MD SCAN; MONOCYTES # (AUTO) 0.78 x10^3/uL (0.2-0.8); MONOCYTES % (AUTO) 12 % (2-9); NEUTROPHILS # (AUTO) 3.56 x10^3/uL (1.8-6.8); NEUTROPHILS % (AUTO) 55 % (42-75)
[2019-09-04 18:37] VITALS: BP 146/97
== END 2019-09-04 18:49 | disposition home or self-care (01) ==
LOC: ED 18:15
DX: J15.9 Unspecified bacterial pneumonia (principal); I11.0 Hypertensive heart disease with heart failure; I50.9 Heart failure, unspecified; J44.9 Chronic obstructive pulmonary disease, unspecified; I48.92 Unspecified atrial flutter
CPT/HCPCS: 36415; 71045; 80053; 83880; 84484; 85025; 93005; 99284

== ENCOUNTER 2019-09-07 15:49 | Inpatient (IN) | payer MEDICAID ==
[~2019-09-07] VITALS: Ht 182.9 cm; Wt 134.0 kg
[2019-09-07] MEDS ORDERED: FUROSEMIDE 20 MG/2 ML IV ONE (16:00)
[2019-09-07] MEDS ORDERED: PLEASE ENTER HEIGHT AND WEIGHT MC SCH (16:30)
[2019-09-07 17:00] LABS: ALANINE AMINOTRANSFERASE 23 U/L (12-78); ALBUMIN 2.9 g/dL (3.4-5.0); ANION GAP 6 mmol/L (5-15); CALCIUM 8.3 mg/dL (8.5-10.1); CHLORIDE 114 mmol/L (98-107); CREATININE 1.05 mg/dL (0.7-1.3)
[2019-09-07] MEDS ORDERED: FUROSEMIDE 20 MG TABLET PO ONE (17:00)
[2019-09-07] MEDS ORDERED: FUROSEMIDE 20 MG TABLET ONE (17:01)
[2019-09-07 17:04] LABS: ALKALINE PHOSPHATASE 96 U/L (45-117); BILIRUBIN,TOTAL 0.3 mg/dL (0.2-1.0); TOTAL PROTEIN 6.3 g/dL (6.4-8.2); TROPONIN I < 0.015 ng/mL (0.000-0.045)
--- NOTE | 2019-09-07 17:04 | NUR ---
PATIENT MEDICATED WITH LASIX PO
[2019-09-07 17:09] LABS: MEAN CORPUSCULAR HEMOGLOBIN 27.4 pg (27.5-34.5); MEAN CORPUSCULAR HGB CONC 32.1 g/dL (33.2-36.2); MEAN CORPUSCULAR VOLUME 85.6 fL (81-97); MEAN PLATELET VOLUME 11.1 fL (7.4-10.4); PLATELET COUNT 173 x10^3/uL (130-400); RED BLOOD COUNT 4.93 x10^6/uL (4.38-5.82); RED CELL DISTRIBUTION WIDTH 19.5 % (9.4-14.8)
--- NOTE | 2019-09-07 17:20 | NUR ---
ULTRASOUND PIV ATTEMPT
[2019-09-07 17:27] LABS: BASOPHILS # (AUTO) 0.04 x10^3/uL (0-0.1); BASOPHILS % (AUTO) 1 % (0-1); EOSINOPHILS # (AUTO) 0.25 x10^3/uL (0-0.4); EOSINOPHILS % (AUTO) 4 % (1-7); LYMPHOCYTES # (AUTO) 1.43 x10^3/uL (1-3.4); LYMPHOCYTES % (AUTO) 23 % (22-44); MD SCAN; MONOCYTES # (AUTO) 0.87 x10^3/uL (0.2-0.8); MONOCYTES % (AUTO) 14 % (2-9); NEUTROPHILS # (AUTO) 3.71 x10^3/uL (1.8-6.8); NEUTROPHILS % (AUTO) 59 % (42-75)
--- NOTE | 2019-09-07 18:12 | NUR ---
RT NOTIFIED FOR BREATHING TREATMENT
[2019-09-07] MEDS ORDERED: methylPREDNISolone SOD SUCC 125 MG/2 ML ONE (18:17)
[2019-09-07] MEDS ORDERED: ALBUTEROL SULFATE 2.5 MG/3 ML ONE (18:28)
[2019-09-07] MEDS ORDERED: methylPREDNISolone SOD SUCC 125 MG/2 ML IVPush ONE (18:30)
--- NOTE | 2019-09-07 18:43 | NUR ---
RT AT BEDSIDE FOR BREATHING TREATMENT
--- NOTE | 2019-09-07 18:49 | NUR ---
received report from CHAITANYA Kemp.
--- NOTE | 2019-09-07 19:55 | NUR ---
attempted to give report. unsuccessful.
--- NOTE | 2019-09-07 20:07 | NUR ---
report to CHAITANYA Barrera - Charge / Outside Cutter.
[2019-09-07] MEDS ORDERED: ONDANSETRON ODT 4 MG PO PRN (21:30)
[2019-09-07] MEDS ORDERED: DOCUSATE 100 MG CAPSULE PO PRN (21:30)
[2019-09-07] MEDS ORDERED: ENALAPRILAT 1.25 MG/ML, 2ML IVPush PRN (21:30)
[2019-09-07] MEDS ORDERED: TEMAZEPAM 15 MG CAPSULE PO PRN (21:30)
[2019-09-07 21:46] VITALS: BP 150/87
[2019-09-07] MEDS ORDERED: LIDODERM 5% PATCH TD PRN (22:00)
[2019-09-07] MEDS: ALBUTEROL/IPRATROPIUM 2.5MG/0.5MG, 3 ML NPPB PRN (22:51)
[2019-09-07] MEDS: ENOXAPARIN 40 MG/0.4 ML SQ SCH ×2 (23:01→23:02)
[2019-09-07] MEDS: ACETAMINOPHEN 325 MG TABLET PO PRN (23:58)
[2019-09-08 00:15] VITALS: BP 170/94
[2019-09-08 05:39] VITALS: BP 167/92
[2019-09-08] MEDS: METOPROLOL TARTRATE 50 MG TABLET PO SCH ×2 (05:41→18:16)
[2019-09-08 06:28] LABS: MEAN CORPUSCULAR HEMOGLOBIN 27.7 pg (27.5-34.5); MEAN CORPUSCULAR HGB CONC 32.3 g/dL (33.2-36.2); MEAN CORPUSCULAR VOLUME 85.7 fL (81-97); MEAN PLATELET VOLUME 12.2 fL (7.4-10.4); PLATELET COUNT 169 x10^3/uL (130-400); RED BLOOD COUNT 4.95 x10^6/uL (4.38-5.82); RED CELL DISTRIBUTION WIDTH 19.5 % (9.4-14.8)
[2019-09-08 06:30] LABS: ANION GAP 6 mmol/L (5-15); CALCIUM 8.7 mg/dL (8.5-10.1); CHLORIDE 113 mmol/L (98-107); CREATININE 0.86 mg/dL (0.7-1.3)
[2019-09-08] MEDS ORDERED: hydrALAzine 20 MG/ML, 1ML IV PRN (06:30)
[2019-09-08 06:50] LABS: BASOPHILS # (AUTO) 0.01 x10^3/uL (0-0.1); BASOPHILS % (AUTO) 0 % (0-1); EOSINOPHILS # (AUTO) 0.02 x10^3/uL (0-0.4); EOSINOPHILS % (AUTO) 0 % (1-7); LYMPHOCYTES # (AUTO) 0.69 x10^3/uL (1-3.4); LYMPHOCYTES % (AUTO) 12 % (22-44); MD SCAN; MONOCYTES # (AUTO) 0.09 x10^3/uL (0.2-0.8); MONOCYTES % (AUTO) 2 % (2-9); NEUTROPHILS # (AUTO) 5.12 x10^3/uL (1.8-6.8); NEUTROPHILS % (AUTO) 86 % (42-75)
[2019-09-08 09:10] VITALS: BP 152/77
[2019-09-08] MEDS: NICOTINE 7 MG/24 HR PATCH.TD24 TD SCH (09:21)
[2019-09-08] MEDS: SPIRONOLACTONE 25 MG TABLET PO SCH (09:21)
[2019-09-08] MEDS: TOPIRAMATE 100 MG TABLET PO SCH (09:21)
[2019-09-08] MEDS: DILTIAZEM 240 MG CAP.ER.24H PO SCH (09:21)
[2019-09-08] MEDS: methylPREDNISolone SOD SUCC 40 MG/ML IV SCH ×2 (09:22→20:43)
[2019-09-08] MEDS: LISINOPRIL 20 MG TABLET PO SCH ×2 (09:22→20:43)
[2019-09-08] MEDS: ACETAMINOPHEN 325 MG TABLET PO PRN ×3 (09:22→22:54)
[2019-09-08] MEDS: CLOPIDOGREL 75 MG TABLET PO SCH (09:22)
[2019-09-08] MEDS: AZITHROMYCIN 500 MG TABLET PO SCH (09:22)
[2019-09-08] MEDS: ASPIRIN 81 MG TABLET EC PO SCH (09:22)
[2019-09-08 13:49] VITALS: BP 161/95
[2019-09-08] MEDS: ALBUTEROL/IPRATROPIUM 2.5MG/0.5MG, 3 ML NPPB PRN ×2 (15:09→21:19)
[2019-09-08 19:23] VITALS: BP 150/79
[2019-09-08] MEDS: ENOXAPARIN 40 MG/0.4 ML SQ SCH (21:34)
[2019-09-09] VITALS: BP 161/93
[2019-09-09 01:45] VITALS: BP 168/103
[2019-09-09] MEDS: METOPROLOL TARTRATE 50 MG TABLET PO SCH ×2 (05:38→17:45)
[2019-09-09] MEDS ORDERED: ALBUTEROL/IPRATROPIUM 2.5MG/0.5MG, 3 ML NPPB SCH (07:00)
[2019-09-09] MEDS: NICOTINE 7 MG/24 HR PATCH.TD24 TD SCH (08:10)
[2019-09-09] MEDS: DILTIAZEM 240 MG CAP.ER.24H PO SCH (08:10)
[2019-09-09] MEDS: AZITHROMYCIN 500 MG TABLET PO SCH (08:10)
[2019-09-09] MEDS: CLOPIDOGREL 75 MG TABLET PO SCH (08:11)
[2019-09-09] MEDS: TOPIRAMATE 100 MG TABLET PO SCH (08:11)
[2019-09-09] MEDS: LISINOPRIL 20 MG TABLET PO SCH ×2 (08:11→19:53)
[2019-09-09] MEDS: methylPREDNISolone SOD SUCC 40 MG/ML IV SCH ×2 (08:11→19:54)
[2019-09-09] MEDS: ASPIRIN 81 MG TABLET EC PO SCH (08:19)
[2019-09-09] MEDS: SPIRONOLACTONE 25 MG TABLET PO SCH (08:22)
[2019-09-09 08:37] VITALS: BP 148/77
[2019-09-09 09:25] LABS: ANION GAP 8 mmol/L (5-15); CHLORIDE 114 mmol/L (98-107); CREATININE 1.22 mg/dL (0.7-1.3)
[2019-09-09 10:03] LABS: BASOPHILS # (AUTO) 0.07 x10^3/uL (0-0.1); BASOPHILS % (AUTO) 1 % (0-1); EOSINOPHILS # (AUTO) 0.03 x10^3/uL (0-0.4); EOSINOPHILS % (AUTO) 0 % (1-7); LYMPHOCYTES # (AUTO) 1.13 x10^3/uL (1-3.4); LYMPHOCYTES % (AUTO) 9 % (22-44); MD SCAN; MEAN CORPUSCULAR HEMOGLOBIN 27.1 pg (27.5-34.5); MEAN CORPUSCULAR HGB CONC 32.1 g/dL (33.2-36.2); MEAN CORPUSCULAR VOLUME 84.5 fL (81-97); MEAN PLATELET VOLUME 11.3 fL (7.4-10.4); MONOCYTES # (AUTO) 1.02 x10^3/uL (0.2-0.8); MONOCYTES % (AUTO) 8 % (2-9); NEUTROPHILS # (AUTO) 10.06 x10^3/uL (1.8-6.8); NEUTROPHILS % (AUTO) 82 % (42-75); PLATELET COUNT 196 x10^3/uL (130-400); RED BLOOD COUNT 4.97 x10^6/uL (4.38-5.82); RED CELL DISTRIBUTION WIDTH 19.3 % (9.4-14.8)
[2019-09-09] MEDS: ALBUTEROL/IPRATROPIUM 2.5MG/0.5MG, 3 ML NPPB PRN ×2 (10:22→23:00)
[2019-09-09] MEDS: ALBUTEROL/IPRATROPIUM 2.5MG/0.5MG, 3 ML NPPB SCH ×3 (11:00→18:56)
[2019-09-09 13:30] VITALS: BP 130/75
[2019-09-09] MEDS: ACETAMINOPHEN 325 MG TABLET PO PRN ×2 (17:46→22:32)
[2019-09-09 20:46] VITALS: BP 136/79
[2019-09-09] MEDS: ENOXAPARIN 40 MG/0.4 ML SQ SCH (22:00)
[2019-09-10 01:18] VITALS: BP 139/82
[2019-09-10] MEDS: ALBUTEROL/IPRATROPIUM 2.5MG/0.5MG, 3 ML NPPB PRN (02:00)
[2019-09-10] MEDS: ACETAMINOPHEN 325 MG TABLET PO PRN ×2 (05:37→21:12)
[2019-09-10] MEDS: METOPROLOL TARTRATE 50 MG TABLET PO SCH ×2 (05:38→18:25)
[2019-09-10] MEDS ORDERED: FUROSEMIDE 40 MG/4 ML IV ONE (06:30)
[2019-09-10 07:44] LABS: ANION GAP 6 mmol/L (5-15); CALCIUM 9.1 mg/dL (8.5-10.1); CHLORIDE 113 mmol/L (98-107); CREATININE 1.24 mg/dL (0.7-1.3)
[2019-09-10 07:53] VITALS: BP 154/90
[2019-09-10 07:58] LABS: BASOPHILS # (AUTO) 0.02 x10^3/uL (0-0.1); BASOPHILS % (AUTO) 0 % (0-1); EOSINOPHILS % (AUTO) 0 % (1-7); LYMPHOCYTES # (AUTO) 0.81 x10^3/uL (1-3.4); LYMPHOCYTES % (AUTO) 6 % (22-44); MD SCAN; MEAN CORPUSCULAR HEMOGLOBIN 26.8 pg (27.5-34.5); MEAN CORPUSCULAR HGB CONC 32.1 g/dL (33.2-36.2); MEAN CORPUSCULAR VOLUME 83.4 fL (81-97); MEAN PLATELET VOLUME 12.8 fL (7.4-10.4); MONOCYTES % (AUTO) 4 % (2-9); NEUTROPHILS # (AUTO) 11.62 x10^3/uL (1.8-6.8); NEUTROPHILS % (AUTO) 90 % (42-75); PLATELET COUNT 177 x10^3/uL (130-400); RED BLOOD COUNT 5.21 x10^6/uL (4.38-5.82); RED CELL DISTRIBUTION WIDTH 19.4 % (9.4-14.8)
[2019-09-10] MEDS: ALBUTEROL/IPRATROPIUM 2.5MG/0.5MG, 3 ML NPPB SCH ×4 (08:14→19:16)
[2019-09-10] MEDS: CLOPIDOGREL 75 MG TABLET PO SCH (08:20)
[2019-09-10] MEDS: AZITHROMYCIN 500 MG TABLET PO SCH (08:20)
[2019-09-10] MEDS: methylPREDNISolone SOD SUCC 40 MG/ML IV SCH (08:20)
[2019-09-10] MEDS: DILTIAZEM 240 MG CAP.ER.24H PO SCH (08:21)
[2019-09-10] MEDS: SPIRONOLACTONE 25 MG TABLET PO SCH (08:21)
[2019-09-10] MEDS: NICOTINE 7 MG/24 HR PATCH.TD24 TD SCH (08:21)
[2019-09-10] MEDS: TOPIRAMATE 100 MG TABLET PO SCH (08:21)
[2019-09-10] MEDS: APIXABAN 5 MG TABLET PO SCH ×2 (08:22→21:06)
[2019-09-10] MEDS: LISINOPRIL 20 MG TABLET PO SCH ×2 (08:22→21:06)
[2019-09-10] MEDS: BUDESONIDE 0.5 MG/2 ML INHA INH SCH ×2 (11:00→19:16)
[2019-09-10] MEDS: methylPREDNISolone SOD SUCC 125 MG/2 ML IV SCH ×3 (12:52→23:05)
[2019-09-10 12:57] VITALS: BP 142/86
[2019-09-10] MEDS: CEFTRIAXONE PMX 1GM/50ML 50 ML IV SCH (16:19)
[2019-09-10 19:12] VITALS: BP 131/76
[2019-09-10] MEDS: MONTELUKAST 10 MG TABLET PO SCH (21:06)
[2019-09-11 00:38] VITALS: BP 155/88
[2019-09-11] MEDS: ACETAMINOPHEN 325 MG TABLET PO PRN (01:20)
[2019-09-11] MEDS: METOPROLOL TARTRATE 50 MG TABLET PO SCH ×2 (05:43→17:54)
[2019-09-11] MEDS: methylPREDNISolone SOD SUCC 125 MG/2 ML IV SCH ×4 (05:44→20:28)
[2019-09-11 08:05] VITALS: BP 149/89
[2019-09-11] MEDS: BUDESONIDE 0.5 MG/2 ML INHA INH SCH ×2 (09:00→19:14)
[2019-09-11] MEDS: AZITHROMYCIN 500 MG TABLET PO SCH (09:30)
[2019-09-11] MEDS: APIXABAN 5 MG TABLET PO SCH ×2 (09:30→20:28)
[2019-09-11] MEDS: CLOPIDOGREL 75 MG TABLET PO SCH (09:30)
[2019-09-11] MEDS: DILTIAZEM 240 MG CAP.ER.24H PO SCH (09:30)
[2019-09-11] MEDS: SPIRONOLACTONE 25 MG TABLET PO SCH (09:30)
[2019-09-11] MEDS: TOPIRAMATE 100 MG TABLET PO SCH (09:31)
[2019-09-11] MEDS: LISINOPRIL 20 MG TABLET PO SCH ×2 (09:31→20:28)
[2019-09-11] MEDS: NICOTINE 7 MG/24 HR PATCH.TD24 TD SCH (09:32)
[2019-09-11 09:52] LABS: ANION GAP 7 mmol/L (5-15); CALCIUM 8.7 mg/dL (8.5-10.1); CHLORIDE 113 mmol/L (98-107); CREATININE 1.39 mg/dL (0.7-1.3)
[2019-09-11 10:07] LABS: BASOPHILS % (AUTO) 0 % (0-1); EOSINOPHILS % (AUTO) 0 % (1-7); LYMPHOCYTES # (AUTO) 0.67 x10^3/uL (1-3.4); LYMPHOCYTES % (AUTO) 5 % (22-44); MD SCAN; MEAN CORPUSCULAR HEMOGLOBIN 27.1 pg (27.5-34.5); MEAN CORPUSCULAR VOLUME 84.6 fL (81-97); MEAN PLATELET VOLUME 11.7 fL (7.4-10.4); MONOCYTES # (AUTO) 0.11 x10^3/uL (0.2-0.8); MONOCYTES % (AUTO) 1 % (2-9); NEUTROPHILS # (AUTO) 11.66 x10^3/uL (1.8-6.8); NEUTROPHILS % (AUTO) 94 % (42-75); PLATELET COUNT 206 x10^3/uL (130-400); RED BLOOD COUNT 5.17 x10^6/uL (4.38-5.82); RED CELL DISTRIBUTION WIDTH 20.2 % (9.4-14.8)
[2019-09-11] MEDS ORDERED: FUROSEMIDE 20 MG/2 ML IV ONE (11:00)
[2019-09-11] MEDS: ALBUTEROL/IPRATROPIUM 2.5MG/0.5MG, 3 ML NPPB PRN (11:04)
[2019-09-11 11:45] LABS: FIO2 RA %
[2019-09-11] MEDS ORDERED: FUROSEMIDE 20 MG/2 ML IV SCH (14:15)
[2019-09-11 15:30] VITALS: BP 146/85
[2019-09-11] MEDS: CEFTRIAXONE PMX 1GM/50ML 50 ML IV SCH (18:21)
[2019-09-11 19:03] VITALS: BP 132/69
[2019-09-11] MEDS: MONTELUKAST 10 MG TABLET PO SCH (20:28)
[2019-09-12 01:37] VITALS: BP 155/83
[2019-09-12] MEDS: methylPREDNISolone SOD SUCC 125 MG/2 ML IV SCH ×2 (02:48→17:30)
[2019-09-12] MEDS: METOPROLOL TARTRATE 50 MG TABLET PO SCH ×2 (05:43→17:31)
[2019-09-12] MEDS: ACETAMINOPHEN 325 MG TABLET PO PRN (05:47)
[2019-09-12 08:03] LABS: MEAN CORPUSCULAR HEMOGLOBIN 27.2 pg (27.5-34.5); MEAN CORPUSCULAR HGB CONC 32.3 g/dL (33.2-36.2); MEAN CORPUSCULAR VOLUME 84.1 fL (81-97); MEAN PLATELET VOLUME 11.9 fL (7.4-10.4); PLATELET COUNT 204 x10^3/uL (130-400); RED BLOOD COUNT 5.46 x10^6/uL (4.38-5.82); RED CELL DISTRIBUTION WIDTH 19.5 % (9.4-14.8)
[2019-09-12 08:06] LABS: ANION GAP 9 mmol/L (5-15); CALCIUM 8.8 mg/dL (8.5-10.1); CHLORIDE 110 mmol/L (98-107)
[2019-09-12 08:44] LABS: BASOPHILS # (AUTO) 0.01 x10^3/uL (0-0.1); BASOPHILS % (AUTO) 0 % (0-1); EOSINOPHILS # (AUTO) 0.01 x10^3/uL (0-0.4); EOSINOPHILS % (AUTO) 0 % (1-7); LYMPHOCYTES # (AUTO) 0.73 x10^3/uL (1-3.4); LYMPHOCYTES % (AUTO) 5 % (22-44); MD SCAN; MONOCYTES # (AUTO) 0.65 x10^3/uL (0.2-0.8); MONOCYTES % (AUTO) 5 % (2-9); NEUTROPHILS # (AUTO) 12.33 x10^3/uL (1.8-6.8); NEUTROPHILS % (AUTO) 90 % (42-75)
[2019-09-12 08:52] VITALS: BP 152/83
[2019-09-12] MEDS: BUDESONIDE 0.5 MG/2 ML INHA INH SCH ×2 (11:36→21:20)
[2019-09-12 12:10] LABS: FIO2 ROOM AIR %
[2019-09-12 12:46] VITALS: BP 146/77
[2019-09-12] MEDS: CLOPIDOGREL 75 MG TABLET PO SCH (12:48)
[2019-09-12] MEDS: APIXABAN 5 MG TABLET PO SCH ×2 (12:49→20:46)
[2019-09-12] MEDS: TOPIRAMATE 100 MG TABLET PO SCH (12:49)
[2019-09-12] MEDS: DILTIAZEM 240 MG CAP.ER.24H PO SCH (12:49)
[2019-09-12] MEDS: LISINOPRIL 20 MG TABLET PO SCH ×2 (12:50→20:47)
[2019-09-12] MEDS: AZITHROMYCIN 500 MG TABLET PO SCH (12:50)
[2019-09-12] MEDS: SPIRONOLACTONE 25 MG TABLET PO SCH (12:51)
[2019-09-12] MEDS: NICOTINE 7 MG/24 HR PATCH.TD24 TD SCH (12:52)
[2019-09-12 14:00] VITALS: BP 158/92
[2019-09-12] MEDS ORDERED: POTASSIUM CHLORIDE 20 MEQ TAB.ER.PRT PO ONE (18:00)
[2019-09-12] MEDS ORDERED: FUROSEMIDE 40 MG/4 ML IV ONE (18:00)
[2019-09-12] MEDS: CEFTRIAXONE PMX 1GM/50ML 50 ML IV SCH (18:38)
[2019-09-12 20:03] VITALS: BP 144/75
[2019-09-12] MEDS: MONTELUKAST 10 MG TABLET PO SCH (20:46)
[2019-09-13 00:17] VITALS: BP_SYST 154; BP_SYST 172; BP_DIAS 90
[2019-09-13] MEDS: methylPREDNISolone SOD SUCC 125 MG/2 ML IV SCH ×3 (02:05→21:40)
[2019-09-13] MEDS: ACETAMINOPHEN 325 MG TABLET PO PRN ×2 (03:37→18:12)
[2019-09-13] MEDS: METOPROLOL TARTRATE 50 MG TABLET PO SCH ×2 (05:35→17:01)
[2019-09-13 05:42] VITALS: BP 146/91
[2019-09-13 07:30] VITALS: BP 149/85
[2019-09-13] MEDS: BUDESONIDE 0.5 MG/2 ML INHA INH SCH ×2 (08:00→19:02)
[2019-09-13 08:07] LABS: ANION GAP 7 mmol/L (5-15); CALCIUM 8.6 mg/dL (8.5-10.1); CHLORIDE 112 mmol/L (98-107); CREATININE 1.41 mg/dL (0.7-1.3)
[2019-09-13 08:45] LABS: BASOPHILS % (AUTO) 0 % (0-1); EOSINOPHILS # (AUTO) 0.02 x10^3/uL (0-0.4); EOSINOPHILS % (AUTO) 0 % (1-7); LYMPHOCYTES # (AUTO) 0.78 x10^3/uL (1-3.4); LYMPHOCYTES % (AUTO) 6 % (22-44); MD SCAN; MEAN CORPUSCULAR HEMOGLOBIN 27.2 pg (27.5-34.5); MEAN CORPUSCULAR HGB CONC 32.3 g/dL (33.2-36.2); MEAN CORPUSCULAR VOLUME 84.4 fL (81-97); MEAN PLATELET VOLUME 11.6 fL (7.4-10.4); MONOCYTES # (AUTO) 0.44 x10^3/uL (0.2-0.8); MONOCYTES % (AUTO) 4 % (2-9); NEUTROPHILS # (AUTO) 11.44 x10^3/uL (1.8-6.8); NEUTROPHILS % (AUTO) 90 % (42-75); PLATELET COUNT 199 x10^3/uL (130-400); RED BLOOD COUNT 5.57 x10^6/uL (4.38-5.82); RED CELL DISTRIBUTION WIDTH 19.3 % (9.4-14.8)
[2019-09-13] MEDS: NICOTINE 7 MG/24 HR PATCH.TD24 TD SCH (09:09)
[2019-09-13] MEDS: CLOPIDOGREL 75 MG TABLET PO SCH (09:09)
[2019-09-13] MEDS: TOPIRAMATE 100 MG TABLET PO SCH (09:09)
[2019-09-13] MEDS: DILTIAZEM 240 MG CAP.ER.24H PO SCH (09:09)
[2019-09-13] MEDS: SPIRONOLACTONE 25 MG TABLET PO SCH (09:09)
[2019-09-13] MEDS: LISINOPRIL 20 MG TABLET PO SCH ×2 (09:10→21:39)
[2019-09-13] MEDS: APIXABAN 5 MG TABLET PO SCH ×2 (09:12→21:40)
[2019-09-13 13:20] VITALS: BP 144/73
[2019-09-13] MEDS: CEFTRIAXONE PMX 1GM/50ML 50 ML IV SCH (18:03)
[2019-09-13] MEDS: MONTELUKAST 10 MG TABLET PO SCH (21:39)
[2019-09-13 21:52] VITALS: BP 154/92
[2019-09-14 02:19] VITALS: BP 145/82
[2019-09-14] MEDS: ACETAMINOPHEN 325 MG TABLET PO PRN ×2 (04:57→08:13)
[2019-09-14] MEDS: METOPROLOL TARTRATE 50 MG TABLET PO SCH ×2 (05:32→17:17)
[2019-09-14 05:47] LABS: CHLORIDE 114 mmol/L (98-107)
[2019-09-14 05:58] LABS: ANION GAP 6 mmol/L (5-15); CALCIUM 8.7 mg/dL (8.5-10.1)
[2019-09-14 06:27] LABS: MD YES; MEAN CORPUSCULAR HEMOGLOBIN 27.2 pg (27.5-34.5); MEAN CORPUSCULAR HGB CONC 31.9 g/dL (33.2-36.2); MEAN CORPUSCULAR VOLUME 85.6 fL (81-97); MEAN PLATELET VOLUME 12.1 fL (7.4-10.4); PLATELET COUNT 200 x10^3/uL (130-400); RED BLOOD COUNT 5.73 x10^6/uL (4.38-5.82); RED CELL DISTRIBUTION WIDTH 18.8 % (9.4-14.8)
[2019-09-14 06:29] LABS: <PLATELET ESTIMATE> ADEQUATE; ANISOCYTOSIS 1+; LARGE PLATELETS 1+; LYMPH#(MANUAL) 1.13 x10^3/uL (1-3.4); LYMPHS% (MANUAL) 9 % (22-44); MONOS#(MANUAL) 1.01 x10^3/uL (0.3-2.7); MONOS% (MANUAL) 8 % (2-9); SEG#(MANUAL) 10.46 x10^3/uL (1.8-6.8); SEGS% (MANUAL) 83 % (42-75)
[2019-09-14 07:20] VITALS: BP 146/83
[2019-09-14] MEDS: CLOPIDOGREL 75 MG TABLET PO SCH (08:13)
[2019-09-14] MEDS: methylPREDNISolone SOD SUCC 125 MG/2 ML IV SCH (08:13)
[2019-09-14] MEDS: DILTIAZEM 240 MG CAP.ER.24H PO SCH (08:13)
[2019-09-14] MEDS: TOPIRAMATE 100 MG TABLET PO SCH (08:13)
[2019-09-14] MEDS: SPIRONOLACTONE 25 MG TABLET PO SCH (08:13)
[2019-09-14] MEDS: NICOTINE 7 MG/24 HR PATCH.TD24 TD SCH (08:13)
[2019-09-14] MEDS: APIXABAN 5 MG TABLET PO SCH ×2 (08:14→22:20)
[2019-09-14] MEDS: LISINOPRIL 20 MG TABLET PO SCH ×2 (08:14→22:20)
[2019-09-14] MEDS: BUDESONIDE 0.5 MG/2 ML INHA INH SCH ×2 (10:50→20:31)
[2019-09-14 13:35] VITALS: BP 144/80
[2019-09-14] MEDS: FUROSEMIDE 40 MG TABLET PO SCH (15:31)
[2019-09-14] MEDS: CEFTRIAXONE PMX 1GM/50ML 50 ML IV SCH (17:17)
[2019-09-14 21:40] VITALS: BP 162/115
[2019-09-14] MEDS: MONTELUKAST 10 MG TABLET PO SCH (22:20)
[2019-09-15 02:00] VITALS: BP 152/99
[2019-09-15 05:04] VITALS: BP 152/99
[2019-09-15] MEDS: BUDESONIDE 0.5 MG/2 ML INHA INH SCH (07:16)
[2019-09-15] MEDS: METOPROLOL TARTRATE 50 MG TABLET PO SCH ×2 (07:36→16:57)
[2019-09-15] MEDS: SPIRONOLACTONE 25 MG TABLET PO SCH (07:54)
[2019-09-15] MEDS: NICOTINE 7 MG/24 HR PATCH.TD24 TD SCH (07:54)
[2019-09-15] MEDS: CLOPIDOGREL 75 MG TABLET PO SCH (07:54)
[2019-09-15] MEDS: APIXABAN 5 MG TABLET PO SCH (07:54)
[2019-09-15] MEDS: DILTIAZEM 240 MG CAP.ER.24H PO SCH (07:54)
[2019-09-15] MEDS: LISINOPRIL 20 MG TABLET PO SCH (07:54)
[2019-09-15] MEDS: FUROSEMIDE 40 MG TABLET PO SCH (07:54)
[2019-09-15] MEDS: TOPIRAMATE 100 MG TABLET PO SCH (07:54)
[2019-09-15] MEDS: ACETAMINOPHEN 325 MG TABLET PO PRN (07:55)
[2019-09-15 09:26] VITALS: BP 135/87
[2019-09-15] MEDS ORDERED: HYDR-3343 PO (09:29)
[2019-09-15] MEDS ORDERED: FURO40TA6 PO (09:34)
[2019-09-15 15:59] VITALS: BP 139/94
== END 2019-09-15 17:55 | disposition home or self-care (01) | DRG 193 ==
LOC: ED 16:16 → EDIP 20:37 → 3N 20:43
PROVIDERS: ADMIT Internal Medicine; ATTEND Hospitalist
DX: J18.9 Pneumonia, unspecified organism (principal); J96.01 Acute respiratory failure with hypoxia; D68.59 Other primary thrombophilia; E66.2 Morbid (severe) obesity with alveolar hypoventilation; E87.3 Alkalosis; I13.0 Hypertensive heart and chronic kidney disease with heart failure and stage 1 through stage 4 chronic kidney disease, or unspecified chronic kidney disease; I50.32 Chronic diastolic (congestive) heart failure; N17.9 Acute kidney failure, unspecified; Z68.41 Body mass index [BMI] 40.0-44.9, adult; J43.9 Emphysema, unspecified; I48.0 Paroxysmal atrial fibrillation; F41.9 Anxiety disorder, unspecified; G47.33 Obstructive sleep apnea (adult) (pediatric); E78.5 Hyperlipidemia, unspecified; I08.1 Rheumatic disorders of both mitral and tricuspid valves; I25.10 Atherosclerotic heart disease of native coronary artery without angina pectoris; K59.00 Constipation, unspecified; N18.3 Chronic kidney disease, stage 3 (moderate); Z59.0 Homelessness; Z87.891 Personal history of nicotine dependence; Z91.14 Patient's other noncompliance with medication regimen; Z95.5 Presence of coronary angioplasty implant and graft
CPT/HCPCS: 36415; 36600; 87449; 99285; J7620; J7626; 71045; 71046; 80048; 80053; 82803; 83880; 84484; 85025; 87070; 87205; 87633; 93005; 93306; 94640; G0378; J0696; J1650; J1940; J0360; J2920; J2930; J7512

== ENCOUNTER 2019-10-02 03:17 | Emergency (ER) | payer MEDICAID ==
[~2019-10-02] VITALS: Ht 185.4 cm; Wt 130.0 kg
[2019-10-02] MEDS ORDERED: ASPIRIN 325 MG TABLET PO STA (03:24)
--- NOTE | 2019-10-02 03:29 | NUR ---
BIB [facility] WITH C/O SOB WAS D/ED FROM HERE 3 WEEKS AGO FOR BHRONCHITIS NOW BREATHING WORSE
[2019-10-02] MEDS ORDERED: SODIUM CHLORIDE FLUSH 10ML SYR IVF ONE (03:30)
[2019-10-02] MEDS ORDERED: ALBUTEROL/IPRATROPIUM 2.5MG/0.5MG, 3 ML NPPB SCH (03:30)
[2019-10-02] MEDS ORDERED: ALBUTEROL/IPRATROPIUM 2.5MG/0.5MG, 3 ML ONE (03:32)
[2019-10-02 04:09] LABS: ALBUMIN 2.8 g/dL (3.4-5.0); ANION GAP 6 mmol/L (5-15); CALCIUM 8.2 mg/dL (8.5-10.1); CHLORIDE 114 mmol/L (98-107)
[2019-10-02] MEDS ORDERED: ASPIRIN 325 MG TABLET ONE (04:09)
--- NOTE | 2019-10-02 04:12 | NUR ---
PT C/O DIFFICULTY BREATHING, STRONG PRODUCTIVE COUGH NOTED. PT REPORTS "FORGOT" TO GET PRESCRIPTIONS AND TAKE MEDICATIONS S/P DC FROM HOSPITAL FEW WEEKS AGO FOR C/O SAME. RT TREATMENT COMPLETED. PT DECLINING TO BE REPOSITIONED ON [facility]. PT ENCOURAGED TO USE CALL LIGHT IN HAND INSTEAD OF YELLING FOR RN. PT MEDICATED W/ ASA ORDERED. REVIEWED POC INCLUDING NEED FOR URINE SAMPLE, PENDING TESTS AND CHART REVIEW BY ERP.
[2019-10-02 04:16] LABS: ALANINE AMINOTRANSFERASE 29 U/L (12-78); ALKALINE PHOSPHATASE 98 U/L (45-117); BILIRUBIN,TOTAL 0.4 mg/dL (0.2-1.0); CREATININE 1.47 mg/dL (0.7-1.3); TOTAL PROTEIN 6.6 g/dL (6.4-8.2); TROPONIN I < 0.015 ng/mL (0.000-0.045)
--- NOTE | 2019-10-02 04:25 | NUR ---
PT PROVIDED W/ URINAL, AWARE NEED URINE COLLECTION FOR LAB. ASSISTED W/ REPOSITIONING ON GURNEY
[2019-10-02 04:29] LABS: MEAN CORPUSCULAR HEMOGLOBIN 27.5 pg (27.5-34.5); MEAN CORPUSCULAR HGB CONC 32.5 g/dL (33.2-36.2); MEAN CORPUSCULAR VOLUME 84.5 fL (81-97); MEAN PLATELET VOLUME 11.3 fL (7.4-10.4); PLATELET COUNT 210 x10^3/uL (130-400); RED BLOOD COUNT 5.15 x10^6/uL (4.38-5.82); RED CELL DISTRIBUTION WIDTH 19.9 % (9.4-14.8)
[2019-10-02 04:46] LABS: BASOPHILS # (AUTO) 0.08 x10^3/uL (0-0.1); BASOPHILS % (AUTO) 1 % (0-1); EOSINOPHILS # (AUTO) 0.31 x10^3/uL (0-0.4); EOSINOPHILS % (AUTO) 4 % (1-7); LYMPHOCYTES # (AUTO) 2.99 x10^3/uL (1-3.4); LYMPHOCYTES % (AUTO) 42 % (22-44); MD SCAN; MONOCYTES # (AUTO) 0.76 x10^3/uL (0.2-0.8); MONOCYTES % (AUTO) 11 % (2-9); NEUTROPHILS # (AUTO) 2.96 x10^3/uL (1.8-6.8); NEUTROPHILS % (AUTO) 42 % (42-75)
--- NOTE | 2019-10-02 04:59 | NUR ---
PT REPORTS IS FEELING BETTER. RESPIRATIONS EVEN AND UNLABORED AT THIS TIME.
[2019-10-02 05:00] VITALS: BP 131/85
--- NOTE | 2019-10-02 05:07 | NUR ---
ERP AT BEDSIDE TO DISCUSS DISCHARGE AND FOLLOW UP CARE, PT DENIED QUESTIONS/CONCERNS. BLUNGER MACHINE OPERATOR AT BEDSIDE TO COMPLETE EKG.
[2019-10-02 05:17] LABS: AMPHETAMINE SCREEN, URINE Negative (Negative); BARBITURATE SCREEN, URINE Negative (Negative); BENZODIAZEPINE SCREEN, URINE Negative (Negative); CANNABINOID SCREEN, URINE Negative (Negative); COCAINE SCREEN, URINE Negative (Negative); METHADONE SCREEN, URINE Negative (Negative); OPIATE SCREEN, URINE Negative (Negative)
--- NOTE | 2019-10-02 05:23 | NUR ---
REVIEWED DISCHARGE INSTRUCTIONS AND PRESCRIPTIONS W/ PT, VERBALIZED UNDERSTANDING TO INFORMATION PROVIDED INCLUDING FOLLOW UP CARE, RETURN PRECAUTIONS, IMPORTANCE OF TAKING MEDICATIONS AND DECREASING SMOKING. PT STATED WOULD GO TO [facility] TODAY AND FILL PRESCRIPTIONS INSTRUCTED. PT DENIED C/O PAIN AT TIME OF DISCHARGE. PT AMBULATED FROM ED.
== END 2019-10-02 05:26 | disposition home or self-care (01) ==
LOC: ED 05:05
DX: J44.1 Chronic obstructive pulmonary disease with (acute) exacerbation (principal); I48.20 Chronic atrial fibrillation, unspecified; I11.0 Hypertensive heart disease with heart failure; F17.210 Nicotine dependence, cigarettes, uncomplicated; Z72.9 Problem related to lifestyle, unspecified
CPT/HCPCS: 36415; 71045; 80053; 80307; 83880; 84484; 85025; 93005; 94640; 99284; J7620